=== PATIENT | male | born 1960 | race African-American/Black ===

== ENCOUNTER 2018-04-27 08:18 | Emergency (ER) | payer OTHER, SELFPAY ==
[2018-04-27 08:22] VITALS: BP 135/83; PULSE 74; RESP 18; TEMP 36.4; BMI 27.4
[2018-04-27] MEDS: SODIUM CHLORIDE 0.9% 1,000 ML 1000 ML IV (08:30)
--- NOTE | 2018-04-27 08:39 | DI.CT.S_ITS ---
PROCEDURE: CT HEAD/BRAIN WO CON INDICATIONS: Persistent dizziness. TECHNIQUE: Noncontrast 4.5 mm thick angled axial sections acquired from the foramen magnum to the vertex, with coronal and sagittal reformats. For radiation dose reduction, the following was used: automated exposure control, adjustment of mA and/or kV according to patient size. COMPARISON: None. FINDINGS: Image quality: Excellent. CSF spaces: Basal cisterns are patent. No extra-axial fluid collections. Ventricles are normal in size and shape. Brain: No intracranial hemorrhage, mass, or mass effect. Gonzalez-white matter interface is preserved. Skull and face: Calvarium and visualized facial bones are intact, without suspicious lesions. Sinuses: Visualized sinuses and mastoids are clear. IMPRESSION: 1. No acute intracranial abnormality. Dictated by: Alireza Cheatham M.D. on 04/27/2018 at 9:12 Approved by: Alireza Cheatham M.D. on 04/27/2018 at 9:13
[2018-04-27] MEDS: MECLIZINE HCL 12.5 MG TABLET 25 MG PO (09:19)
[2018-04-27] MEDS: ONDANSETRON 4 MG/2 ML INJ IV (09:19)
[2018-04-27] MEDS: SODIUM CHLORIDE 0.9% 1,000 ML 150 ML IV (09:19)
--- NOTE | 2018-04-27 09:23 | ED.DIZZY ---
HPI - Dizziness General Chief Complaint: Nausea/Vomiting/Diarrhea Stated Complaint: Nausea, weak, dizzy Time Seen by Provider: 04/27/18 08:23 Source: patient, EMS and RN notes reviewed Mode of arrival: EMS Limitations: no limitations History of Present Illness HPI Narrative: patient is a 57-year-old male who presents with high dizziness. He said he woke up this morning and felt dizzy. It is much worse whenever he moves. He feels nauseated he vomited a few times. It was most noticeable on the toilet. He did have 1 episode of diarrhea. he denies any chest pain heart palpitations or shortness of breath. He has no weakness or speech difficulty. MD complaint: dizziness Description: room spinning and lightheadedness Related Data Home Medications Medication Instructions Recorded Confirmed aspirin 81 mg PO QDAY #0 10/22/16 04/27/18 Previous Rx's Medication Instructions Recorded atorvastatin 80 mg PO HS #90 tab 11/11/16 metformin 850 mg PO BIDCC #180 tab 01/13/17 metoprolol succinate [Toprol XL] 25 mg PO QDAY #90 tab 01/13/17 glipizide 10 mg PO Q DAY #90 tab 06/02/17 meclizine 25 mg PO TID PRN #20 tab 04/27/18 ondansetron [Zofran ODT] 4 mg PO Q6H PRN #10 tab 04/27/18 Allergies Allergy/AdvReac Type Severity Reaction Status Date / Time No Known Drug Allergies Allergy Verified 04/27/18 08:34 Review of Systems Review of Systems All systems reviewed & are unremarkable except as noted in HPI and below Constitutional Denies chills, Denies fever(s), Denies lethargy and Denies weakness Eyes Denies change in vision, Denies eye discharge, Denies irritation and Denies loss of vision ENT Ears, Nose, Mouth, and Throat: Reports vertigo and Reports dizziness Cardiovascular Denies chest pain, Denies syncope, Denies irregular heart rhythm, Denies lightheadedness, Denies palpitations, Denies dyspnea, Denies dyspnea on exertion and Denies orthopnea Respiratory Denies cough, Denies dyspnea, Denies dyspnea on exertion and Denies wheezing Gastrointestinal Gastrointestinal: Denies abdominal pain, Denies change in bowel habits, Denies diarrhea, Denies nausea and Denies vomiting Musculoskeletal Denies back pain, Denies muscle weakness, Denies numbness and Denies tingling Integumentary/Breasts Denies pruritus, Denies erythema, Denies rash and Denies wounds Neurologic Reports system reviewed and no additional complaints, except as docu, Reports vertigo, Reports dizziness, Denies syncope, Denies lack of coordination, Denies loss of vision, Denies numbness, Denies convulsions, Denies seizure-like activity, Denies tingling and Denies weakness Endocrine Denies palpitations Allergic/Immunologic Denies wheezing PFSH Medical History Coronary artery disease (Acute) Diabetes (Acute) Family History Mother Diabetes mellitus Social History Smoking Status: Never smoker Exam Initial Vital Signs Initial Vital Signs: Vital Signs Temperature 97.6 F 04/27/18 08:22 Pulse Rate 74 04/27/18 08:22 Respiratory Rate 18 04/27/18 08:22 Blood Pressure 135/83 H 04/27/18 08:22 Const General: cooperative and well developed Nutritional Appearance: well nourished Orientation: alert, awake, oriented x3 and not confused Eyes EOM: EOM intact bilaterally Other: nystagmus to the right. Resp Effort & Inspection: normal respiratory effort, able to speak in complete sentences, no respiratory distress and no use of accessory muscles Auscultation: clear to auscultation bilaterally, no rales, no rhonchi and no wheezes Cardio Rate: regular rate Rhythm: regular rhythm Heart Sounds: no click, no gallops, no murmurs and no rubs Pulses: normal peripheral pulses Skin General: no rashes or lesions noted, No jaundice and No petechiae Neuro General: alert, oriented x3, gait normal and no focal motor deficits Cranial Nerves: CN's II-XI intact bilaterally, PERRL, EOM intact bilaterally, facial strength normal, able to rotate head bilaterally and able to elevate shoulders bilaterally Speech: speech normal Motor: muscle tone normal throughout Sensory Exam: no sensory deficits noted Coordination: [id number] test normal and [id number]-[id number] test normal Extrem General: full ROM, no clubbing, cyanosis or edema, no pedal edema and no calf tenderness Course Orders Ordered: ED Orders 04/27/18 08:39 CT head/brain wo con Stat 04/27/18 09:32 Complete Blood Count AUTO DIFF Stat Comprehensive Metabolic Panel Stat Troponin I Stat Discontinued Medications Sodium Chloride (Normal Saline 0.9%) 1,000 mls @ 1,000 mls/hr IV BOLUS ONE Stop: 04/27/18 09:25 Last Infusion: 04/27/18 09:26 Dose: 0 mls/hr Admin: 04/27/18 08:30 Dose: 1,000 mls/hr Sodium Chloride (Normal Saline 0.9%) 1,000 mls @ 150 mls/hr IV CONT IVONNE Last Infusion: 04/27/18 11:24 Dose: 0 mls/hr Admin: 04/27/18 09:19 Dose: 150 mls/hr Meclizine HCl (Antivert) 25 mg PO NOW ONE Stop: 04/27/18 08:40 Last Admin: 04/27/18 09:19 Dose: 25 mg Ondansetron HCl (Zofran) 4 mg IV NOW ONE Stop: 04/27/18 08:40 Last Admin: 04/27/18 09:19 Dose: 4 mg Vital Signs - 8 hr 04/27/18 08:22 04/27/18 11:00 Temperature 97.6 F Pulse Rate 74 81 Respiratory Rate 18 15 Blood Pressure 135/83 H Blood Pressure [Left Arm] 133/78 H Pulse Oximetry 99 MDM - Dizziness Lab Data Attestation: I reviewed the patient's lab results. Result diagrams: 04/27/18 09:32 04/27/18 09:32 Lab Results 04/27/18 04/27/18 Range/Units 09:32 09:32 WBC 7.6 (4.5-11.0) X10^3/uL RBC 4.53 (4.5-5.9) X10^6/uL Hgb 13.7 (13.5-17.5) g/dL Hct 40.6 L (41-53) % MCV 89.7 (80-100) fL MCH 30.1 (26-34) PG MCHC 33.6 (30-36) % RDW 13.1 (11.6-14.8) % Plt Count 155 (150-400) X10^3/uL Neut % (Auto) 66.9 (50-75) % Lymph % (Auto) 25.0 (25-40) % [place] % (Auto) 7.2 (3-14) % Eos % (Auto) 0.5 L (2-4) % Baso % (Auto) 0.4 (0-2) % Neut # (Auto) 5100 (8640-6492) /uL Sodium 143 (137-145) mmol/L Potassium 3.9 (3.4-5.1) mmol/L Chloride 103.0 (98-107) mmol/L Carbon Dioxide 26.0 (22-32) mmol/L BUN 15.0 (9-20) mg/dL Creatinine 0.70 (0.66-1.25) mg/dL Estimated GFR > 60.0 (>60) mL/min BUN/Creatinine Ratio 21.4 (6-22) Glucose 191 H (70-100) mg/dL Calcium 8.7 (8.4-10.2) mg/dL Total Bilirubin 0.5 (0.2-1.3) mg/dL AST 23 (17-59) IU/L ALT 27 (21-72) IU/L Alkaline Phosphatase 84 (38-126) U/L Troponin I 0.019 (0.01-0.034) ng/mL Total Protein 7.1 (6.3-8.2) g/dL Albumin 3.9 (3.5-5.0) g/dL Globulin 3.2 (1.7-4.1) g/dL Albumin/Globulin Ratio 1.2 (1.0-2.8) Imaging Data CT scan - head: Radiologist's impression: PROCEDURE: CT HEAD/BRAIN WO CON INDICATIONS: Persistent dizziness. TECHNIQUE: Noncontrast 4.5 mm thick angled axial sections acquired from the foramen magnum to the vertex, with coronal and sagittal reformats. For radiation dose reduction, the following was used: automated exposure control, adjustment of mA and/or kV according to patient size. COMPARISON: None. FINDINGS: Image quality: Excellent. CSF spaces: Basal cisterns are patent. No extra-axial fluid collections. Ventricles are normal in size and shape. Brain: No intracranial hemorrhage, mass, or mass effect. Gonzalez-white matter interface is preserved. Skull and face: Calvarium and visualized facial bones are intact, without suspicious lesions. Sinuses: Visualized sinuses and mastoids are clear. IMPRESSION: 1. No acute intracranial abnormality. Dictated by: Alireza Cheatham M.D. on 04/27/2018 at 9:12 ECG Data Attestation: I personally reviewed and interpreted this ECG as follows: Prior ECG tracings: available for review Interpretation: normal sinus rhythm rate [address] changes normal interval similar to previous in 2012 MDM Narrative Medical decision making narrative: The patient is feeling much better after Zofran and meclizine. He is able to sit up. this is likely of benign paroxysmal positional vertigo. I do not suspect stroke. Discharge Plan Departure Patient Disposition: Home, Self-Care Clinical Impression: Benign paroxysmal positional vertigo Discharge Date/Time: 04/27/18 11:26 Interventions: ED Discharge Assessment Last Done: 04/27/18 11:26 Instructions: Benign Paroxysmal Positional Vertigo Activity Restrictions/Additional Instructions: *You have been diagnosed with benign paroxysmal positional vertigo *What to do: Patient start to get better symptom control only at this time *Take medications as directed -Zofran every 4-6 hours needed for nausea or vomiting -meclizine as directed if needed for dizziness *Follow up with your primary care provider in 2-3 days *Return to ER if you should have persistent ongoing dizziness worsening dizziness, weakness difficulty speaking visual difficulty or any new, worsening or concerning symptoms Prescriptions: New ondansetron [Zofran ODT] 4 mg tablet,disintegrating 4 mg PO Q6H PRN (Reason: nausea and vomiting) Qty: 10 RF: 0 meclizine 25 mg tablet,chewable 25 mg PO TID PRN (Reason: dizziness) Qty: 20 RF: 0 No Action aspirin 81 MG tablet,delayed release (DR/EC) 81 mg PO QDAY Qty: 0 RF: 0 atorvastatin 80 MG tablet 80 mg PO HS Qty: 90 RF: 3 metformin 850 MG tablet 850 mg PO BIDCC Qty: 180 RF: 2 metoprolol succinate [Toprol XL] 25 MG tablet extended release 24 hr 25 mg PO QDAY Qty: 90 RF: 3 glipizide 10 MG tablet extended release 24hr 10 mg PO Q DAY Qty: 90 RF: 1
[2018-04-27 09:42] LABS: Add Manual Diff / Slide Review NO; Basophils Percent Auto 0.4 % (0-2); Eosinophils Percent Auto 0.5 % (2-4); Hematocrit 40.6 % (41-53); Hemoglobin 13.7 g/dL (13.5-17.5); Mean Corpuscular HGB Conc 33.6 % (30-36); Mean Corpuscular Hemoglobin 30.1 PG (26-34); Mean Corpuscular Volume 89.7 fL (80-100); Monocytes Percent Auto 7.2 % (3-14); Neutrophils Absolute Auto 5100 /uL (3000-5900); Neutrophils Percent Auto 66.9 % (50-75); Platelet Count 155 X10^3/uL (150-400); Red Blood Cell Count 4.53 X10^6/uL (4.5-5.9); Red Cell Distribution Width 13.1 % (11.6-14.8); White Blood Cell Count 7.6 X10^3/uL (4.5-11.0)
[2018-04-27 09:57] LABS: Alanine Aminotransferase 27 IU/L (21-72); Albumin 3.9 g/dL (3.5-5.0); Albumin Globulin Ratio 1.2 (1.0-2.8); Alkaline Phosphatase 84 U/L (38-126); Aspartate Aminotransferase 23 IU/L (17-59); BUN Creatinine Ratio 21.4 (6-22); Bilirubin Total 0.5 mg/dL (0.2-1.3); Calcium 8.7 mg/dL (8.4-10.2); Estimated Glomerular Filt Rate > 60.0 mL/min (>60); Globulin 3.2 g/dL (1.7-4.1); Glucose 191 mg/dL (70-100); HEMOLYSIS < 15 (0-50); Potassium 3.9 mmol/L (3.4-5.1); Sodium 143 mmol/L (137-145); Total Protein 7.1 g/dL (6.3-8.2)
[2018-04-27 10:09] LABS: Troponin I 0.019 ng/mL (0.01-0.034)
[2018-04-27 11:00] VITALS: BP 133/78; PULSE 81; RESP 15; O2SAT 99
== END 2018-04-27 11:26 | disposition home or self-care (01) ==
LOC: ED 10:25
PROVIDERS: Emergency Provider Emergency Medicine; Family Provider Family Medicine; PCP Family Medicine
DX: H81.10 Benign paroxysmal vertigo, unspecified ear (principal)
CPT/HCPCS: 70450; 80053; 82962; 84484; 85025; 93005; 96361; 96374; 99283; 99285; J2405

== ENCOUNTER 2018-04-28 02:40 | Observation (INO) | payer OTHER, SELFPAY ==
[2018-04-28] VITALS (8 sets, daily range): BP systolic 122–175; BP diastolic 70–96; PULSE 76–103; RESP 16–20; TEMP 36.4–36.9; O2SAT 95–99; BMI 28.3
--- NOTE | 2018-04-28 02:54 | ED.DIZZY ---
HPI - Dizziness General Chief Complaint: Dizziness Stated Complaint: HAS JAM, DIZZINESS Time Seen by Provider: 04/28/18 02:45 Source: patient and family Mode of arrival: ambulatory Limitations: no limitations History of Present Illness HPI Narrative: Patient returns to the ED forevaluation and treatment of dizziness. His symptoms started 2-3 days ago. He states his dizziness is more significant when standing up or moving his head. It improves when he is still and closes his eyes. He denies associated symptoms such as slurred speech, blurred vision or facial weakness. He denies any numbness, weakness or tingling his extremities. He denies recent illness such as runny nose, sore throat or cough. He was seen and evaluated in the emergency department earlier and had negative head CT and was discharged after symptoms improved from a dose meclizine. He went home and was unable to get his prescription filled had symptoms starting in at 1:00 a.m. complaint: dizziness Onset (ago): day(s) Timing: unsure Description: room spinning History of similar episodes: No History of trauma: No Severity: moderate Relieving factors: remaining still Exacerbating factors: movement Associated symptoms: ataxia Related Data Home Medications Medication Instructions Recorded Confirmed aspirin 81 mg PO QDAY #0 10/22/16 04/28/18 Multiple Vitamin-Minerals 1 tab PO DAILY 04/28/18 04/28/18 Previous Rx's Medication Instructions Recorded atorvastatin 80 mg PO HS #90 tab 11/11/16 metformin 850 mg PO BIDCC #180 tab 01/13/17 metoprolol succinate [Toprol XL] 25 mg PO QDAY #90 tab 01/13/17 glipizide 10 mg PO Q DAY #90 tab 06/02/17 meclizine 25 mg PO TID PRN #20 tab 04/27/18 ondansetron [Zofran ODT] 4 mg PO Q6H PRN #10 tab 04/27/18 Allergies Allergy/AdvReac Type Severity Reaction Status Date / Time No Known Drug Allergies Allergy Verified 04/27/18 08:34 Review of Systems Review of Systems All systems reviewed & are unremarkable except as noted in HPI and below Constitutional Denies chills, Denies fever(s), Denies lethargy and Denies weakness Eyes Denies change in vision, Denies eye discharge, Denies irritation and Denies loss of vision ENT Ears, Nose, Mouth, and Throat: Denies change in voice, Reports vertigo, Reports dizziness, Denies neck pain and Denies sore throat Cardiovascular Denies chest pain, Denies irregular heart rhythm, Denies lightheadedness, Denies palpitations, Denies dyspnea, Denies dyspnea on exertion and Denies orthopnea Respiratory Denies cough, Denies dyspnea, Denies dyspnea on exertion and Denies wheezing Gastrointestinal Gastrointestinal: Reports nausea Genitourinary Denies hematuria, Denies flank pain, Denies urinary incontinence and Denies urinary urgency Musculoskeletal Denies neck pain Integumentary/Breasts Denies pruritus, Denies erythema, Denies rash and Denies wounds Neurologic Reports vertigo, Reports dizziness, Denies loss of vision and Denies weakness Psychiatric Reports system reviewed and no additional complaints, except as docu Endocrine Denies palpitations Allergic/Immunologic Denies wheezing [facility] Medical History Coronary artery disease (Acute) Diabetes (Acute) Family History: Reviewed 04/28/18 by Roro Peñaloza DO Social History household members: spouse and family Smoking Status: Never smoker alcohol intake: former Exam Narrative Exam Narrative: On arrival patient is pleasant 57M obviously dizzy and stuggling to walk a straight line. Initial Vital Signs Initial Vital Signs: Vital Signs Temperature 97.8 F 04/28/18 02:55 Pulse Rate 76 04/28/18 02:55 Respiratory Rate 18 04/28/18 02:55 Blood Pressure 142/78 H 04/28/18 02:55 Pulse Oximetry 98 04/28/18 02:55 Const General: cooperative and well developed Nutritional Appearance: well nourished Orientation: alert, awake, oriented x3 and not confused [facility] Head: normocephalic and atraumatic Ears: external ears normal and TM's normal bilaterally Nose: external nose normal and No nasal discharge Face and sinus: sinuses nontender, face symmetric, no sinus tenderness and No dry mucous membranes Mouth: oral mucosae normal and moist mucous membranes Teeth and gingiva: dentition normal Throat: tonsils normal and uvula midline Eyes General: appearance normal, both eyes and all related structures Eyelids: eyelids normal Conjunctivae: conjunctivae normal Sclera: sclerae normal Pupils: PERRL EOM: EOM intact bilaterally Neck Neck: normal visual inspection, trachea midline, No lymphadenopathy, No midline deformity and No JVD Lymphatic: No lymphedema Resp Effort & Inspection: normal respiratory effort, able to speak in complete sentences, no respiratory distress and no use of accessory muscles Auscultation: clear to auscultation bilaterally, no rales, no rhonchi and no wheezes Cardio Rate: regular rate Rhythm: regular rhythm Heart Sounds: no click, no gallops, no murmurs and no rubs Pulses: normal peripheral pulses GI Inspection: non-distended Palpation: soft, no hepatosplenomegaly, No guarding, No pulsatile mass and No tender Auscultation: normal bowel sounds Back/Spine/Pelvis Back: No CVA tenderness Cervical Spine: cervical ROM normal and No pain with cervical ROM Thoracic/Lumbar Spine: thoracic and lumbar spine normal to inspection Neuro General: alert, oriented x3, gait normal, no focal motor deficits and CN's II-XI intact bilaterally Speech: speech normal Gait: ataxic Motor: muscle tone normal throughout Sensory Exam: no sensory deficits noted Other: NIH Stroke Scale 1a. LOC: Patient is alert and keenly responsive (0) 1b. LOC Questions: Patient answers both LOC questions accurately (0) 1c. LOC Commands: Patient performs both tasks correctly (0) 2. Best Gaze: Normal (0) 3. Visual: No visual loss (0) 4. Facial palsy: Normal symmetrical movements (0) 5. Motor arm: No drift (0) 6. Motor leg: No drift (0) 7. Limb ataxia: Absent (0) 8. Sensory: Normal (0) 9. Best language: No aphasia; normal (0) 10. Dysarthria: Normal (0) 11. Extinction and inattention: No abnormality (0) NIHSS: 0 HINTS Exam: 1. Head Impulse: smooth eye movements, no saccade 2. Nystagmus: Mild R nystagmus, unilateral 3. Test of Skew: No motion of eyes Extrem General: full ROM, no clubbing, cyanosis or edema, no pedal edema and no calf tenderness Course Orders Ordered: Acetaminophen (Tylenol) 650 mg PO Q6HR PRN PRN Reason: As Needed for Fever/Mild Pain Aspirin (Aspirin Ec) 81 mg PO DAILY IVONNE Atorvastatin Calcium (Lipitor) 80 mg PO QHS [facility] Last Admin: 04/28/18 21:12 Dose: 80 mg Meclizine HCl (Antivert) 25 mg PO TID PRN PRN Reason: dizziness Metformin HCl (Glucophage) 850 mg PO BIDWM IVONNE Last Admin: 04/28/18 17:03 Dose: 850 mg Admin: 04/28/18 09:48 Dose: 850 mg Ondansetron HCl (Zofran Odt) 4 mg PO Q6H PRN PRN Reason: nausea and vomiting Discontinued Medications Aspirin (Aspirin Chew) 324 mg PO NOW ONE Stop: 04/28/18 06:04 Last Admin: 04/28/18 06:05 Dose: 324 mg Meclizine HCl (Antivert) 50 mg PO NOW ONE Stop: 04/28/18 03:05 Last Admin: 04/28/18 03:13 Dose: 50 mg Reevaluation(s) Reevaluation #1: patient has resolution of symptoms after meclizine Consultations Consultation #1: upon receipt of CTA I placed a call to [facility] Stroke. Case discussed with Dr. Crawford and he states the vertebral artery stenosis is unlikely to be the cause of today's symptoms but given patient risk factors, lack of available followup, CT findings that we should admit and complete a stroke work up with MR/MRA Time: 06:09 Consultation #2: Dr. Peñaloza contacted regarding patient, she is happy to accept patient on her service and will evalutate in the ED Time: 06:10 Vital Signs - 8 hr 04/29/18 05:17 Temperature 97.9 F Pulse Rate 86 Respiratory Rate 20 Blood Pressure 141/84 H MDM - Dizziness Differential Diagnosis Likely benign paroxysmal positional vertigo, orthostatic hypotension, vertebral basilar insufficiency, cerebrovascular accident, acute vestibular neuronitis and transient cerebral ischemia Medical Records Attestation: I reviewed the patient's medical records. Lab Data Attestation: I reviewed the patient's lab results. reviewed earlier labs Lab Results 04/28/18 04/28/18 Range/Units Unknown Unknown Hemoglobin A1c 12.1 H (4.0-6.0) % Triglycerides 77 (35-150) mg/dL Cholesterol 203 H (140-199) mg/dL LDL Cholesterol, Calc 131 H (<100) mg/dL HDL Cholesterol 57 (40-60) mg/dL Imaging Data CTA Head/Neck: Radiologist's impression: CTA Neck: No occlusion, dissection. 40-50% focal stenosis of L vertebral artery. CTA Head: No occlusion or critical stenosis of intracranial vessels. Calcifications of vertebral arterios CT Head: No acute findings. Discharge Plan Departure Patient Disposition: Admitted as Observation Clinical Impression: Vertigo, Stenosis of left vertebral artery Discharge Date/Time: 04/28/18 08:08 Interventions: ED Discharge Assessment Last Done: 04/28/18 08:07 Admit Date/Time: 04/28/18 06:23 Admit Provider: Roro Peñaloza
[2018-04-28] MEDS: MECLIZINE HCL 12.5 MG TABLET 50 MG PO (03:13)
--- NOTE | 2018-04-28 04:00 | DI.CT.S_ITS ---
PROCEDURE: CT ANGIO HEAD AND NECK INDICATIONS: ongoing dizziness TECHNIQUE: Pre-contrast 4.5 mm thick sections acquired from the foramen magnum to the vertex. After the administration of intravenous contrast, 1 mm thick sections acquired from the aortic arch through the [place]. Post-contrast 4.5 mm thick sections then re-acquired from the foramen magnum to the vertex. 3-dimensional aswopxm-kpmjtjjtz-gttkyrafeo (MIP) and/or volume rendering reformats were acquired of the central intracranial vasculature and neck separately. COMPARISON: [facility], CT, CT HEAD/BRAIN WO CON, 04/27/2018, 8:41. FINDINGS: Image quality: Excellent. BRAIN: CSF spaces: Ventricles are normal in size and shape. Basal cisterns are patent. No extra-axial fluid collections. Brain: No midline shift. No intracranial bleeds or masses. Gonzalez-white matter interface appears intact. Skull and face: Calvarium and facial bones appear intact, without suspicious lesions. Orbits appear normal. Sinuses: Sinuses and mastoids are clear. HEAD CT ANGIOGRAPHY: Anterior circulation: Intracranial internal carotid arteries are normal in size and flow. The flow within the paired anterior cerebral arteries is normal and symmetric. The flow within the middle cerebral arteries is normal and symmetric. The anterior communicating artery is seen. No aneurysms are seen. Posterior circulation: Visualized portions of the vertebral arteries demonstrate normal caliber, and join to form a normal appearing basilar artery. Flow within the posterior cerebral arteries is normal and symmetric. No aneurysms are seen. NECK CT ANGIOGRAPHY: Carotid system: The great vessels demonstrate a conventional anatomy as they arise from the aortic arch. The origins of the common carotid arteries appear patent. The common carotid arteries demonstrate normal caliber and courses. The bifurcation regions are both widely patent. The internal carotid arteries demonstrate normal calibers and courses. Posterior circulation: The origins of the vertebral arteries both appear widely patent. There bilateral vertebral artery atherosclerotic calcifications, with 40-50% focal stenosis involving the left vertebral artery at the proximal V4 segment. Normal appearing basilar artery. Soft tissues: Visualized neck soft tissues demonstrate no suspicious abnormalities. Bones: No suspicious bony lesions. Mild discogenic changes are seen in the cervical spine Visualized cervical spine appears normally aligned. IMPRESSION: Mild carotid atherosclerosis. No focal ICA stenosis or occlusion. Scattered vertebral artery calcifications bilaterally with focal 40-50% left vertebral artery stenosis as above. Any quantitative measurements of stenosis were performed using NASCET criteria. Dictated by: Tripp Lema M.D. on 04/28/2018 at 7:34 Approved by: Tripp Lema M.D. on 04/28/2018 at 7:54
--- NOTE | 2018-04-28 06:03 | PC.NURSE ---
pt reports ambulated to bathroom in stead gait and back to bed with improved dizziness.
[2018-04-28] MEDS: ASPIRIN 81 MG TAB 324 MG PO (06:05)
--- NOTE | 2018-04-28 08:24 | DI.ECHO.S_ITS ---
[facility] +---------+ : : [address] : [address] : : : : [id number] : : : : Phone: [phone]+ Echocardiogram Report + + :Name: HEAVEN CESPEDES V Study Date: 04/28/2018 Height: 67 in : :[facility] Weight: 175 lb : : Gender: Male BSA: 1.9 m2 : :: 1960 Age: 57 yrs BP: 175/96 mmHg: :Reason For Study: CAD : : Performed By: Sendy Young : :Referring: EARL ORDONEZ : + + Interpretation Summary The left ventricle is normal in size. The ejection fraction is estimated to be 55-60%. The right ventricle is grossly normal size. The right ventricular systolic function is normal. No significant valvular pathology seen. Procedure: A two-dimensional transthoracic echocardiogram with color flow and Doppler was performed. The study quality was technically adequate. There is no prior echocardiogram noted for this patient. The patient was in normal sinus rhythm during the exam. Left Ventricle: The left ventricle is normal in size. There is normal left ventricular wall thickness. There is no thrombus. The ejection fraction is estimated to be 55-60%. There are no focal wall motion abnormalities. Assessment of diastolic parameters indicates a relaxation abnormality of the left ventricle, consistent with normal filling pressures. Right Ventricle: The right ventricle is grossly normal size. The right ventricular systolic function is normal. Atria: The left atrial size is normal. Right atrial size is normal. The interatrial septum is intact with no evidence for an atrial septal defect. Mitral Valve: The mitral valve leaflets appear borderline thickened, but open well. There is mild mitral annular calcification. There is trace mitral regurgitation. Aortic Valve: The aortic valve is trileaflet. The aortic valve opens well. No aortic regurgitation is present. Tricuspid Valve: The tricuspid valve is normal in structure and function. There is trace tricuspid regurgitation. The right ventricular systolic pressure is estimated at 18.3 mmHg assuming a right atrial pressure of 3 mm Hg. Pulmonic Valve: The pulmonic valve is not well seen, but is grossly normal. There is no pulmonic valvular regurgitation. Great Vessels: The aortic root is normal size. The dimensions of the ascending aorta are normal. The IVC is of normal diameter and collapses greater than 50% with a sniff. This suggests a low right atrial pressure of 3 mm Hg. Pericardium/ Pleura There is no pericardial effusion. There is no pleural effusion. MMode/2D Measurements & Calculations LVIDd: 5.3 cm Ao root diam: 3.2 cm LVIDs: 3.9 cm Aortic Jxn: 2.7 cm FS: 26.1 % asc Aorta Diam: 3.3 cm EPSS: 0.92 cm Ao Arch Diam (Prox Trans): 2.9 cm IVSd: 1.0 cm LVPWd: 0.88 cm LV rincon. diameter/BSA (cm/m^2): 2.8 LV sys. diameter/BSA (cm/m^2): 2.1 LA dimension: 3.6 cm RA long axis: 4.5 cm LA A2 area: 15.0 cm2 RA area: 14.2 cm2 LA A4 area: 15.5 cm2 RA vol: 37.8 ml LA length (vol): 4.7 cm RA : 19.8 ml/m2 LA vol: 41.8 ml IVC diam: 0.74 cm LA vol index: 21.9 ml/m2 RVDd major: 5.9 cm RVD1 (basal): 3.0 cm RVD2 (mid): 2.4 cm Doppler Measurements & Calculations Ao V2 max: 144.4 cm/sec MV E max roman: 71.3 cm/sec Ao V2 mean: 98.1 cm/sec MV A max roman: 75.5 cm/sec Ao max P.3 mmHg MV E/A: 0.94 Ao mean P.4 mmHg Med Peak E' Roman: 7.7 cm/sec Ao V2 VTI: 28.8 cm E/E' med: 9.2 Lat Peak E' Roman: 10.5 cm/sec E/E' lat: 6.8 E/e' average: 8.0 MV dec time: 0.19 sec MV P1/2t: 58.4 msec PA V2 max: 89.8 cm/sec MV P1/2t max roman: 72.2 cm/sec PA V2 mean: 62.8 cm/sec MVA(P1/2t): 3.8 cm2 PA mean P.8 mmHg PA Accel Time: 0.14 sec Reading Physician:PM
--- NOTE | 2018-04-28 08:28 | PM.HP.1 ---
History of Present Illness Chief complaint: Vertigo/ Stenosis of the left Vetebral Artery Narrative: Tanner Ordonez is a 57 year old male with history of coronary artery disease with stent placement in 2001, hypertension, diabetes, hyperlipidemia who presented twice to the emergency department in the last 24 hr for dizziness. During his 1st visit he was diagnosed with BPPV which responded miraculously to meclizine. His 2nd episode of dizziness started at 1:00 a.m. while he was lying in bed. He became nauseous and diaphoretic. When he sat up he became dizzy. He was not able to walk unaided at this time. He does report an episode of vomiting as well. A CT angio of his head showed a 50% left vertebral artery blockage. He tells me he has not been taking his aspirin, atorvastatin, metoprolol, or diabetic medications. He tells me that things were under control and he and Dr. Morillo were reducing these medications. Patient History Medical History Coronary artery disease (Acute) Diabetes (Acute) Family & Social History Family History: Reviewed 04/28/18 by Roro Peñaloza DO Tobacco & Substance use: Smoking Status Never smoker alcohol intake frequency 0-2 drinks per day Substance Use Type does not use Meds Home Medications Medication Instructions Recorded Confirmed Type aspirin 81 mg PO QDAY #0 10/22/16 04/28/18 History atorvastatin 80 mg PO HS #90 tab 11/11/16 04/28/18 Rx metformin 850 mg PO BIDCC #180 tab 01/13/17 04/28/18 Rx metoprolol succinate [Toprol XL] 25 mg PO QDAY #90 tab 01/13/17 04/28/18 Rx glipizide 10 mg PO Q DAY #90 tab 06/02/17 04/28/18 Rx meclizine 25 mg PO TID PRN #20 tab 04/27/18 04/28/18 Rx ondansetron [Zofran ODT] 4 mg PO Q6H PRN #10 tab 04/27/18 04/28/18 Rx Multiple Vitamin-Minerals 1 tab PO DAILY 04/28/18 04/28/18 History Allergies Allergy/AdvReac Type Severity Reaction Status Date / Time No Known Drug Allergies Allergy Verified 04/27/18 08:34 Review of Systems Review of Systems All systems reviewed & are unremarkable except as noted in HPI and below Exam Vital Signs (past 8 hours): Vital Signs - 8 hr 04/28/18 02:55 04/28/18 06:01 Temperature 97.8 F Pulse Rate 76 87 Respiratory Rate 18 16 Blood Pressure 142/78 H Blood Pressure [Left Arm] 143/86 H Pulse Oximetry 98 98 Pulse Oximetry 98 Oxygen Delivery Method Room Air Narrative Exam Narrative: GENERAL: Well-appearing, well-nourished and in no acute distress. HEENT: Head normocephalic, atraumatic. Eyes pupils equal round and reactive to light, extraocular movements intact, sclera anicteric, conjunctivae normal. Tympanic membranes normal. Nares patent. Mucous membranes moist. NECK: Supple, full range of motion CHEST: Breath sounds equal bilaterally, no wheezes rales or rhonchi. CARDIAC: Regular rate and rhythm without murmurs, rubs or gallops. ABDOMEN: Soft, nontender. Normoactive bowel sounds all 4 quadrants. No guarding or rebound. EXTREMITIES: Normal range of motion, no clubbing or edema. NEUROLOGICAL: Cranial nerves II through XII grossly intact. Normal speech. SKIN: Warm, dry, no petechiae, no rashes or lesions. Objective Labs Labs: Labs are from his 1st emergency department visit 04/27/2018 at 9:32 a.m. He had a fairly unremarkable CBC, normal comprehensive metabolic panel with the exception of glucose at 191, troponin of 0.019 Hemoglobin A1c of 6.9 in October of 2017 Triglycerides were 55, total cholesterol 214, LDL 146, and HDL 57 Assessment & Plan (1) Stenosis of left vertebral artery: Current visit: Yes Status: Acute Continue on aspirin 81 mg at this time since patient has not been taking this medication. Will review MRI results to further understand if this is the cause of his vertigo. He also will need good disease management for his underlying atherosclerosis to prevent further worsening. See below. (2) Vertigo: Current visit: Yes Status: Acute Continue with meclizine as needed. MRI of the brain to determine if there are any lesions causing the vertigo. (3) Coronary artery disease involving [place] coronary artery of [place] heart without angina pectoris: Current visit: Yes Status: Chronic Will monitor for signs of arrhythmia. Will continue 81 mg of aspirin. Will continue his atorvastatin. (4) Hypertension: Qualifiers: Hypertension type: secondary to endocrine disorders Qualified Code(s): I15.2 - Hypertension secondary to endocrine disorders Current visit: Yes Status: Chronic Blood pressures have been in the mild hypertensive range with systolics in the 140s. He will likely need to have his losartan restarted once this acute phase has subsided. Would not want to lower his blood pressures further at this time. (5) Hyperlipidemia: Current visit: Yes Status: Chronic Restart atorvastatin at 80 mg given his risk factors. (6) Type 2 diabetes mellitus without complication: Current visit: Yes Status: Chronic Will check a hemoglobin A1c to see what kind of control he has had over the past 3 months. At his visit in October he had a hemoglobin A1c of 6.9 and was diet controlled per patient. (7) Non compliance w medication regimen: Current visit: Yes Status: Acute Will work with patient to identify the source of his noncompliance. He will require close follow-up. Time Spent With Patient Time with patient: Greater than 35 minutes
[2018-04-28 09:44] LABS: Cholesterol 203 mg/dL (140-199); HDL Cholesterol 57 mg/dL (40-60); LDL Cholesterol Calculated 131 mg/dL (<100); Triglycerides 77 mg/dL (35-150)
[2018-04-28] MEDS: METFORMIN 850 MG TABLET PO ×2 (09:48→17:03)
[2018-04-28 09:52] LABS: Hemoglobin A1C% w Est Avg Glu 12.1 % (4.0-6.0)
--- NOTE | 2018-04-28 11:09 | ST.IPIE ---
Current Diagnoses Type 2 diabetes mellitus without complications (04/28/18) Hyperlipidemia, unspecified (04/28/18) Hypertension secondary to endocrine disorders (04/28/18) Atherosclerotic heart disease of [place] coronary artery without angina pectoris (04/28/18) Occlusion and stenosis of left vertebral artery (04/28/18) Dizziness and giddiness (04/28/18) Patient's other noncompliance with medication regimen (04/28/18) Past Medical History (Last Reviewed 04/28/18 @ 09:12 by Radhika Monsivais, PT) Stenosis of left vertebral artery (Acute Medical) Vertigo (Acute Medical) Coronary artery disease involving [place] coronary artery of [place] heart without angina pectoris (Chronic Medical 11/11/16) Hypertension (Chronic Medical) Hyperlipidemia (Chronic Medical 11/11/16) Type 2 diabetes mellitus without complication (Chronic Medical 11/11/16) Coronary artery disease (Acute Medical) Diabetes (Acute Medical) ST IP Initial Evaulation Report SCHOOL PS[employer]CHOLOGY SPECIALIST Clinical Swallow Evaluation Start: 04/28/18 10:50 Freq: Status: Active Protocol: Document 04/28/18 10:54 [facility] (Rec: 04/28/18 11:09 [facility] [id number]) Clinical Swallow Evaluation Session Time Visit Start Time 10:30 Visit Stop Time 10:45 Total Visit Minutes [address] Peñaloza Reason for Referral Protocol Setting Assessment Location Acute Care Visit Type Note Type Initial Evaluation Next Note Type Next Note Type Discharge Summary Patient Information Identification Type Name Date of ID Card History Patient is a 57-year-old male who came to [facility] twice with complaints of dizziness and nausea. He has be inconsistent in taking medication recently. He has a medical history of CAD with stent placement in 2001, HTN, diabetes and hyperlipidemia. A CT of the head showed 50% left vertebral artery blockage . Per Dr Peñaloza's note, an MRI may be warranted as well. No previous history of dysphagia or aphasia, per patient. Subjective Observations Patient awake and alert, resting in bed with no family present. No complaints of pain pre/post evaluation. Denied any change in voice/speech/ swallowing ability. Thinking clearly. Independently trialed all items in swallow evaluation. Stated he was unsure if it was safe for him to drive with his condition and is eager to resolve his dizziness issue. SCHOOL PSYCHOLOGY SPECIALIST mentioned outpatient PT for vestibular emphasis and the patient was very interested in this. Yes, I need to do that. SCHOOL PSYCHOLOGY SPECIALIST will follow up with PT about this. Evaluation Liquids Trialed Thin Solids Trialed Dysphagia Advanced Regular Administration Type Controlled Cup Sip Cup Consecutive Sips Staw Self-Feeding Oral Impairment WNL Oral Strategies Upright at 90 degrees Oral Phase Comments No oral impairment Pharyngeal Impairment WNL Pharyngeal Phase Comments No pharyngeal impairment Findings Dysphagia Type No dysphagia Impressions Patient presents with no oropharyngeal difficulty or impairment. He was able to independently tolerate soft fruit, a regular jason cracker and multiple cup/straw sips of water and coffee without any difficulty. No overt s/s of aspiration. No oropharyngeal change or decline in function. Cough/ throat clear strong and productive. Patient observed to be and reported to be at baseline. No reported difficulty with taking medication. Recommend regular textures with thin liquids, per baseline. SCHOOL PSYCHOLOGY SPECIALIST spoke with patient to educate him on how speech therapy can be of assistance if he ever experiences any changes in speech, swallowing, voice, or cognition. The patient verbalized understanding. No further speech therapy services warranted at this time. Plan to D/C the patient. Please reconsult if needed, Diet Recommendations Liquids Order Thin Diet Order Regular Medication Recommendations As Tolerated Aspiration Precautions Recommended Precautions Upright at 90 Degrees Treatment Plan Placement Recommendations after Outpatient Therapy Discharge Appropriate for Therapy No Therapy Recommendations No speech therapy services warranted at this time. Please reconsult if needed. Referrals/Other Recommended Referrals Physical Therapy
--- NOTE | 2018-04-28 12:32 | OT.IP.EVAL ---
Current Diagnoses Type 2 diabetes mellitus without complications (04/28/18) Hyperlipidemia, unspecified (04/28/18) Hypertension secondary to endocrine disorders (04/28/18) Atherosclerotic heart disease of [place] coronary artery without angina pectoris (04/28/18) Occlusion and stenosis of left vertebral artery (04/28/18) Dizziness and giddiness (04/28/18) Patient's other noncompliance with medication regimen (04/28/18) Past Medical History (Last Reviewed 04/28/18 @ 09:12 by Radhika Monsivais, PT) Stenosis of left vertebral artery (Acute) Vertigo (Acute) Coronary artery disease involving [place] coronary artery of [place] heart without angina pectoris (Chronic 11/11/16) Hypertension (Chronic) Hyperlipidemia (Chronic 11/11/16) Type 2 diabetes mellitus without complication (Chronic 11/11/16) Coronary artery disease (Acute) Diabetes (Acute) Occupational Therapy Inpatient Evaluation/Re-Eval M1 PT/OT-IP Prior Functional Status Start: 04/28/18 12:09 Freq: NEEDED Status: Active Protocol: Document 04/28/18 12:09 [facility] (Rec: 04/28/18 12:31 [facility] [id number]) Medical Review Prior Functional Status Medical History Reviewed Yes Diet/Fluid Consistency Regular Thin Liquids Mobility and Gait CPmpletely independent with no devices. Activities of Daily Living and IADL's Independent. Social History Household Members spouse family Living Arrangements House Number of Floors (Floors) Two Floors Number of Stairs To Enter/Railing? 1 step to get into the house and one flight to get to upstairs to bathroom and bedroom. 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 M2 OT-IP Current Condition Start: 04/28/18 12:09 Freq: Status: Active Protocol: Document 04/28/18 12:09 [facility] (Rec: 04/28/18 12:31 [facility] [id number]) Occupational Therapy Current Condition Current Condition Evaluation Date 04/28/18 Treatment Diagnosis Dizziness, stenosis of left vetebral artery M3 OT- IP Subjective and Pain Start: 04/28/18 12:09 Freq: Status: Active Protocol: Document 04/28/18 12:09 [facility] (Rec: 04/28/18 12:31 [facility] [email or web address]) OT- Subjective Occupational Therapy Visit Type Type Initial Evaluation Visit Start Time 08:45 Visit Stop Time 10:15 Total Visit Minutes 90 Occupational Therapy Visit Comments Patient/Caregiver Goals Pt wanting to go home and states to get back to his diet and taking his medications right. OT Pain Assessment Pain When Pain Assessed At Rest Pain Present Pain Present Denied Pain M4 OT- IP ADL's Start: 04/28/18 12:09 Freq: Status: Active Protocol: Document 04/28/18 12:09 [facility] (Rec: 04/28/18 12:31 [facility] [email or web address]) OT [id number] General Evaluation Self-Feeding Ability Independent OT ADL-Grooming General Evaluation Grooming Ability Independent Areas Needing Assistance Retrieving/Set-up of Grooming Items OT ADL-Oral Care General Eval Oral Care Ability Independent Areas of Assistance Retrieving/Set-Up of Items OT ADL-Dressing General Eval Upper Body Dressing Ability Independent Lower Body Dressing Ability Standby Assistance Areas Needing Assistance Retrieving/Set-up of Clothing Comments OT Dressing Comments SBA for LB dressing due to occasionally unsteady due to dizziness on his feet , especailly if standing up fast . OT ADL-Toileting General Evaluation Toileting Ability Independent M6 OT- IP Functional Cognition Start: 04/28/18 12:09 Freq: Status: Active Protocol: Document 04/28/18 12:09 [facility] (Rec: 04/28/18 12:31 [facility] [email or web address]) Cognitive Factors Limiting Selfcare Function Cognitive Ability Level of Alertness Alert Patient Orientation Name Age Birthday Month Date Year Day of Week Place Situation Attention Span Ability Capable of Focused Attention Capable of Sustained Attention Ability to Follow Commands Able to Follow One Step Commands Able to Follow Multi-Step Commands Memory Description Immediate Intact Short Term Impaired Safety Awareness Underestimates Need for Assistance Problem Solving Ability Needs Assist to Identify Solutions Executive Function Ability Unable to Switch Focus Unable to Remember Details Cognitive Tests SLUMS Pt scored 22/30 which implies cognitive deficits. ACL Pt scored 4.4 which implies live with someone who does a daily check on the environment and removes any safety hazzards and solves any new problems. OT- Vision and Hearing OT- Hearing Assessment OT- Hearing Assessment WFL OT- Vision Assessment Visual Acuity WFL M7 OT- IP Mobility and Balance Start: 04/28/18 12:09 Freq: Status: Active Protocol: Document 04/28/18 12:09 [facility] (Rec: 04/28/18 12:31 [facility] [email or web address]) OT- Bed Mobility Assessment Rolling Level of Assistance Independent Supine to Sit Supine to Sit Assist Independent Sit to Supine Sit to Supine Assist Independent Scooting Scooting to Edge of Bed Independent OT-Transfer Assessment Sit to and From Stand Sit to and from Stand Standby Assistance Transfers Transfer Ability Independent Standby Assistance Technique Transfer Destination Bed Toilet Devices Transfer Assistive Devices None Comments Mobility Comments SBA while picking things up from the floor and 360 degrees . OT- Balance Assessment Sitting Balance and Reactions Static Sitting Balance Ability Normal Dynamic Sitting Balance Ability Normal Standing Balance and Reactions Static Standing Balance Ability Normal Dynamic Standing Balance Ability Good M8 OT- IP Objective Assessments Start: 04/28/18 12:09 Freq: Status: Active Protocol: Document 04/28/18 12:09 [facility] (Rec: 04/28/18 12:31 [facility] [email or web address]) OT Gross Range of Motion Upper Extremity Range of Motion Assessment Within Functional Limits OT Strength Upper Extremity Strength Assessment Within Functional Limits M9 OT- IP Assessment and Plan Start: 04/28/18 12:09 Freq: Status: Active Protocol: Document 04/28/18 12:09 [facility] (Rec: 04/28/18 12:31 [facility] [email or web address]) OT Summary Assessment and Plan Potential Rehabilitation Potential Excellent Analytic Complexity at Evaluation Low Summary OT Impairments Balance Functional Cognition Progress Towards Goals Progressing Toward Goals Assessment Summary Pt main deficit decreased STM, and continues to have mild dizziness. Goals Dressing Goal Independent Bathing Goal Independent Shower Transfer Goal Independent Patient/Caregiver Education Goal Demonstrate Energy Conservation and Pacing Caregiver Independent Assisting Patient OT-Other Goals Pt to have good understanding for memory needs, and to have good understanding to assist pt for all needs. Frequency of Treatment Frequency Of Treatment Once a Day Treatment Plan OT Treatment Plan ADL Training Functional Cognition Training Functional Mobility IADL Training Patient/Family Education Discharge Planning Discharge Recommendations OT Discharge Recommendations Home with Assistance
--- NOTE | 2018-04-28 13:33 | PC.NURSE ---
Pt has had a OT eval and echo. OT reports Pt had some short term memory issues and cognitive deficit. Called [facility] to report to Dr. Peñaloza and [place]. stated she was not in but provided cell phone to contact her with. Called Dr. Peñaloza's cell and am awaiting a call back.
--- NOTE | 2018-04-28 15:51 | PT.IIE ---
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 PT-IP Current Condition Start: 04/28/18 15:29 Freq: NEEDED Status: Active Protocol: Document 04/28/18 15:30 [facility] (Rec: 04/28/18 15:50 [facility] [id number]) Physical Therapy Current Condition Current Condition Evaluation Date 04/28/18 Treatment Diagnosis vertigo, dizziness M3 PT-IP Subjective Start: 04/28/18 15:29 Freq: NEEDED Status: Active Protocol: Document 04/28/18 15:30 [facility] (Rec: 04/28/18 15:50 [facility] [id number]) Subjective Physical Therapy Visit Type Type Initial Evaluation Visit Start Time 09:15 Visit Stop Time 09:40 Total Visit Minutes 25 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 He went to ER within last 24 hours d/ t dizziness and was given meclizine, which helped the dizziness resolve. Pt went home and was unable to fill the prescription and woke up to use restroom in the middle of the night and had spinning dizziness when going to the bathroom & called 911. Pt reports spinning subsided and turned to a cloudy & woozy feeling with nausea. Reports after meclizine this AM, he is doing better, reports dizziness when sitting up 1/10 and a little more once standing and walking he feels off. Therapy Pain Assessment Pain Present Pain Present Denied Pain M4 PT-IP Mobility and Gait Start: 04/28/18 15:29 Freq: NEEDED Status: Active Protocol: Document 04/28/18 15:30 [facility] (Rec: 04/28/18 15:50 [facility] [id number]) PT-Bed Mobility Assessment Rolling Type of Rolling Log Rolling Level of Assist Independent Supine to Sit Supine to Sit Independent Sit to Supine Sit to Supine Independent Scooting Scooting to Edge of Bed Independent PT-Transfer Assessment Sit to and From Stand Sit to and from Stand Independent Equipment Transfer Assistive Device None Orthotic/Prosthetic Devices or Brace: No Transfer Ability Level of Assist Independent Gait Assessment Gait Gait Assistance Required: Standby Assistance Distance (Feet) (feet) 60 Assistive Devices Assistive Device None Orthotic/Prosthetic Devices or Brace: No Comments Gait Comments Minor lateral shifting and deviations with gait. Inc dizziness minorly with gait. Turning to R and L inc dizziness but no nystagmus Stair Climbing Assessment Evaluation Level of Assist On Stairs Standby Assistance Devices Stair Climbing Assistive Devices Right Railing Technique/Endurance Stair Climbing Direction Ascend and Descend Number of Steps Climbed 10 Query Text: Comments Stair Climbing Comments portable stair used-pt reports feeling less dizzy after going up/down stair. PT-Balance Assessment Sitting Balance and Reactions Static Sitting Balance Ability Normal Dynamic Sitting Balance Ability Normal Standing Balance and Reactions Static Standing Balance Ability Good Dynamic Standing Balance Ability Fair Functional Assessments Other Functional Tests Performed Angelito Hallpike & log roll test negative; SeatedBP 146/96; standing 166/75; no nystagmus present during activity; able to bend over to don socks without dizziness M5 PT-IP Objective Assessments Start: 04/28/18 15:29 Freq: NEEDED Status: Active Protocol: Document 04/28/18 15:30 [facility] (Rec: 04/28/18 15:50 [facility] [id number]) Orientation Orientation/Cognition Level of Alertness Alert Strength Lower Extremity Strength Assessment Within Functional Limits Comments Strength Comments no difference between sides Muscle Tone Muscle Tone WNL No M7 PT-IP Assessment and Plan Start: 04/28/18 15:29 Freq: NEEDED Status: Active Protocol: Document 04/28/18 15:30 [facility] (Rec: 04/28/18 15:50 [facility] [id number]) PT Summary Assessment and Plan Potential Rehabilitation Potential Good Status of Condition at Evaluation Unstable Summary Impairments Balance Gait Activity Tolerance Goals Bed Mobility Goal Independent Transfer Goal Independent Gait Goal Independent Gait Distance 200ft w/o any signs of dizziness/LOB Days to Meet Goals 3 Frequency of Treatment Frequency Of Treatment Once a Day Treatment Plan Physical Therapy Treatment Plan Gait Training Therapeutic Exercise Balance Retraining Neuromuscular Re-ed Other Recommendations and Next Treatment Further vestibular assessment Focus Recommendations To Nursing Amount of Assist Needed Standby Assistance Discharge Recommendations PT Discharge Recommendations Home Visit Care Team Role Provider Type Jose A Morillo MD Family Provider Physician Primary Care Provider Eros Santos DO Emergency Provider Physician Roro Peñaloza DO Admit Provider Physician Attending Provider Current Diagnoses Type 2 diabetes mellitus without complications (04/28/18) Hyperlipidemia, unspecified (04/28/18) 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
[2018-04-28] MEDS: ATORVASTATIN 20 MG TABLET 80 MG PO (21:12)
--- NOTE | 2018-04-29 | DI.MRI.S_ITS ---
PROCEDURE: MR STROKE Pre- and post-contrast brain MRI, non-contrast brain MR angiogram, pre- and postcontrast neck MR angiogram INDICATIONS: dizziness, stroke TECHNIQUE: Brain: Noncontrast axial T1 spin echo, axial T2 fast spin echo, sagittal and axial FLAIR, coronal T2 fast spin echo, axial gradient echo, axial diffusion and ADC through the brain. After the administration of contrast, axial 3D VIBE of the cranial vasculature and brain. Brain MRA: Non-contrast 3-D time of flight MR angiogram, with multiple jwfjjiw-cihnvkqoo-zlntunqtto (MIP) reformats performed. Neck MRA: Axial and sagittal TruFISP through the neck. Coronal dynamic MR angiogram during administration of contrast in the arterial and venous phases, with 3-dimenstional utcrqns-wtqdgzvmi-jortgsjnyh (MIP) reformats constructed from subtraction images. COMPARISON: [facility], CT, CT ANGIO HEAD AND NECK, 04/28/2018, 4:02. [facility], CT, CT HEAD/BRAIN WO CON, 04/27/2018, 8:41. FINDINGS: Image quality: Excellent. BRAIN: The ventricular system and cortical sulci demonstrate atrophy, consistent for the patient's stated age. There are areas of increased T2/FLAIR signal intensity within the periventricular and subcortical white matter. There is no acute intra-or extra axial fluid collection. No acute hemorrhage, mass lesion or midline shift. Brainstem is unremarkable. There are no areas of restricted diffusion. Globes are symmetrical. Sinuses demonstrate small mucous retention cyst versus polyps in the maxillary sinuses bilaterally. Trace fluid is present within the left mastoid air cells. Osseous structures are intact. BRAIN MR ANGIOGRAM: The anterior circulation, including the anterior and middle cerebral arteries, as well as internal carotid arteries demonstrates no areas of hemodynamically significant stenosis, vascular occlusion or aneurysmal dilation. The posterior circulation demonstrates a left vertebral artery dominance. Basilar artery and posterior cerebral arteries demonstrate no areas of hemodynamically significant stenosis, vascular occlusion or aneurysmal dilation. Posterior communicating arteries are within normal limits. NECK MR ANGIOGRAM: The origins of the left and right common, internal and external carotid arteries demonstrate no areas of hemodynamically significant stenosis, vascular occlusion or aneurysmal dilation. The origin of the right vertebral artery is obscured secondary to motion. The left vertebral artery demonstrates approximate 40-50% stenosis, as noted on CTA of 04/28/18. Aortic arch demonstrates conventional anatomy. Limited, visualized portions subclavian vasculature are unremarkable. IMPRESSION: 1. 1. No acute intracranial process. 2. Mild to moderate atrophy and chronic microvascular ischemic changes. 3. No areas of hemodynamically significant stenosis, vascular occlusion or aneurysmal dilation within the anterior circulation. No change compared to CTA head and neck of 04/28/18. 4. No areas of hemodynamically significant stenosis, vascular occlusion or aneurysmal dilation within the posterior circulation. No change compared to CTA head and neck of 04/28/18. 5. No areas of hemodynamically significant stenosis, vascular occlusion or aneurysmal dilation within the neck vasculature. No change compared to CTA head and neck of 04/28/18. Dictated by: Marcy Stuart M.D. on 04/29/2018 at 11:48 Approved by: Marcy Stuart M.D. on 04/29/2018 at 12:03
[2018-04-29 05:17] VITALS: BP 141/84; PULSE 86; RESP 20; TEMP 36.6
[2018-04-29 08:00] VITALS: BP 157/96; PULSE 85; RESP 18; TEMP 36.3; O2SAT 99
[2018-04-29] MEDS: MULTIVIT,CALC,MINS/IRON/FOLIC 1 TABLET 1 TAB PO (08:48)
[2018-04-29] MEDS: glipiZIDE XL 5 MG TAB 10 MG PO (08:48)
[2018-04-29] MEDS: METFORMIN 850 MG TABLET PO (08:48)
[2018-04-29] MEDS: METOPROLOL ER 25 MG TABLET PO (08:48)
[2018-04-29] MEDS: ASPIRIN EC 81 MG TABLET PO (08:49)
--- NOTE | 2018-04-29 08:53 | PM.PN.1 ---
Subjective Date Patient Seen: 04/29/18 Time Patient Seen: 08:56 Interval history: The patient skelton slept well overnight and has had no further episodes of dizziness. Is aware of his elevated hemoglobin A1c. We discuss the type of diet that he used to keep his blood sugars under control last fall. This was a modified ketogenic diet. He has worked with Aleida montes nurse coordinator and has found that beneficial. He mentions that he did have some blurred vision as a side effect of 1 of his prior medications. He is unclear whether it was the losartan or 1 of the others. Exam Vital Signs (past 8 hours): Vital Signs - 8 hr 04/29/18 05:17 04/29/18 08:00 Temperature 97.9 F 97.4 F L Pulse Rate 86 85 Respiratory Rate 20 18 Blood Pressure 141/84 H 157/96 H Pulse Oximetry 99 Pulse Oximetry 99 Oxygen Delivery Method Room Air Narrative Exam Narrative: Objective: General: Well-developed, well-nourished, male, no acute distress. Heart: Regular rate and rhythm, no murmurs appreciated Lungs: Clear to auscultation bilaterally, no wheezes, rales or rhonchi Extremities: Warm and well perfused, no edema Objective Labs Labs: Laboratory Results - last 24 hr 04/28/18 04/28/18 Unknown Unknown Hemoglobin A1c 12.1 H Triglycerides 77 Cholesterol 203 H LDL Cholesterol, Calc 131 H HDL Cholesterol 57 Assessment & Plan (1) Stenosis of left vertebral artery: Current visit: Yes Status: Acute (2) Vertigo: Current visit: Yes Status: Acute (3) Coronary artery disease involving [place] coronary artery of [place] heart without angina pectoris: Current visit: Yes Status: Chronic (4) Hypertension: Qualifiers: Hypertension type: secondary to endocrine disorders Qualified Code(s): I15.2 - Hypertension secondary to endocrine disorders Current visit: Yes Status: Chronic (5) Hyperlipidemia: Current visit: Yes Status: Chronic (6) Type 2 diabetes mellitus without complication: Current visit: Yes Status: Chronic (7) Non compliance w medication regimen: Current visit: Yes Status: Acute Plan: Plan: 1. Unclear to me why MRI was not completed yesterday. Will order that for 1st thing this morning. 2. Uncontrolled diabetes. Will restart both of his medications metformin as well as glipizide. The glipizide had been stopped when he was well controlled last fall. 3. We will restart his metoprolol at 25 mg this morning. 4. Will arrange for him to work with nurse coordinator here going forward. 5. Will decrease his atorvastatin dose to 40 mg at bedtime given his lipid panel and possible medication side effects. Discussed with patient the importance of continuing on a statin. Will were carefully with him to adjust medications as well as dosage to maintain compliance. 6. He may continue the meclizine as needed. Quality Stroke Contraindication Not Initiating IV-Tpa: Not indicated VTE Deep Vein Thrombosis/Pulmonary Embolism Present on Admission: No
[2018-04-29 09:03] VITALS: PULSE 88
--- NOTE | 2018-04-29 09:03 | P.PN_ITS ---
Subjective Date Patient Seen: 04/29/18 Time Patient Seen: 08:56 Interval history: The patient skelton slept well overnight and has had no further episodes of dizziness. Is aware of his elevated hemoglobin A1c. We discuss the type of diet that he used to keep his blood sugars under control last fall. This was a modified ketogenic diet. He has worked with Aleida montes nurse coordinator and has found that beneficial. He mentions that he did have some blurred vision as a side effect of 1 of his prior medications. He is unclear whether it was the losartan or 1 of the others. Exam Vital Signs (past 8 hours): Vital Signs - 8 hr 3 04/29/18 05:17 04/29/18 08:00 Temperature 97.9 F 97.4 F L Pulse Rate 86 85 Respiratory Rate 20 18 Blood Pressure 141/84 H 157/96 H Pulse Oximetry 99 Pulse Oximetry 99 Oxygen Delivery Method Room Air Narrative Exam Narrative: Objective: General: Well-developed, well-nourished, male, no acute distress. Heart: Regular rate and rhythm, no murmurs appreciated Lungs: Clear to auscultation bilaterally, no wheezes, rales or rhonchi Extremities: Warm and well perfused, no edema Objective Labs Labs: Laboratory Results - last 24 hr 04/28/18 04/28/18 Unknown Unknown Hemoglobin A1c 12.1 H Triglycerides 77 Cholesterol 203 H LDL Cholesterol, Calc 131 H HDL Cholesterol 57 Assessment & Plan (1) Stenosis of left vertebral artery: Current visit: Yes Status: Acute (2) Vertigo: Current visit: Yes Status: Acute (3) Coronary artery disease involving [place] coronary artery of [place] heart without angina pectoris: Current visit: Yes Status: Chronic (4) Hypertension: Qualifiers: Hypertension type: secondary to endocrine disorders Qualified Code(s): I15.2 - Hypertension secondary to endocrine disorders Current visit: Yes Status: Chronic (5) Hyperlipidemia: Current visit: Yes Status: Chronic (6) Type 2 diabetes mellitus without complication: Current visit: Yes Status: Chronic (7) Non compliance w medication regimen: Current visit: Yes Status: Acute Plan: Plan: 1. Unclear to me why MRI was not completed yesterday. Will order that for 1st thing this morning. 2. Uncontrolled diabetes. Will restart both of his medications metformin as well as glipizide. The glipizide had been stopped when he was well controlled last fall. 3. We will restart his metoprolol at 25 mg this morning. 4. Will arrange for him to work with nurse coordinator here going forward. 5. Will decrease his atorvastatin dose to 40 mg at bedtime given his lipid panel and possible medication side effects. Discussed with patient the importance of continuing on a statin. Will were carefully with him to adjust medications as well as dosage to maintain compliance. 6. He may continue the meclizine as needed. Quality Stroke Contraindication Not Initiating IV-Tpa: Not indicated VTE Deep Vein Thrombosis/Pulmonary Embolism Present on Admission: No
--- NOTE | 2018-04-29 10:09 | OT.IP.TRT ---
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 (04/28/18) Occlusion and stenosis of left vertebral artery (04/28/18) Dizziness and giddiness (04/28/18) Patient's other noncompliance with medication regimen (04/28/18) Occupational Therapy Treatment Note M2 OT-IP Current Condition Start: 04/28/18 12:09 Freq: Status: Active Protocol: Document 04/28/18 12:09 [facility] (Rec: 04/28/18 12:31 [facility] [id number]) Occupational Therapy Current Condition Current Condition Evaluation Date 04/28/18 Treatment Diagnosis Dizziness, stenosis of left vetebral artery M3 OT- IP Subjective and Pain Start: 04/28/18 12:09 Freq: Status: Active Protocol: Document 04/29/18 09:52 [facility] (Rec: 04/29/18 10:08 [facility] [id number]) OT- Subjective Occupational Therapy Visit Type Type Treatment Note Visit Start Time 08:20 Visit Stop Time 09:05 Total Visit Minutes 45 OT Pain Assessment Pain When Pain Assessed At Rest Pain Present Pain Present Denied Pain M4 OT- IP ADL's Start: 04/28/18 12:09 Freq: Status: Active Protocol: Document 04/28/18 12:09 [facility] (Rec: 04/28/18 12:31 [facility] [id number]) OT ZOM-Lgyt-Rvumuse General Evaluation Self-Feeding Ability Independent OT ADL-Grooming General Evaluation Grooming Ability Independent Areas Needing Assistance Retrieving/Set-up of Grooming Items OT ADL-Oral Care General Eval Oral Care Ability Independent Areas of Assistance Retrieving/Set-Up of Items OT ADL-Dressing General Eval Upper Body Dressing Ability Independent Lower Body Dressing Ability Standby Assistance Areas Needing Assistance Retrieving/Set-up of Clothing Comments OT Dressing Comments SBA for LB dressing due to occasionally unsteady due to dizziness on his feet , especailly if standing up fast . OT ADL-Toileting General Evaluation Toileting Ability Independent M6 OT- IP Functional Cognition Start: 04/28/18 12:09 Freq: Status: Active Protocol: Document 04/29/18 09:52 [facility] (Rec: 04/29/18 10:08 [facility] [id number]) Cognitive Factors Limiting Selfcare Function Cognitive Ability Level of Alertness Alert Patient Orientation Name Age Birthday Month Date Year Day of Week Place Situation Attention Span Ability Capable of Focused Attention Capable of Sustained Attention Ability to Follow Commands Able to Follow One Step Commands Able to Follow Multi-Step Commands Memory Description Immediate Intact Short Term Impaired Safety Awareness Underestimates Need for Assistance Problem Solving Ability Needs Assist to Identify Solutions Executive Function Ability Unable to Remember Details Cognitive Tests MOCA Pt scored 25/30 and still having issues with short term memory issues and trouble ACL Pt continues to have a score of 4.4, not changed from yesterday. Main issues still short term memory and visuall spacial difficulties. Cognitive Comments Cognitive Assessment Comments educated on pt's pt's cognitive deficits at this time. M7 OT- IP Mobility and Balance Start: 04/28/18 12:09 Freq: Status: Active Protocol: Document 04/28/18 12:09 [facility] (Rec: 04/28/18 12:31 [facility] [id number]) OT- Bed Mobility Assessment Rolling Level of Assistance Independent Supine to Sit Supine to Sit Assist Independent Sit to Supine Sit to Supine Assist Independent Scooting Scooting to Edge of Bed Independent OT-Transfer Assessment Sit to and From Stand Sit to and from Stand Standby Assistance Transfers Transfer Ability Independent Standby Assistance Technique Transfer Destination Bed Toilet Devices Transfer Assistive Devices None Comments Mobility Comments SBA while picking things up from the floor and 360 degrees . OT- Balance Assessment Sitting Balance and Reactions Static Sitting Balance Ability Normal Dynamic Sitting Balance Ability Normal Standing Balance and Reactions Static Standing Balance Ability Normal Dynamic Standing Balance Ability Good M8 OT- IP Objective Assessments Start: 04/28/18 12:09 Freq: Status: Active Protocol: Document 04/28/18 12:09 [facility] (Rec: 04/28/18 12:31 [facility] [id number]) OT Gross Range of Motion Upper Extremity Range of Motion Assessment Within Functional Limits OT Strength Upper Extremity Strength Assessment Within Functional Limits M9 OT- IP Assessment and Plan Start: 04/28/18 12:09 Freq: Status: Active Protocol: Document 04/29/18 09:52 [facility] (Rec: 04/29/18 10:08 [facility] [id number]) OT Summary Assessment and Plan Potential Rehabilitation Potential Excellent Summary OT Impairments Balance Functional Cognition Progress Towards Goals Progressing Toward Goals Assessment Summary Continues to have short term memory issues and states dizziness better today. Goals Dressing Goal Independent Bathing Goal Independent Shower Transfer Goal Independent Patient/Caregiver Education Goal Demonstrate Energy Conservation and Pacing Caregiver Independent Assisting Patient OT-Other Goals Pt to have good understanding for memory needs, and to have good understanding to assist pt for all needs. Frequency of Treatment Frequency Of Treatment Once a Day Treatment Plan OT Treatment Plan Functional Cognition Training IADL Training Patient/Family Education Discharge Planning Discharge Recommendations OT Discharge Recommendations Home with Assistance
--- NOTE | 2018-04-29 10:32 | PT.IPTN ---
Current Diagnoses Type 2 diabetes mellitus without complications (04/28/18) Hyperlipidemia, unspecified (04/28/18) Hypertension secondary to endocrine disorders (04/28/18) Atherosclerotic heart disease of [place] coronary artery without angina pectoris (04/28/18) Occlusion and stenosis of left vertebral artery (04/28/18) Dizziness and giddiness (04/28/18) Patient's other noncompliance with medication regimen (04/28/18) Physical Therapy Treatment Note M2 PT-IP Current Condition Start: 04/28/18 15:29 Freq: NEEDED Status: Active Protocol: Document 04/29/18 10:26 [facility] (Rec: 04/29/18 10:31 [facility] [id number]) Physical Therapy Current Condition Current Condition Evaluation Date 04/28/18 Treatment Diagnosis vertigo, dizziness M3 PT-IP Subjective Start: 04/28/18 15:29 Freq: NEEDED Status: Active Protocol: Document 04/29/18 10:26 [facility] (Rec: 04/29/18 10:31 [facility] [email or web address]) Subjective Physical Therapy Visit Type Type Treatment Note Visit Start Time 10:07 Visit Stop Time 10:20 Total Visit Minutes 13 Notes pt in BR on arrival, in room. Number of HADOOP ADMINISTRATOR Visits 0 Physical Therapy Visit Comments Patient Comments Pt reports dizziness is better today. He does admit to 2/10 dizziness with walking with lateral/horizontal head turns. M4 PT-IP Mobility and Gait Start: 04/28/18 15:29 Freq: NEEDED Status: Active Protocol: Document 04/29/18 10:26 [facility] (Rec: 04/29/18 10:31 [facility] [email or web address]) PT-Bed Mobility Assessment Sit to Supine Sit to Supine Independent Scooting Scooting to Edge of Bed Independent PT-Transfer Assessment Sit to and From Stand Sit to and from Stand Independent Equipment Transfer Assistive Device Gait Belt Transfers Transfer Destination Bed Transfer Technique Stand Step Pivot Transfer Ability Level of Assist Independent Gait Assessment Gait Gait Assistance Required: Standby Assistance Distance (Feet) (feet) 300 Assistive Devices Assistive Device Gait Belt Comments Gait Comments Mild increase in lateral sway with gait during horizontal head turns, no loss of balance of UE assistance required. Pt rated dizziness 2/10 with horizontal head turns, 0/10 vertical head turns. PT-Balance Assessment Sitting Balance and Reactions Static Sitting Balance Ability Normal Dynamic Sitting Balance Ability Normal Standing Balance and Reactions Static Standing Balance Ability Good Dynamic Standing Balance Ability Fair Comments Other Balance Tests/Deviations/Treatment SL balance 4 sec each LE : Tandem standing- L posterior 15 sec, R posterior 7 sec. M6 PT-IP Treatment Start: 04/28/18 15:29 Freq: NEEDED Status: Active Protocol: Document 04/29/18 10:26 [facility] (Rec: 04/29/18 10:31 [facility] [email or web address]) Physical Therapy Treatment Education Education Provided Safety M7 PT-IP Assessment and Plan Start: 04/28/18 15:29 Freq: NEEDED Status: Active Protocol: Document 04/29/18 10:26 [facility] (Rec: 04/29/18 10:31 [facility] [id number]) PT Summary Assessment and Plan Summary Impairments Balance Progress Towards Goals Progressing Toward Goals Assessment Summary Pt with c/o 2/10 dizziness with horizontal head turns while ambulating, and mild increased lateral sway but no loss of balance. Pt did not use an assistive device during gait, and balance subsided after ambulation with normal head/eye positioning. Pt's static balance also impaired for his age, and may not yet be back to his prior level. MRI to be performed this a.m. Goals Bed Mobility Goal Independent Transfer Goal Independent Gait Goal Independent Gait Distance 200ft w/o any signs of dizziness/LOB Days to Meet Goals 3 Frequency of Treatment Frequency Of Treatment Once a Day Treatment Plan Physical Therapy Treatment Plan Gait Training Therapeutic Exercise Balance Retraining Neuromuscular Re-ed Other Recommendations and Next Treatment Further vestibular assessment Focus Recommendations To Nursing Amount of Assist Needed Standby Assistance Discharge Recommendations PT Discharge Recommendations Home Outpatient PT
[2018-04-29 15:23] VITALS: BP 148/75; PULSE 92; RESP 18; TEMP 35.9; O2SAT 98
--- NOTE | 2018-04-29 16:03 | P.DS_ITS ---
History of Present Illness Chief complaint: Vertigo/ Stenosis of the left Vetebral Artery Narrative: Chief complaint: Vertigo/ Stenosis of the left Vetebral Artery Narrative: Tanner Ordonez is a 57 year old male with history of coronary artery disease with stent placement in 2001, hypertension, diabetes, hyperlipidemia who presented twice to the emergency department in the last 24 hr for dizziness. During his 1st visit he was diagnosed with BPPV which responded miraculously to meclizine. His 2nd episode of dizziness started at 1: 00 a.m. while he was lying in bed. He became nauseous and diaphoretic. When he sat up he became dizzy. He was not able to walk unaided at this time. He does report an episode of vomiting as well. A CT angio of his head showed a 50 % left vertebral artery blockage. He tells me he has not been taking his aspirin, atorvastatin, metoprolol, or diabetic medications. He tells me that things were under control and he and Dr. Morillo were reducing these medications. Discharge Providers Date of admission: 04/28/18 06:23 Primary care physician: Was Jose A Morillo MD, now Roro Peñaloza DO Consults: 04/28/18 08:24 Consult to Dietitian, Adult Routine Comment: Reason For Exam: diabetes Consult to Discharge Planning Routine Comment: Consult to Occupational Therapy Evaluate & Treat Comment: Physician Instructions: Evaluate and treat Consult to Physical Therapy Evaluate & Treat Comment: Physician Instructions: Evaluate and Treat Consult to Speech Therapy Evaluate & Treat Comment: Physician Instructions: Evaluate and treat 04/29/18 14:42 Consult to Speech Therapy Evaluate & Treat Comment: cognitive eval Physician Instructions: Evaluate and treat Discharge provider: Roro Peñaloza DO Summary Discharge Diagnosis: 1. Transient ischemic attack 2. Stenosis of the left vertebral artery 3. Vertigo 4. Coronary artery disease with history of stent placement 5. Hypertension 6. Hyperlipidemia 7. Uncontrolled type 2 diabetes mellitus 8. Medication noncompliance 9. Mild cognitive impairment Hospital Course: 1. Transient ischemic attack. - no focal evidence ischemia on MRI just evidence of chronic microvascular disease - symptoms have improved - was not taking any antiplatelet agents on admission - restart 81 mg aspirin daily for further prophylaxis 2. Stenosis of the left vertebral artery - less than 40-50% - risk factor modification 3. Vertigo - resolved, no vestibular dysfunction per exam - outpatient physicial therapy to follow 4. Coronary artery disease with history of stent placement - Needs to revisit cardiology - risk factor modification with beta uche, aspirin, statin and blood glucose control 5. Hypertension - restart metoprolol and monitor going forward 6. Hyperlipidemia - restarted his atorvastatin at 40 mg nightly, given his reasonable lipid profile without statins 7. Uncontrolled type 2 diabetes mellitus - restart medications, understands appropriate diet and has been able to control his glucose before - restart working with nurse coordinator 8. Medication noncompliance - likely secondary to development of symptoms, stressed importance of discussing with provider to get optimum, tolerable regimen 9. Mild cognitive impairment - unclear baseline - continue with speech therapy as outpatient. Status at Discharge Cognitive/behavioral status at discharge: Mild cognitive impairment Functional status at discharge: independent ambulation Overall status at discharge: patient is progressing back to baseline Time Spent with Patient Greater than 30 minutes Exam Vital Signs (past 8 hours): Vital Signs - 8 hr 3 04/29/18 09:03 04/29/18 15:23 Temperature 96.7 F L Pulse Rate 88 92 H Respiratory Rate 18 Blood Pressure 148/75 H Pulse Oximetry 98 Pulse Oximetry 98 Oxygen Delivery Method Room Air Narrative Exam Narrative: Objective: General: Well-developed, well-nourished, male, no acute distress. Heart: Regular rate and rhythm, no murmurs appreciated Lungs: Clear to auscultation bilaterally, no wheezes, rales or rhonchi Extremities: Warm and well perfused, no edema Objective Imaging MRI - head: Radiologist's impression: IMPRESSION: 1. 1. No acute intracranial process. 2. Mild to moderate atrophy and chronic microvascular ischemic changes. 3. No areas of hemodynamically significant stenosis, vascular occlusion or aneurysmal dilation within the anterior circulation. No change compared to CTA head and neck of 04/28/18. 4. No areas of hemodynamically significant stenosis, vascular occlusion or aneurysmal dilation within the posterior circulation. No change compared to CTA head and neck of 04/28/18. 5. No areas of hemodynamically significant stenosis, vascular occlusion or aneurysmal dilation within the neck vasculature. No change compared to CTA head and neck of 04/28/18. CT scan - head: Radiologist's impression: IMPRESSION: Mild carotid atherosclerosis. No focal ICA stenosis or occlusion. Scattered vertebral artery calcifications bilaterally with focal 40-50% left vertebral artery stenosis as above. Discharge Plan Discharge Plan Patient Disposition: Home, Self-Care Discharge comment: Outpatient physical therapy, speech therapy. Follow up in clinic in two weeks. Continue to work with nurse coordinator. Provider Discharge Instructions Diet: Carb-consistent/Diabetic Discharge Data Primary Care Provider: Jose A Morillo Attending Provider: Roro Peñaloza Admit Date/Time: 04/28/18 06:23 Discharges patient from system. Discharge Date/Time: 04/29/18 16:32 Quality Stroke Contraindication Not Initiating IV-Tpa: Not indicated VTE Deep Vein Thrombosis/Pulmonary Embolism Present on Admission: No
--- NOTE | 2018-04-29 16:59 | PT.IPRE ---
Current Diagnoses Type 2 diabetes mellitus without complications (04/28/18) Hyperlipidemia, unspecified (04/28/18) Hypertension secondary to endocrine disorders (04/28/18) Atherosclerotic heart disease of [place] coronary artery without angina pectoris (04/28/18) Occlusion and stenosis of left vertebral artery (04/28/18) Dizziness and giddiness (04/28/18) Patient's other noncompliance with medication regimen (04/28/18) Medical History (Last Reviewed 04/28/18 @ 09:12 by Radhika Monsivais, PT) Stenosis of left vertebral artery (Acute) Vertigo (Acute) Coronary artery disease involving [place] coronary artery of [place] heart without angina pectoris (Chronic 11/11/16) Hypertension (Chronic) Hyperlipidemia (Chronic 11/11/16) Type 2 diabetes mellitus without complication (Chronic 11/11/16) Coronary artery disease (Acute) Diabetes (Acute) Physical Therapy Inpatient Evaluation/Re-Eval M1 PT/OT-IP Prior Functional Status Start: 04/28/18 12:09 Freq: NEEDED Status: Discharge Protocol: Document 04/28/18 15:30 [facility] (Rec: 04/28/18 15:50 [facility] [id number]) Medical Review Prior Functional Status Diet/Fluid Consistency Regular Mobility and Gait Amb without AD; 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 ; 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 Social History Household Members spouse family Living Arrangements House Number of Floors (Floors) Two Floors Employment Status Can Worker Employed M2 PT-IP Current Condition Start: 04/28/18 15:29 Freq: NEEDED Status: Discharge Protocol: Document 04/29/18 13:50 [facility] (Rec: 04/29/18 16:59 DC[facility] [id number]) Physical Therapy Current Condition Current Condition Evaluation Date 04/28/18 Treatment Diagnosis vertigo, dizziness M3 PT-IP Subjective Start: 04/28/18 15:29 Freq: NEEDED Status: Discharge Protocol: Document 04/29/18 13:50 [facility] (Rec: 04/29/18 16:59 [facility] [id number]) Subjective Physical Therapy Visit Type Type Re-Evaluation Visit Start Time 13:50 Visit Stop Time 15:00 Total Visit Minutes 25 Notes Performed requested Vestibular Assessment Number of CD REACTOR OPERATOR Visits 0 M4 PT-IP Mobility and Gait Start: 04/28/18 15:29 Freq: NEEDED Status: Discharge Protocol: Document 04/29/18 10:26 [facility] (Rec: 04/29/18 10:31 [facility] [email or web address]) PT-Bed Mobility Assessment Sit to Supine Sit to Supine Independent Scooting Scooting to Edge of Bed Independent PT-Transfer Assessment Sit to and From Stand Sit to and from Stand Independent Equipment Transfer Assistive Device Gait Belt Transfers Transfer Destination Bed Transfer Technique Stand Step Pivot Transfer Ability Level of Assist Independent Gait Assessment Gait Gait Assistance Required: Standby Assistance Distance (Feet) (feet) 300 Assistive Devices Assistive Device Gait Belt Comments Gait Comments Mild increase in lateral sway with gait during horizontal head turns, no loss of balance of UE assistance required. Pt rated dizziness 2/10 with horizontal head turns, 0/10 vertical head turns. PT-Balance Assessment Sitting Balance and Reactions Static Sitting Balance Ability Normal Dynamic Sitting Balance Ability Normal Standing Balance and Reactions Static Standing Balance Ability Good Dynamic Standing Balance Ability Fair Comments Other Balance Tests/Deviations/Treatment SL balance 4 sec each LE : Tandem standing- L posterior 15 sec, R posterior 7 sec. M5 PT-IP Objective Assessments Start: 04/28/18 15:29 Freq: NEEDED Status: Discharge Protocol: Document 04/29/18 13:50 [facility] (Rec: 04/29/18 16:59 DCW [id number]) Orientation Orientation/Cognition Level of Alertness Alert Orientation Name Date Place Situation M6 PT-IP Treatment Start: 04/28/18 15:29 Freq: NEEDED Status: Discharge Protocol: Document 04/29/18 13:50 [facility] (Rec: 04/29/18 16:59 DC[facility] [id number]) Physical Therapy Treatment Other Treatments Other Treatment Performed [place] Test:Negative. Rinne test:Air Conduction > Bone Conduction. [place] Air Conduction R=L Thrust Test: Negative. Heave Test:Negative. Gaze Nystagmus: Negative with and without fixation Smooth Pursuit: Mild horizontal Saccades Saccade Test: Negative [place]: Negative Biolaterally Roll Test: Negative Biolaterally M7 PT-IP Assessment and Plan Start: 04/28/18 15:29 Freq: NEEDED Status: Discharge Protocol: Document 04/29/18 13:50 [facility] (Rec: 04/29/18 16:59 DC[facility] [id number]) PT Summary Assessment and Plan Summary Assessment Summary Pt vestibular examination was largely negative, with no indications of peripheral or central cause for vertigo. Pt did have a single positive test, showing mild saccadic movements occasionally during smooth pursuit, however with no other positive tests, a history of left-sided cataract , and a recent clean MRI, this is unlikely related to any of his current complaints. Discharge Recommendations PT Discharge Recommendations Home Other Discharge Recommendations Pt likely to be discharged home this evening Provider Visit Care Team Role Provider Type Jose A Morillo MD Family Provider Physician Primary Care Provider Specialty: Family Practice Eros Santos DO Emergency Provider Physician Specialty: Emergency Medicine Roro Peñaloza DO Admit Provider Physician Attending Provider Specialty: Family Practice
== END 2018-04-29 16:32 | disposition home or self-care (01) ==
LOC: ED 06:09 → AC 06:25
PROVIDERS: Admitting Provider Family Medicine; Emergency Provider Emergency Medicine; Family Provider Family Medicine; PCP Family Medicine; Visit Provider Family Medicine
DX: I65.02 Occlusion and stenosis of left vertebral artery (principal); Z91.14 Patient's other noncompliance with medication regimen; I15.2 Hypertension secondary to endocrine disorders; I25.10 Atherosclerotic heart disease of native coronary artery without angina pectoris; E78.5 Hyperlipidemia, unspecified; E11.9 Type 2 diabetes mellitus without complications; R42 Dizziness and giddiness
CPT/HCPCS: 70496; 70498; 70553; 80061; 82962; 83036; 92610; 93306; 97116; 97127; 97163; 97164; 97165; 97530; 97535; 99217; 99220; 99283; 99284; G0378; Q9967

== ENCOUNTER 2018-07-21 12:07 | Emergency (ER) | payer OTHER, SELFPAY ==
[2018-04-28 08:25] VITALS: BMI 28.3
[2018-07-21 12:10] VITALS: BP 154/84; PULSE 78; RESP 19; TEMP 36.4; O2SAT 100; BMI 29.1
--- NOTE | 2018-07-21 13:03 | ED.DIZZY ---
HPI - Dizziness General Chief Complaint: Dizziness Stated Complaint: dizziness and vertigo Time Seen by Provider: 07/21/18 12:29 Source: patient Mode of arrival: ambulatory Limitations: no limitations History of Present Illness HPI Narrative: 57-year-old male with a history of vertigo been evaluated in this emergency department in the past for this. He states that during that evaluation he was admitted to the hospital and had CT scans and MRIs for evaluation. He states that they all came back ?negative ?he has seen his primary doctor. He has meclizine at home. States that over the past couple days he has had vertigo when he ever he tilts his head back it turns his head to the left. No fevers. When he is looking straight ahead his symptoms are not there. No ringing in his ears. No numbness or tingling in his arms and legs. Related Data Home Medications Medication Instructions Recorded Confirmed multivitamin with minerals 1 tab PO DAILY 04/28/18 07/21/18 apple cider vinegar 1 tab PO DIRECTED 05/21/18 07/21/18 turmeric root extract 1 dose PO DIRECTED 05/21/18 07/21/18 aspirin 1 tab PO DAILY 07/21/18 07/21/18 sildenafil (antihypertensive) 1 - 5 tab PO PRN PRN 07/21/18 07/21/18 Previous Rx's Medication Instructions Recorded atorvastatin 80 mg tablet 80 mg PO HS #90 tab 04/30/18 meclizine 25 mg chewable tablet 25 mg PO TID PRN #20 tab 04/30/18 blood sugar diagnostic strips #100 each 05/21/18 losartan 50 mg tablet 50 mg PO DAILY #90 tab 05/21/18 glipizide ER 10 mg tablet, 10 mg PO Q DAY #90 tab 06/04/18 extended release 24 hr metformin 850 mg tablet 850 mg PO BIDCC #180 tab 06/04/18 metoprolol succinate ER 25 mg 25 mg PO QDAY #90 tab 06/04/18 tablet,extended release 24 hr diazepam [Valium] 5 mg PO BID-TID PRN #7 tab 07/21/18 ondansetron [Zofran ODT] 4 mg PO BID-TID PRN #10 tab 07/21/18 Allergies Allergy/AdvReac Type Severity Reaction Status Date / Time No Known Drug Allergies Allergy Verified 07/21/18 12:10 Review of Systems Constitutional Denies chills, Denies fever(s) and Denies headache(s) ENT Ears, Nose, Mouth, and Throat: Reports vertigo, Reports dizziness, Denies headache(s), Denies hearing loss and Denies sore throat Cardiovascular Denies chest pain, Denies irregular heart rhythm, Denies palpitations and Denies dyspnea Respiratory Denies dyspnea Gastrointestinal Gastrointestinal: Denies abdominal pain, Denies constipation, Denies diarrhea, Reports nausea and Reports vomiting Genitourinary Denies dysuria Musculoskeletal Denies myalgias and Denies arthralgias Integumentary/Breasts Denies lesions and Denies rash Neurologic Reports vertigo, Reports dizziness and Denies headache(s) Endocrine Denies palpitations Hematologic/Lymphatic Denies easy bleeding and Denies easy bruising REPLACED BY [facility] Medical History Stenosis of left vertebral artery (Chronic) Vertigo (Chronic) Coronary artery disease involving [place] coronary artery of [place] heart without angina pectoris (Chronic 11/11/16) Hypertension (Chronic) Hyperlipidemia (Chronic 11/11/16) Type 2 diabetes mellitus without complication (Chronic 11/11/16) Asbestosis (Chronic) Cataract (Chronic ~2009) Chronic back pain (Chronic ~2000) Coronary artery disease (Chronic) Diabetes (Chronic) Hearing loss (Chronic ~1999) Heart attack (Resolved ~2001) Surgical History History of cataract surgery (Resolved) Surgical procedure planned (Resolved ~2001) Anesthesia (Inactive) Family History Mother Diabetes mellitus Father No problems noted. Social History household members: spouse and family Smoking Status: Never smoker alcohol intake: former Exam Initial Vital Signs Initial Vital Signs: Vital Signs Temperature 97.6 F 07/21/18 12:10 Pulse Rate 78 07/21/18 12:10 Respiratory Rate 19 07/21/18 12:10 Blood Pressure 154/84 H 07/21/18 12:10 Pulse Oximetry 100 07/21/18 12:10 Const General: cooperative, healthy appearing, comfortable, well developed, well groomed and No acute distress Orientation: alert, awake and oriented x3 HENMT Head: normal to inspection and normocephalic Nose: external nose normal Face and sinus: normal facial exam Mouth: oral mucosae normal Eyes Pupils: PERRL EOM: EOM intact bilaterally Resp Effort & Inspection: normal respiratory effort Auscultation: clear to auscultation bilaterally Cardio Rate: regular rate Rhythm: regular rhythm Skin Lesions: no lesions Rashes: no rashes Neuro General: alert, awake and oriented x3 Cranial Nerves: CN's II-XI intact bilaterally Cognition: normal cognition Speech: speech normal Gait: normal gait Motor: muscle tone normal throughout Sensory Exam: no sensory deficits noted Extrem General: normal to inspection and capillary refill normal Psych Appearance: grossly normal and well kempt Course Orders Ordered: Discontinued Medications Ondansetron HCl (Zofran Odt) 4 mg PO NOW ONE Stop: 07/21/18 13:34 Last Admin: 07/21/18 13:52 Dose: 4 mg Vital Signs - 8 hr 07/21/18 12:10 07/21/18 13:32 Temperature 97.6 F Pulse Rate 78 79 Respiratory Rate 19 18 Blood Pressure 154/84 H Blood Pressure [Left Arm] 151/79 H Pulse Oximetry 100 98 MDM - Dizziness MDM Narrative Medical decision making narrative: Patient with known peripheral vertigo. Has meclizine at home which she states is only minimally helping his symptoms. Has a normal neurologic exam. His vertigo is positional in can be reproduced with turning his head to the left. Discussed this with the patient. Will hold on further workup for now. Will send home with a prescription for Valium that he can take in the evening. Informed him that this medicine will make him drowsy. Also gave him a prescription for Valium. Informed him that he should talk with his primary doctor regarding the indications for referral to see ear nose and throat. Patient was given return precautions. He expressed understanding and agreement with plan. Discharge Plan Departure Patient Disposition: Home Clinical Impression: Vertigo Discharge Date/Time: 07/21/18 14:14 Interventions: ED Discharge Assessment Last Done: 07/21/18 14:13 Instructions: Vertigo (Alternative Therapy), DI for Vertigo Activity Restrictions/Additional Instructions: Call your primary care doctor for a follow-up and to discuss the indications to see nuclear plant technical advisor. Continue your medication like we discussed. Return to the emergency department for any new or worsening symptoms Prescriptions: New ondansetron [Zofran ODT] 4 mg tablet,disintegrating 4 mg PO BID-TID PRN (Reason: nausea and vomiting) Qty: 10 RF: 0 diazepam [Valium] 5 mg tablet 5 mg PO BID-TID PRN (Reason: vertigo) Qty: 7 RF: 0 No Action atorvastatin 80 mg tablet 80 mg PO HS Qty: 90 RF: 0 meclizine 25 mg tablet,chewable 25 mg PO TID PRN (Reason: dizziness) Qty: 20 RF: 0 metoprolol succinate [Toprol XL] 25 mg tablet extended release 24 hr 25 mg PO QDAY Qty: 90 RF: 0 glipizide 10 mg tablet extended release 24hr 10 mg PO Q DAY Qty: 90 RF: 0 metformin 850 mg tablet 850 mg PO BIDCC Qty: 180 RF: 0 apple cider vinegar 1 tab PO DIRECTED RF: 0 turmeric root extract 1 dose PO DIRECTED RF: 0 losartan 50 mg tablet 50 mg PO DAILY Qty: 90 RF: 1 blood sugar diagnostic [Blood Glucose Test] strip .ROUTE .MEDSUPPLY Qty: 100 RF: 8 multivitamin with minerals Tablet 1 tab PO DAILY RF: 0 aspirin 81 mg tablet,delayed release (DR/EC) 1 tab PO DAILY RF: 0 sildenafil (antihypertensive) 20 mg tablet 1 - 5 tab PO PRN PRN (Reason: Sexual Activity) RF: 0
[2018-07-21 13:32] VITALS: BP 151/79; PULSE 79; RESP 18; O2SAT 98
[2018-07-21] MEDS: ONDANSETRON 4 MG ODT PO (13:52)
== END 2018-07-21 14:14 | disposition home or self-care (01) ==
PROVIDERS: Emergency Provider Emergency Medicine; Family Provider Family Medicine; PCP Family Medicine
DX: R42 Dizziness and giddiness (principal)
CPT/HCPCS: 82962; 93005; 93010; 99282; 99284

== ENCOUNTER 2018-07-23 12:36 | Emergency (ER) | payer OTHER, SELFPAY ==
[2018-07-22 09:13] VITALS: BMI 28.3
[2018-07-23 12:39] VITALS: BP 169/86; PULSE 90; RESP 16; TEMP 36.4; O2SAT 100; BMI 28.9
--- NOTE | 2018-07-23 12:43 | ED.DIZZY ---
HPI - Dizziness General Chief Complaint: Dizziness Stated Complaint: DIZZY, NAUSEA Time Seen by Provider: 07/23/18 12:43 Source: patient Mode of arrival: ambulatory Limitations: no limitations History of Present Illness HPI Narrative: 57-year-old male who I evaluated here in the emergency department couple days ago for vertigo. I diagnosed him with positional vertigo. He was sent home with Zofran and Valium. He states that his symptoms were improving. He was at his primary doctor today for a follow-up when his provider did what sounds like a Angelito-Hallpike procedure which made the vertigo return. They sent him to the emergency department for treatment. Patient reports that today he is continuing to have the symptoms when he looks up. The symptoms that he was having when he looked to the left during his prior visit have improved. He has talked with his primary doctor about a consult to see physical therapy and also to ENT. He reports no other new symptoms. Related Data Home Medications Medication Instructions Recorded Confirmed multivitamin with minerals 1 tab PO DAILY 04/28/18 07/22/18 apple cider vinegar 1 tab PO DIRECTED 05/21/18 07/22/18 turmeric root extract 1 dose PO DIRECTED 05/21/18 07/22/18 aspirin 1 tab PO DAILY 07/21/18 07/22/18 sildenafil (antihypertensive) 1 - 5 tab PO PRN PRN 07/21/18 07/22/18 Previous Rx's Medication Instructions Recorded atorvastatin 80 mg tablet 80 mg PO HS #90 tab 04/30/18 meclizine 25 mg chewable tablet 25 mg PO TID PRN #20 tab 04/30/18 blood sugar diagnostic strips #100 each 05/21/18 losartan 50 mg tablet 50 mg PO DAILY #90 tab 05/21/18 glipizide ER 10 mg tablet, 10 mg PO Q DAY #90 tab 06/04/18 extended release 24 hr metformin 850 mg tablet 850 mg PO BIDCC #180 tab 06/04/18 metoprolol succinate ER 25 mg 25 mg PO QDAY #90 tab 06/04/18 tablet,extended release 24 hr diazepam [Valium] 5 mg PO BID-TID PRN #7 tab 07/21/18 ondansetron [Zofran ODT] 4 mg PO BID-TID PRN #10 tab 07/21/18 ondansetron [Zofran ODT] 4 mg PO BID-TID PRN #10 tab 07/23/18 Allergies Allergy/AdvReac Type Severity Reaction Status Date / Time No Known Drug Allergies Allergy Verified 07/23/18 12:39 Review of Systems Constitutional Denies frequent falls and Denies headache(s) Eyes Denies blurry vision and Denies diplopia ENT Ears, Nose, Mouth, and Throat: Reports vertigo, Reports dizziness and Denies headache(s) Cardiovascular Denies chest pain, Denies syncope and Denies dyspnea Respiratory Denies dyspnea Gastrointestinal Gastrointestinal: Denies abdominal pain, Denies change in stool character, Reports nausea and Reports vomiting Genitourinary Denies dysuria Musculoskeletal Denies myalgias and Denies arthralgias Integumentary/Breasts Denies lesions and Denies rash Neurologic Denies confusion, Reports vertigo, Reports dizziness, Denies syncope, Denies frequent falls, Denies headache(s) and Denies focal weakness Psychiatric Denies confusion Hematologic/Lymphatic Denies easy bleeding and Denies easy bruising [facility] Medical History Stenosis of left vertebral artery (Chronic) Vertigo (Chronic) Coronary artery disease involving ho-chunk coronary artery of ho-chunk heart without angina pectoris (Chronic 11/11/16) Hypertension (Chronic) Hyperlipidemia (Chronic 11/11/16) Type 2 diabetes mellitus without complication (Chronic 11/11/16) Asbestosis (Chronic) Cataract (Chronic ~2009) Chronic back pain (Chronic ~2000) Coronary artery disease (Chronic) Diabetes (Chronic) Hearing loss (Chronic ~1999) Heart attack (Resolved ~2001) Surgical History History of cataract surgery (Resolved) Surgical procedure planned (Resolved ~2001) Anesthesia (Inactive) Family History Mother Diabetes mellitus Father No problems noted. Social History household members: spouse and family Smoking Status: Never smoker alcohol intake: former Exam Initial Vital Signs Initial Vital Signs: Vital Signs Temperature 97.6 F 07/23/18 12:39 Pulse Rate 90 07/23/18 12:39 Respiratory Rate 16 07/23/18 12:39 Blood Pressure 169/86 H 07/23/18 12:39 Pulse Oximetry 100 07/23/18 12:39 Const General: cooperative, healthy appearing, comfortable, well developed, well groomed, acute distress and No in distress Orientation: alert, awake and oriented x3 HENMT Head: normal to inspection, normocephalic and atraumatic Resp Effort & Inspection: normal respiratory effort Skin Lesions: no lesions Rashes: no rashes Neuro General: alert, awake and oriented x3 Cognition: normal cognition Speech: speech normal Gait: normal gait Motor: muscle tone normal throughout Sensory Exam: no sensory deficits noted Extrem General: normal to inspection and capillary refill normal Psych Appearance: grossly normal and well kempt Course Orders Ordered: Discontinued Medications Diazepam (Valium) 5 mg PO NOW ONE Stop: 07/23/18 12:44 Last Admin: 07/23/18 13:01 Dose: 5 mg Ondansetron HCl (Zofran Odt) 4 mg PO NOW ONE Stop: 07/23/18 12:44 Last Admin: 07/23/18 13:01 Dose: 4 mg Vital Signs - 8 hr 07/23/18 12:39 07/23/18 13:44 07/23/18 14:29 Temperature 97.6 F Pulse Rate 90 82 88 Respiratory Rate 16 12 20 Blood Pressure 169/86 H Blood Pressure [Right Arm] 161/82 H 156/93 H Pulse Oximetry 100 98 100 [facility] - Dizziness Medical Records Attestation: I reviewed the patient's medical records. ECG Data Attestation: I personally reviewed and interpreted this ECG as follows: Prior ECG tracings: not available for review Interpretation: Sinus rhythm Ventricular rate in 90 Normal axis Normal QRS Normal QTC Nonspecific ST T wave changes [facility] Narrative Medical decision making narrative: Patient reported improvement after the Valium and Zofran here in the emergency department. He stated that he felt well enough to go home. He does have a prescription for the Valium at home. He states he does not think he has a prescription for Zofran. I will give him 1 today. He states that he has discussed with his primary doctor the consultation to see [facility] and also physical therapy. Will provide him with a work note stating that he cannot drive until his symptoms have resolved. He was given return precautions. He expressed understanding and agreement with plan. Discharge Plan Departure Patient Disposition: Home Clinical Impression: Vertigo Instructions: Vertigo (Alternative Therapy), DI for Vertigo Activity Restrictions/Additional Instructions: Call your primary care doctor to discuss the follow up with the [facility] Th[facility] doctors and also physical therapy. Take all of your medications as instructed. Return to the emergency department for any new or worsening symptoms. Prescriptions: New ondansetron [Zofran ODT] 4 mg tablet,disintegrating 4 mg PO BID-TID PRN (Reason: nausea and vomiting) Qty: 10 RF: 0 No Action atorvastatin 80 mg tablet 80 mg PO HS Qty: 90 RF: 0 meclizine 25 mg tablet,chewable 25 mg PO TID PRN (Reason: dizziness) Qty: 20 RF: 0 metoprolol succinate [Toprol XL] 25 mg tablet extended release 24 hr 25 mg PO QDAY Qty: 90 RF: 0 glipizide 10 mg tablet extended release 24hr 10 mg PO Q DAY Qty: 90 RF: 0 metformin 850 mg tablet 850 mg PO BIDCC Qty: 180 RF: 0 apple cider vinegar 1 tab PO DIRECTED RF: 0 turmeric root extract 1 dose PO DIRECTED RF: 0 losartan 50 mg tablet 50 mg PO DAILY Qty: 90 RF: 1 blood sugar diagnostic [Blood Glucose Test] strip .ROUTE .MEDSUPPLY Qty: 100 RF: 8 multivitamin with minerals Tablet 1 tab PO DAILY RF: 0 aspirin 81 mg tablet,delayed release (DR/EC) 1 tab PO DAILY RF: 0 sildenafil (antihypertensive) 20 mg tablet 1 - 5 tab PO PRN PRN (Reason: Sexual Activity) RF: 0 ondansetron [Zofran ODT] 4 mg tablet,disintegrating 4 mg PO BID-TID PRN (Reason: nausea and vomiting) Qty: 10 RF: 0 diazepam [Valium] 5 mg tablet 5 mg PO BID-TID PRN (Reason: vertigo) Qty: 7 RF: 0 Stand Alone Forms: Work/School Restrictions
[2018-07-23] MEDS: diazePAM 5 MG TABLET PO (13:01)
[2018-07-23] MEDS: ONDANSETRON 4 MG ODT PO (13:01)
[2018-07-23 13:44] VITALS: BP 161/82; PULSE 82; RESP 12; O2SAT 98
[2018-07-23 14:29] VITALS: BP 156/93; PULSE 88; RESP 20; O2SAT 100
== END 2018-07-23 19:03 | disposition home or self-care (01) ==
PROVIDERS: Emergency Provider Emergency Medicine; Family Provider Family Medicine; PCP Family Medicine
DX: R42 Dizziness and giddiness (principal)
CPT/HCPCS: 93005; 93010; 99283

== ENCOUNTER 2018-07-26 17:30 | Emergency (ER) | payer OTHER, SELFPAY ==
[2018-07-22 09:13] VITALS: BMI 28.3
[2018-07-26 17:38] VITALS: BP 151/80; PULSE 81; RESP 14; O2SAT 100
[2018-07-26 17:42] VITALS: TEMP 36.4
--- NOTE | 2018-07-26 17:55 | ED_ITS ---
HPI - Dizziness <Meme Pate PA-C - Last Filed: 07/26/18 21:37> General Chief Complaint: Dizziness Stated Complaint: VERTIGO, POSSIBLE MED REACTION Time Seen by Provider: 07/26/18 17:54 Source: patient Mode of arrival: ambulatory Limitations: no limitations History of Present Illness HPI Narrative: This 57-year-old gentleman returns to the ED due to nausea and ? warm sensation? in his stomach for the last 2 weeks. He states that he had several episodes of vomiting today and has not kept food down. He states that he has had intermittent nausea and vomiting since vertigo started several months ago, but more persistent in the last couple of days. His vertigo is not acutely changed today, still occurs when he has his head in certain positions. He states that he took his meclizine and Valium prior to coming here and these are helping somewhat (he did keep them down). He states that he does not have any abdominal pain, chest pain, or dyspnea. He does not have any new pain or swelling in his extremities. He states that he has not had any diarrhea. Last bowel movement about 2 days ago and normal, denies any blood in the stools or vomitus. He states that he has not had any weakness or pain in his extremities. He has been mentating normally per his . He did go to work yesterday but came home due to nausea. He felt like his symptoms might be related to starting glipizide and also increasing his metformin. PCP advised him to stop glipizide a few days ago, and he did not take metformin today due to the nausea and vomiting. He states his blood sugar was 120 today at home. He is not exactly sure about any of the dates of his medication changes or symptoms, but he states there are no other new medication changes. His only other + on systems review is postnasal drip and some intermittent cough with phlegm production for about a month. He has not had new fever her other new symptoms. Related Data Home Medications Medication Instructions Recorded Confirmed multivitamin with minerals 1 tab PO DAILY 04/28/18 07/22/18 apple cider vinegar 1 tab PO DIRECTED 05/21/18 07/22/18 turmeric root extract 1 dose PO DIRECTED 05/21/18 07/22/18 aspirin 1 tab PO DAILY 07/21/18 07/22/18 sildenafil (antihypertensive) 1 - 5 tab PO PRN PRN 07/21/18 07/22/18 Previous Rx's Medication Instructions Recorded atorvastatin 80 mg tablet 80 mg PO HS #90 tab 04/30/18 meclizine 25 mg chewable tablet 25 mg PO TID PRN #20 tab 04/30/18 blood sugar diagnostic strips #100 each 05/21/18 losartan 50 mg tablet 50 mg PO DAILY #90 tab 05/21/18 glipizide ER 10 mg tablet, 10 mg PO Q DAY #90 tab 06/04/18 extended release 24 hr metformin 850 mg tablet 850 mg PO BIDCC #180 tab 06/04/18 metoprolol succinate ER 25 mg 25 mg PO QDAY #90 tab 06/04/18 tablet,extended release 24 hr diazepam [Valium] 5 mg PO BID-TID PRN #7 tab 07/21/18 ondansetron [Zofran ODT] 4 mg PO BID-TID PRN #10 tab 07/21/18 ondansetron [Zofran ODT] 4 mg PO BID-TID PRN #10 tab 07/23/18 scopolamine base 1 patch TRANSDERMAL Q3D PRN #4 each 07/26/18 Allergies Allergy/AdvReac Type Severity Reaction Status Date / Time No Known Drug Allergies Allergy Verified 07/23/18 12:39 Review of Systems <Meme Pate PA-C - Last Filed: 07/26/18 21:37> Review of Systems All systems reviewed & are unremarkable except as noted in HPI and below Exam <Meme Pate PA-C - Last Filed: 07/26/18 21:37> Narrative Exam Narrative: GENERAL APPEARANCE: Patient sitting comfortably, in no distress. He is wearing a U shaped neck reversed to keep his neck still HEENT: PERRL, EOMI, normal TMs and oropharynx, no sinus TTP NECK: Supple, no masses LUNGS: Clear to auscultation bilaterally, no cough on exam. HEART: Rate and rhythm regular without murmur, normal S1 and S2, no S3 or S4. ABDOMEN: Soft, NT, ND, + BS x 4 quadrants NEUROLOGIC: Alert and oriented, normal speech,and coordination. EXTREMITIES: No cyanosis or edema, no calf TTP DERMATOLOGIC: No exanthem, no jaundice Initial Vital Signs Initial Vital Signs: Vital Signs Pulse Rate 81 07/26/18 17:38 Respiratory Rate 14 07/26/18 17:38 Blood Pressure 151/80 H 07/26/18 17:38 Pulse Oximetry 100 07/26/18 17:38 <Eros Santos DO - Last Filed: 07/27/18 00:05> Initial Vital Signs Initial Vital Signs: Vital Signs Pulse Rate 81 07/26/18 17:38 Respiratory Rate 14 07/26/18 17:38 Blood Pressure 151/80 H 07/26/18 17:38 Pulse Oximetry 100 07/26/18 17:38 Course <Meme Pate PA-C - Last Filed: 07/26/18 21:37> Additional Information: This patient has not had any acute changes in his vertigo. He has had thorough evaluation previously including CTA and MRI. He has not had any recurrent vomiting while in the department. He reported feeling significantly improved after IV fluids and Zofran, and was tolerating water and apple sauce prior to discharge. He agreed to return if any acutely worsening symptoms. We did decide to try scopolamine patch to see if this is more effective for him while he waits for ENT consultation. He is going to call tomorrow regarding appointment and also follow up with his PCP regarding his diabetes medications which he feels have contributed to GI sx. He agreed to return in the interim if any acutely worsening symptoms again Orders Ordered: ED Orders 07/26/18 18:06 EKG-12 Lead Stat 07/26/18 18:23 XR chest 1V Stat 07/26/18 18:59 Complete Blood Count AUTO DIFF Stat Comprehensive Metabolic Panel Stat Lipase Stat Discontinued Medications Sodium Chloride (Normal Saline 0.9%) 1,000 mls @ 1,000 mls/hr IV BOLUS ONE Stop: 07/26/18 19:21 Last Infusion: 07/26/18 20:03 Dose: 0 mls/hr Admin: 07/26/18 18:55 Dose: 1,000 mls/hr Ondansetron HCl (Zofran) 4 mg IV NOW ONE Stop: 07/26/18 18:23 Last Admin: 07/26/18 18:55 Dose: 4 mg Pantoprazole Sodium (Protonix) 40 mg IV NOW ONE Stop: 07/26/18 18:28 Last Admin: 07/26/18 18:55 Dose: 40 mg Scopolamine (Transderm-Scop) 1 patch TOP NOW ONE Stop: 07/26/18 19:38 Last Admin: 07/26/18 20:00 Dose: 1 patch Vital Signs - 8 hr 07/26/18 17:38 07/26/18 17:42 07/26/18 18:52 Temperature 97.5 F L 97.5 F L Pulse Rate 81 89 Respiratory Rate 14 18 Blood Pressure 151/80 H Blood Pressure [Left Arm] 164/94 H Pulse Oximetry 100 98 07/26/18 21:07 Temperature Pulse Rate 75 Respiratory Rate 16 Blood Pressure 158/91 H Blood Pressure [Left Arm] Pulse Oximetry 99 <Eros Santos, DO - Last Filed: 07/27/18 00:05> Orders Ordered: ED Orders 07/26/18 18:06 EKG-12 Lead Stat 07/26/18 18:23 XR chest 1V Stat 07/26/18 18:59 Complete Blood Count AUTO DIFF Stat Comprehensive Metabolic Panel Stat Lipase Stat Discontinued Medications Sodium Chloride (Normal Saline 0.9%) 1,000 mls @ 1,000 mls/hr IV BOLUS ONE Stop: 07/26/18 19:21 Last Infusion: 07/26/18 20:03 Dose: 0 mls/hr Admin: 07/26/18 18:55 Dose: 1,000 mls/hr Ondansetron HCl (Zofran) 4 mg IV NOW ONE Stop: 07/26/18 18:23 Last Admin: 07/26/18 18:55 Dose: 4 mg Pantoprazole Sodium (Protonix) 40 mg IV NOW ONE Stop: 07/26/18 18:28 Last Admin: 07/26/18 18:55 Dose: 40 mg Scopolamine (Transderm-Scop) 1 patch TOP NOW ONE Stop: 07/26/18 19:38 Last Admin: 07/26/18 20:00 Dose: 1 patch Vital Signs - 8 hr 07/26/18 17:38 07/26/18 17:42 07/26/18 18:52 Temperature 97.5 F L 97.5 F L Pulse Rate 81 89 Respiratory Rate 14 18 Blood Pressure 151/80 H Blood Pressure [Left Arm] 164/94 H Pulse Oximetry 100 98 07/26/18 21:07 Temperature Pulse Rate 75 Respiratory Rate 16 Blood Pressure 158/91 H Blood Pressure [Left Arm] Pulse Oximetry 99 MDM - Dizziness <Meme Pate PA-C - Last Filed: 07/26/18 21:37> Lab Data Result diagrams: 07/26/18 18:59 07/26/18 18:59 Lab Results 07/26/18 07/26/18 Range/Units 18:59 18:59 WBC 8.5 (4.5-11.0) X10^3/uL RBC 5.03 (4.5-5.9) X10^6/uL Hgb 15.4 (13.5-17.5) g/dL Hct 46.0 (41-53) % MCV 91.4 (80-100) fL MCH 30.6 (26-34) PG MCHC 33.5 (30-36) % RDW 14.1 (11.6-14.8) % Plt Count 188 (150-400) X10^3/uL Neut % (Auto) 54.5 (50-75) % Lymph % (Auto) 34.8 (25-40) % Howell % (Auto) 9.1 (3-14) % Eos % (Auto) 0.4 L (2-4) % Baso % (Auto) 1.2 (0-2) % Neut # (Auto) 4600 (8433-4471) /uL Sodium 145 (137-145) mmol/L Potassium 4.8 (3.4-5.1) mmol/L Chloride 98 (98-107) mmol/L Carbon Dioxide 36 H (22-32) mmol/L BUN 12 (9-20) mg/dL Creatinine 0.80 (0.66-1.25) mg/dL Estimated GFR > 60.0 (>60) mL/min BUN/Creatinine Ratio 15.0 (6-22) Glucose 167 H (70-100) mg/dL Calcium 10.1 (8.4-10.2) mg/dL Total Bilirubin 0.4 (0.2-1.3) mg/dL AST 22 (17-59) IU/L ALT 22 (21-72) IU/L Alkaline Phosphatase 63 (38-126) U/L Total Protein 8.4 H (6.3-8.2) g/dL Albumin 4.9 (3.5-5.0) g/dL Globulin 3.5 (1.7-4.1) g/dL Albumin/Globulin Ratio 1.4 (1.0-2.8) Lipase 139 (23-300) U/L Imaging Data Chest x-ray: Radiologist's impression: View Report History [address] [address] XRay Report Signed Patient: Tanner Ordonez V MR#: [id number] : 1960 Acct:[id number] Age/Sex: 57 / M Date of Service: 07/26/18 Loc: ED Accession Number: [id number] Procedure: XR chest 1V Ordering Provider: Meme Pate P.A-C PROCEDURE: XR CHEST 1V INDICATIONS: cough TECHNIQUE: One view of the chest was acquired. COMPARISON: None. FINDINGS: Surgical changes and devices: None. Lungs and pleura: No pleural effusions or pneumothorax. Lungs are clear. Mediastinum: Mediastinal contours appear normal. Heart size is normal. Bones and chest wall: No suspicious bony lesions. Overlying soft tissues appear unremarkable. IMPRESSION: No acute cardiopulmonary pathology. Dictated by: Ron Landon M.D. on 07/26/2018 at 19:25 Approved by: Ron Landon M.D. on 07/26/2018 at 19:26 ECG Data Attestation: I personally reviewed and interpreted this ECG as follows: (Normal sinus rhythm, rate 82, no acute changes from previous) Prior ECG tracings: available for review <Eros Santos DO - Last Filed: 07/27/18 00:05> Lab Data Lab Results 07/26/18 07/26/18 Range/Units 18:59 18:59 WBC 8.5 (4.5-11.0) X10^3/uL RBC 5.03 (4.5-5.9) X10^6/uL Hgb 15.4 (13.5-17.5) g/dL Hct 46.0 (41-53) % MCV 91.4 (80-100) fL MCH 30.6 (26-34) PG MCHC 33.5 (30-36) % RDW 14.1 (11.6-14.8) % Plt Count 188 (150-400) X10^3/uL Neut % (Auto) 54.5 (50-75) % Lymph % (Auto) 34.8 (25-40) % Howell % (Auto) 9.1 (3-14) % Eos % (Auto) 0.4 L (2-4) % Baso % (Auto) 1.2 (0-2) % Neut # (Auto) 4600 (5582-4301) /uL Sodium 145 (137-145) mmol/L Potassium 4.8 (3.4-5.1) mmol/L Chloride 98 (98-107) mmol/L Carbon Dioxide 36 H (22-32) mmol/L BUN 12 (9-20) mg/dL Creatinine 0.80 (0.66-1.25) mg/dL Estimated GFR > 60.0 (>60) mL/min BUN/Creatinine Ratio 15.0 (6-22) Glucose 167 H (70-100) mg/dL Calcium 10.1 (8.4-10.2) mg/dL Total Bilirubin 0.4 (0.2-1.3) mg/dL AST 22 (17-59) IU/L ALT 22 (21-72) IU/L Alkaline Phosphatase 63 (38-126) U/L Total Protein 8.4 H (6.3-8.2) g/dL Albumin 4.9 (3.5-5.0) g/dL Globulin 3.5 (1.7-4.1) g/dL Albumin/Globulin Ratio 1.4 (1.0-2.8) Lipase 139 (23-300) U/L Discharge Plan Departure Patient Disposition: Home Clinical Impression: Increased nausea and vomiting, Chronic vertigo Discharge Date/Time: 07/26/18 21:07 Interventions: ED Discharge Assessment Last Done: 07/26/18 21:07 Instructions: DI for Vertigo, DI for Nausea -- Adult Activity Restrictions/Additional Instructions: Please return as we talked about if you have any acutely worsening symptoms. Otherwise, since you are feeling better now and able to drink fluids and eat a little bit, it is okay to monitor at home. Try remaining off of your diabetes medicines tonight to see if you feel better. Drink clear fluids and you can try bland foods such as the sugar free apple sauce you tried or broth and advance your diet slowly. We have put on a scopolamine patch for the vertigo tonight. This works for 72 hr. Please see whether this works better for you that the meclizine that you have been taking (discontinue that). I have sent a prescription for this to your pharmacy so that you can continue it if it works better for you. If you do not find it is helping more than the meclizine over the next couple of days, you can remove the patch and resume the meclizine. You can continue your Valium if needed, as well as your antinausea medicine Odansetron that you already have. You should not drive or do risk activity when you have vertigo as this could put you and others at risk. You should also not drive when taking Valium as it could make you sleepy. You do need to see the neurosurgery research director that you have been waiting for an appointment for. I recommend [facility] locally , and have given you the information for Dr. Monsivais here in [facility] [address]. Please call in the morning regarding an appointment. You should also call your PCP for follow-up to determine what to do with your diabetes medications. Remain off of them tonight. If you are feeling better tomorrow, you may want to talk to her about resuming the old dose of metformin that you were taking previously since you seemed to tolerate that without problems. Prescriptions: New scopolamine base 1 mg over 3 days patch 3 day 1 patch Transdermal Q3D PRN (Reason: vertigo) Qty: 4 RF: 0 No Action atorvastatin 80 mg tablet 80 mg PO HS Qty: 90 RF: 0 meclizine 25 mg tablet,chewable 25 mg PO TID PRN (Reason: dizziness) Qty: 20 RF: 0 metoprolol succinate [Toprol XL] 25 mg tablet extended release 24 hr 25 mg PO QDAY Qty: 90 RF: 0 glipizide 10 mg tablet extended release 24hr 10 mg PO Q DAY Qty: 90 RF: 0 metformin 850 mg tablet 850 mg PO BIDCC Qty: 180 RF: 0 apple cider vinegar 1 tab PO DIRECTED RF: 0 turmeric root extract 1 dose PO DIRECTED RF: 0 losartan 50 mg tablet 50 mg PO DAILY Qty: 90 RF: 1 blood sugar diagnostic [Blood Glucose Test] strip .ROUTE .MEDSUPPLY Qty: 100 RF: 8 ondansetron [Zofran ODT] 4 mg tablet,disintegrating 4 mg PO BID-TID PRN (Reason: nausea and vomiting) Qty: 10 RF: 0 multivitamin with minerals Tablet 1 tab PO DAILY RF: 0 aspirin 81 mg tablet,delayed release (DR/EC) 1 tab PO DAILY RF: 0 sildenafil (antihypertensive) 20 mg tablet 1 - 5 tab PO PRN PRN (Reason: Sexual Activity) RF: 0 ondansetron [Zofran ODT] 4 mg tablet,disintegrating 4 mg PO BID-TID PRN (Reason: nausea and vomiting) Qty: 10 RF: 0 diazepam [Valium] 5 mg tablet 5 mg PO BID-TID PRN (Reason: vertigo) Qty: 7 RF: 0 Referrals: Ha Monsivais MD [Physician] - Roro Peñaloza DO [Physician] - <Eros Santos DO - Last Filed: 07/27/18 00:05> Cosign ED Attending Jessica Attestation: I was immediately available in the department for consultation. Documentation has been reviewed. I agree with assessment and plan.
--- NOTE | 2018-07-26 18:23 | DI.RAD.S_ITS ---
PROCEDURE: XR CHEST 1V INDICATIONS: cough TECHNIQUE: One view of the chest was acquired. COMPARISON: None. FINDINGS: Surgical changes and devices: None. Lungs and pleura: No pleural effusions or pneumothorax. Lungs are clear. Mediastinum: Mediastinal contours appear normal. Heart size is normal. Bones and chest wall: No suspicious bony lesions. Overlying soft tissues appear unremarkable. IMPRESSION: No acute cardiopulmonary pathology. Dictated by: Ron Landon M.D. on 07/26/2018 at 19:25 Approved by: Ron Landon M.D. on 07/26/2018 at 19:26
[2018-07-26 18:52] VITALS: BP 164/94; PULSE 89; RESP 18; TEMP 36.4; O2SAT 98
[2018-07-26] MEDS: PANTOPRAZOLE 40 MG VIAL IV (18:55)
[2018-07-26] MEDS: SODIUM CHLORIDE 0.9% 1,000 ML 1000 ML IV (18:55)
[2018-07-26] MEDS: ONDANSETRON 4 MG/2 ML INJ IV (18:55)
[2018-07-26 19:08] LABS: Add Manual Diff / Slide Review NO; Basophils Percent Auto 1.2 % (0-2); Eosinophils Percent Auto 0.4 % (2-4); Hemoglobin 15.4 g/dL (13.5-17.5); Lymphocytes Percent Auto 34.8 % (25-40); Mean Corpuscular HGB Conc 33.5 % (30-36); Mean Corpuscular Hemoglobin 30.6 PG (26-34); Mean Corpuscular Volume 91.4 fL (80-100); Monocytes Percent Auto 9.1 % (3-14); Neutrophils Absolute Auto 4600 /uL (3000-5900); Neutrophils Percent Auto 54.5 % (50-75); Platelet Count 188 X10^3/uL (150-400); Red Blood Cell Count 5.03 X10^6/uL (4.5-5.9); Red Cell Distribution Width 14.1 % (11.6-14.8); White Blood Cell Count 8.5 X10^3/uL (4.5-11.0)
[2018-07-26 19:20] LABS: Alanine Aminotransferase 22 IU/L (21-72); Albumin 4.9 g/dL (3.5-5.0); Albumin Globulin Ratio 1.4 (1.0-2.8); Alkaline Phosphatase 63 U/L (38-126); Aspartate Aminotransferase 22 IU/L (17-59); Bilirubin Total 0.4 mg/dL (0.2-1.3); Blood Urea Nitrogen 12 mg/dL (9-20); Calcium 10.1 mg/dL (8.4-10.2); Carbon Dioxide 36 mmol/L (22-32); Chloride 98 mmol/L (98-107); Estimated Glomerular Filt Rate > 60.0 mL/min (>60); Globulin 3.5 g/dL (1.7-4.1); Glucose 167 mg/dL (70-100); HEMOLYSIS < 15 (0-50); Lipase 139 U/L (23-300); Potassium 4.8 mmol/L (3.4-5.1); Sodium 145 mmol/L (137-145); Total Protein 8.4 g/dL (6.3-8.2)
[2018-07-26] MEDS: SCOPOLAMINE 1 PATCH TOP (20:00)
[2018-07-26 21:07] VITALS: BP 158/91; PULSE 75; RESP 16; O2SAT 99
== END 2018-07-26 21:07 | disposition home or self-care (01) ==
PROVIDERS: Emergency Provider Internal Medicine; Family Provider Family Medicine; PCP Family Medicine
DX: R11.2 Nausea with vomiting, unspecified (principal)
CPT/HCPCS: 36591; 71045; 80053; 83690; 85025; 93005; 93010; 96361; 96374; 96375; 99283; 99285; C9113; J2405

== ENCOUNTER → 2018-08-17 10:49 | Outpatient (CLI) | payer OTHER, SELFPAY ==
[2018-07-22 09:13] VITALS: BMI 28.3
[2018-08-17 11:28] LABS: Hemoglobin A1C% w Est Avg Glu 7.9 % (4.0-6.0)
== END ==
PROVIDERS: Visit Provider Family Medicine
DX: E11.9 Type 2 diabetes mellitus without complications (principal)
CPT/HCPCS: 36415; 83036

== ENCOUNTER → 2018-10-19 13:18 | Outpatient (CLI) | payer OTHER, SELFPAY ==
[2018-07-22 09:13] VITALS: BMI 28.3
[2018-10-19 14:54] LABS: BUN Creatinine Ratio 14.3 (6-22); Blood Urea Nitrogen 10 mg/dL (9-20); Estimated Glomerular Filt Rate > 60.0 mL/min (>60)
== END ==
PROVIDERS: PCP Family Medicine; Visit Provider Family Medicine
DX: Z01.812 Encounter for preprocedural laboratory examination (principal)
CPT/HCPCS: 36415; 82565; 84520

== ENCOUNTER 2018-10-25 13:25 | Emergency (ER) | payer OTHER, SELFPAY ==
[2018-07-22 09:13] VITALS: BMI 28.3
--- NOTE | 2018-10-25 13:31 | ED.EXTPRO ---
HPI - Extremity Problem General Chief complaint: Extremity Problem,Nontraumatic Stated complaint: BOTH FEET SWOLLEN Time Seen by Provider: 10/25/18 13:31 Source: patient Mode of arrival: ambulatory Limitations: no limitations History of Present Illness HPI Narrative: Fifty 8-year-old male here for evaluation of bilateral ft swelling. Patient's states that she noticed yesterday. No trauma. Has not tried anything for prior to arrival. She states that they have improved somewhat since yesterday. No chest pain or shortness of breath. Never had anything like this before. States he did not Related Data Home Medications Medication Instructions Recorded Confirmed multivitamin with minerals 1 tab PO DAILY 04/28/18 10/08/18 apple cider vinegar 1 tab PO DIRECTED 05/21/18 10/08/18 turmeric root extract 1 dose PO DIRECTED 05/21/18 10/08/18 aspirin 1 tab PO DAILY 07/21/18 10/08/18 sildenafil (antihypertensive) 1 - 5 tab PO PRN PRN 07/21/18 10/08/18 Previous Rx's Medication Instructions Recorded atorvastatin 80 mg tablet 80 mg PO HS #90 tab 04/30/18 meclizine 25 mg chewable tablet 25 mg PO TID PRN #20 tab 04/30/18 blood sugar diagnostic strips #100 each 05/21/18 losartan 50 mg tablet 50 mg PO DAILY #90 tab 05/21/18 glipizide ER 10 mg tablet, 10 mg PO Q DAY #90 tab 06/04/18 extended release 24 hr metformin 850 mg tablet 850 mg PO BIDCC #180 tab 06/04/18 metoprolol succinate ER 25 mg 25 mg PO QDAY #90 tab 06/04/18 tablet,extended release 24 hr ondansetron 4 mg disintegrating 4 mg PO BID-TID PRN #20 tab 08/17/18 tablet diazepam 5 mg tablet 5 mg PO BID-TID PRN #14 tab 09/14/18 furosemide [Lasix] 20 mg PO DAILY #14 tab 10/25/18 Allergies Allergy/AdvReac Type Severity Reaction Status Date / Time No Known Drug Allergies Allergy Verified 10/08/18 13:20 Review of Systems Constitutional Denies fever(s) Cardiovascular Denies chest pain, Denies syncope, Reports pedal edema, Denies leg edema, Denies palpitations and Denies dyspnea Respiratory Denies cough and Denies dyspnea Gastrointestinal Gastrointestinal: Denies abdominal pain, Denies nausea and Denies vomiting Musculoskeletal Denies myalgias, Denies arthralgias and Denies joint swelling Integumentary/Breasts Denies lesions and Denies rash Neurologic Denies confusion and Denies syncope Psychiatric Denies confusion Endocrine Denies palpitations Hematologic/Lymphatic Denies easy bleeding and Denies easy bruising [facility] Social History household members: spouse and family Smoking Status: Never smoker alcohol intake: former Exam Initial Vital Signs Initial Vital Signs: Vital Signs Temperature 98.0 F 10/25/18 13:39 Pulse Rate 91 H 10/25/18 13:39 Respiratory Rate 18 10/25/18 13:39 Blood Pressure 177/92 H 10/25/18 13:39 Pulse Oximetry 98 10/25/18 13:39 Const General: cooperative, comfortable, well developed, well groomed and No acute distress Orientation: alert, awake and oriented x3 HENMT Head: normal to inspection and normocephalic Resp Effort & Inspection: normal respiratory effort Auscultation: clear to auscultation bilaterally Cardio Rate: regular rate Rhythm: regular rhythm Other: Capillary refill less than 2 sec bilateral lower extremities Skin Lesions: no lesions Rashes: no rashes Neuro Other: Patient with a history of vertigo and arrives today with a cervical pillow and placed in order to keep his head from turning. Extrem General: normal to inspection and capillary refill normal Psych Appearance: grossly normal and well kempt Course Orders Ordered: ED Orders 10/25/18 14:10 B Type Natriuretic Peptide Stat Complete Blood Count AUTO DIFF Stat Comprehensive Metabolic Panel Stat Lipase Stat Vital Signs - 8 hr 10/25/18 13:39 Temperature 98.0 F Pulse Rate 91 H Respiratory Rate 18 Blood Pressure 177/92 H Pulse Oximetry 98 MDM - Extremity (Nontraumatic) Lab Data Result diagrams: 10/25/18 14:10 10/25/18 14:10 Lab Results 10/25/18 10/25/18 Range/Units 14:10 14:10 WBC 6.8 (4.5-11.0) X10^3/uL RBC 4.68 (4.5-5.9) X10^6/uL Hgb 14.3 (13.5-17.5) g/dL Hct 42.8 (41-53) % MCV 91.5 (80-100) fL MCH 30.6 (26-34) PG MCHC 33.5 (30-36) % RDW 13.5 (11.6-14.8) % Plt Count 184 (150-400) X10^3/uL Neut % (Auto) 57.6 (50-75) % Lymph % (Auto) 33.4 (25-40) % [place] % (Auto) 6.5 (3-14) % Eos % (Auto) 1.1 L (2-4) % Baso % (Auto) 1.4 (0-2) % Neut # (Auto) 3900 (2321-2859) /uL Sodium 142 (137-145) mmol/L Potassium 4.6 (3.4-5.1) mmol/L Chloride 100 (98-107) mmol/L Carbon Dioxide 30 (22-32) mmol/L BUN 10 (9-20) mg/dL Creatinine 0.70 (0.66-1.25) mg/dL Estimated GFR > 60.0 (>60) mL/min BUN/Creatinine Ratio 14.3 (6-22) Glucose 158 H (70-100) mg/dL Calcium 9.7 (8.4-10.2) mg/dL Total Bilirubin 0.5 (0.2-1.3) mg/dL AST 23 (17-59) IU/L ALT 23 (21-72) IU/L Alkaline Phosphatase 59 (38-126) U/L B-Natriuretic Peptide < 30.0 (<100) Total Protein 7.9 (6.3-8.2) g/dL Albumin 4.6 (3.5-5.0) g/dL Globulin 3.3 (1.7-4.1) g/dL Albumin/Globulin Ratio 1.4 (1.0-2.8) Lipase 130 (23-300) U/L [facility] Narrative Medical decision making narrative: Patient with normal labs. Does not appear to be a renal issue. BNP is unremarkable. Patient is not in heart failure. Skin is unremarkable. No signs of cellulitis. His right lower extremity is somewhat larger than the left lower extremity however it does seem to be localized to the feet and ankles. No other pain in the upper extremity. Consider DVT however given his clinical presentation today I feel that DVT is less likely. We did discuss conservative measures to include keeping his feet elevated also compression stockings. Will give a prescription for Lasix to start taking if his symptoms do not improve with these conservative measures. We discussed return precautions. Both he and his was at bedside expressed understanding and agreement with this plan Discharge Plan Departure Patient Disposition: Home Clinical Impression: Pedal edema Instructions: Edema (Alternative Therapy), How to Use an Elastic Bandage -- Edema, DI for Peripheral Edema -- Bilateral Activity Restrictions/Additional Instructions: Recommend you do the conservative measures such as the compression stockings and keeping your feet elevated. If this does not work or if your symptoms worsened and start the medications your given a prescription for today. Contact your primary care doctor for a follow-up. Return to the emergency department for any new or worsening symptoms Prescriptions: New furosemide [Lasix] 20 mg tablet 20 mg PO DAILY Qty: 14 RF: 0 No Action atorvastatin 80 mg tablet 80 mg PO HS Qty: 90 RF: 0 meclizine 25 mg tablet,chewable 25 mg PO TID PRN (Reason: dizziness) Qty: 20 RF: 0 metoprolol succinate [Toprol XL] 25 mg tablet extended release 24 hr 25 mg PO QDAY Qty: 90 RF: 0 glipizide 10 mg tablet extended release 24hr 10 mg PO Q DAY Qty: 90 RF: 0 metformin 850 mg tablet 850 mg PO BIDCC Qty: 180 RF: 0 diazepam 5 mg tablet 5 mg PO BID-TID PRN (Reason: anxiety) Qty: 14 RF: 0 apple cider vinegar 1 tab PO DIRECTED RF: 0 turmeric root extract 1 dose PO DIRECTED RF: 0 losartan 50 mg tablet 50 mg PO DAILY Qty: 90 RF: 1 blood sugar diagnostic [Blood Glucose Test] strip .ROUTE .MEDSUPPLY Qty: 100 RF: 8 ondansetron [Zofran ODT] 4 mg tablet,disintegrating 4 mg PO BID-TID PRN (Reason: nausea and vomiting) Qty: 20 RF: 0 multivitamin with minerals Tablet 1 tab PO DAILY RF: 0 aspirin 81 mg tablet,delayed release (DR/EC) 1 tab PO DAILY RF: 0 sildenafil (antihypertensive) 20 mg tablet 1 - 5 tab PO PRN PRN (Reason: Sexual Activity) RF: 0
[2018-10-25 13:39] VITALS: BP 177/92; PULSE 91; RESP 18; TEMP 36.7; O2SAT 98; BMI 26.4
[2018-10-25 14:25] LABS: Add Manual Diff / Slide Review NO; Basophils Percent Auto 1.4 % (0-2); Eosinophils Percent Auto 1.1 % (2-4); Hematocrit 42.8 % (41-53); Hemoglobin 14.3 g/dL (13.5-17.5); Lymphocytes Percent Auto 33.4 % (25-40); Mean Corpuscular HGB Conc 33.5 % (30-36); Mean Corpuscular Hemoglobin 30.6 PG (26-34); Mean Corpuscular Volume 91.5 fL (80-100); Monocytes Percent Auto 6.5 % (3-14); Neutrophils Absolute Auto 3900 /uL (3000-5900); Neutrophils Percent Auto 57.6 % (50-75); Platelet Count 184 X10^3/uL (150-400); Red Blood Cell Count 4.68 X10^6/uL (4.5-5.9); Red Cell Distribution Width 13.5 % (11.6-14.8); White Blood Cell Count 6.8 X10^3/uL (4.5-11.0)
[2018-10-25 14:36] LABS: Alanine Aminotransferase 23 IU/L (21-72); Albumin 4.6 g/dL (3.5-5.0); Albumin Globulin Ratio 1.4 (1.0-2.8); Alkaline Phosphatase 59 U/L (38-126); Aspartate Aminotransferase 23 IU/L (17-59); BUN Creatinine Ratio 14.3 (6-22); Bilirubin Total 0.5 mg/dL (0.2-1.3); Blood Urea Nitrogen 10 mg/dL (9-20); Calcium 9.7 mg/dL (8.4-10.2); Carbon Dioxide 30 mmol/L (22-32); Chloride 100 mmol/L (98-107); Estimated Glomerular Filt Rate > 60.0 mL/min (>60); Globulin 3.3 g/dL (1.7-4.1); Glucose 158 mg/dL (70-100); HEMOLYSIS < 15 (0-50); Lipase 130 U/L (23-300); Potassium 4.6 mmol/L (3.4-5.1); Sodium 142 mmol/L (137-145); Total Protein 7.9 g/dL (6.3-8.2)
[2018-10-25 14:48] LABS: B Type Natriuretic Peptide < 30.0 (<100)
[2018-10-25 15:14] VITALS: BP 171/88; PULSE 87; RESP 17; O2SAT 99
== END 2018-10-25 15:15 | disposition home or self-care (01) ==
PROVIDERS: Emergency Provider Emergency Medicine; PCP Family Medicine
DX: R60.0 Localized edema (principal)
CPT/HCPCS: 36415; 80053; 83690; 83880; 85025; 93041; 99283; 99284

== ENCOUNTER → 2018-12-24 15:30 | Outpatient (CLI) | payer OTHER, SELFPAY ==
[2018-10-26 08:39] VITALS: BMI 28.3
--- NOTE | 2018-12-24 15:34 | DI.RAD.S_ITS ---
PROCEDURE: XR CERVICAL SPINE 2V OR 3V INDICATIONS: pressure sensation TECHNIQUE: 3 view(s) of the cervical spine were acquired. COMPARISON: None. FINDINGS: Bones: No fractures or dislocations to the T1 level. The lateral masses of C1 appear intact on the odontoid view. No suspicious bony lesions. Soft tissues: No prevertebral soft tissue swelling. IMPRESSION: Mild degenerative disc disease is seen along the cervical spine without source of pressure symptom identified. Dictated by: Anatoly Rosen M.D. on 12/24/2018 at 16:00 Approved by: Anatoly Rosen M.D. on 12/24/2018 at 16:01
--- NOTE | 2018-12-24 15:34 | DI.RAD.S_ITS ---
PROCEDURE: XR THORACIC SPINE 3V INDICATIONS: spinous process tenderness, prior injury TECHNIQUE: Pre-views of the thoracic spine were acquired. COMPARISON: None. FINDINGS: Bones: No fractures or dislocations. No suspicious bony lesions. 12 pairs of ribs are noted, and appear intact where visualized. Soft tissues: No paravertebral stripe thickening. IMPRESSION: There is [id number] degenerative disc disease along the thoracic spine, without evidence of compression fracture or subluxation. No spinal or foraminal stenosis is found. Dictated by: Anatoly Rosen M.D. on 12/24/2018 at 16:01 Approved by: Anatoly Rosen M.D. on 12/24/2018 at 16:01
== END ==
PROVIDERS: PCP Family Medicine; Visit Provider Family Medicine
DX: M54.9 Dorsalgia, unspecified (principal); M50.30 Other cervical disc degeneration, unspecified cervical region; M51.34 Other intervertebral disc degeneration, thoracic region
CPT/HCPCS: 72040; 72072; 87070; 87075; 87205

== ENCOUNTER → 2018-12-24 17:05 | Outpatient (CLI) | payer OTHER, SELFPAY ==
[2018-10-26 08:39] VITALS: BMI 28.3
== END ==
PROVIDERS: PCP Family Medicine; Visit Provider Family Medicine
DX: M71.329 Other bursal cyst, unspecified elbow (principal); M71.9 Bursopathy, unspecified
CPT/HCPCS: 87070; 87075; 87205

== ENCOUNTER 2019-01-15 18:47 | Emergency (ER) | payer OTHER, SELFPAY ==
[2018-10-26 08:39] VITALS: BMI 28.3
[2019-01-15 18:55] VITALS: BP 173/98; PULSE 117; RESP 18; TEMP 36.7; O2SAT 99; BMI 26.1
--- NOTE | 2019-01-15 19:19 | PC.NURSE ---
Pt has long standing vertigo w/ CT, MRI and multiple MD visits. Has appointment @ [facility] for further evaluation. Pt and state his gait is at baseline. Usually treated w/ meclizine.
--- NOTE | 2019-01-15 19:46 | ED.DIZZY ---
HPI - Dizziness <Meme Pate PA-C - Last Filed: 01/15/19 22:08> General Chief Complaint: Dizziness Stated Complaint: fall down stairs, hit head Time Seen by Provider: 01/15/19 19:46 Source: patient and family Mode of arrival: ambulatory Limitations: no limitations History of Present Illness HPI Narrative: This 58-year-old gentleman comes to ED after slipping on the 3rd to last step at home and falling. He was wearing his socks and states that he simply slipped, and his confirms that this is a slippery area. He states that has not had any vertigo today and this was not the reason for his fall. He states he fell and hit his right side and back on the wall on the way down, then after coming down hit and scraped the back of his head. He denies any LOC and states he knew exactly what had happened. He was able to get up. He states that he has ongoing vision issues associated with his vertigo, but no acute changes. He has not had any nausea or vomiting. He states that he has chronic mid and low back pain which has been problematic for months, gradually worse. He has stiffness in his back. He states that maybe he is a little bit more stiff but does not think he has more pain in his spine. He states his neck tends to be stiff as well but denies new pain there. He does not have any new pain in his extremities nor weakness or paresthesia. He denies any other injuries. He has missed at least 1 dose of metoprolol due today, maybe yesterday as well. Of note he has severe chronic vertigo as well as a movement disorder and is awaiting further workup at [facility]. Related Data Home Medications Medication Instructions Recorded Confirmed multivitamin with minerals 1 tab PO DAILY 04/28/18 12/24/18 apple cider vinegar 1 tab PO DIRECTED 05/21/18 10/28/18 turmeric root extract 1 dose PO DIRECTED 05/21/18 10/28/18 aspirin 1 tab PO DAILY 07/21/18 12/24/18 sildenafil (antihypertensive) 1 - 5 tab PO PRN PRN 07/21/18 10/28/18 Previous Rx's Medication Instructions Recorded atorvastatin 80 mg tablet 80 mg PO HS #90 tab 04/30/18 blood sugar diagnostic strips #100 each 05/21/18 losartan 50 mg tablet 50 mg PO DAILY #90 tab 05/21/18 glipizide ER 10 mg tablet, 10 mg PO Q DAY #90 tab 06/04/18 extended release 24 hr metformin 850 mg tablet 850 mg PO BIDCC #180 tab 06/04/18 diazepam 5 mg tablet 5 mg PO BID-TID PRN #14 tab 12/02/18 meclizine 25 mg chewable tablet 25 mg PO TID PRN #20 tab 12/29/18 ondansetron 4 mg disintegrating 4 mg PO BID-TID PRN #20 tab 12/29/18 tablet metoprolol succinate ER 25 mg 25 mg PO QDAY #90 tab 01/11/19 tablet,extended release 24 hr Allergies Allergy/AdvReac Type Severity Reaction Status Date / Time No Known Drug Allergies Allergy Verified 01/15/19 18:55 Review of Systems <Meme Pate PA-C - Last Filed: 01/15/19 22:08> Review of Systems ROS Unobtainable: All systems reviewed & are unremarkable except as noted in HPI and below PFSH <Meme Pate PA-C - Last Filed: 01/15/19 22:08> Medical History Stenosis of left vertebral artery (Chronic) Vertigo (Chronic) Coronary artery disease involving eastern [place]one coronary artery of eastern [place]one heart without angina pectoris (Chronic 11/11/16) Hypertension (Chronic) Hyperlipidemia (Chronic 11/11/16) Type 2 diabetes mellitus without complication (Chronic 11/11/16) Asbestosis (Chronic) Cataract (Chronic ~2009) Chronic back pain (Chronic ~2000) Coronary artery disease (Chronic) Diabetes (Chronic) Hearing loss (Chronic ~1999) Heart attack (Resolved ~2001) Surgical History History of cataract surgery (Resolved) Surgical procedure planned (Resolved ~2001) Anesthesia (Inactive) Family History Mother Diabetes mellitus Father No problems noted. Social History household members: spouse and family Smoking Status: Never smoker alcohol intake: former Social History household members: spouse and family Smoking Status: Never smoker alcohol intake: former Exam <Meme Pate PA-C - Last Filed: 01/15/19 22:08> Narrative Exam Narrative: GENERAL APPEARANCE: Patient sitting comfortably, in no distress. HEENT: PERRL, EOMI, normal ear canals, nasal and oral mucosa. He has a few beats of rotary nystagmus with left or right gaze which are subtle LUNGS: Clear to auscultation bilaterally. HEART: Rate and rhythm regular without murmur, normal S1 and S2, no S3 or S4. NEUROLOGIC: Alert, normal speech MUSCULOSKELETAL: No reproducible cervical spine tenderness. He does have some mild generalized muscular tenderness throughout the cervical, thoracic and lumbar musculature. He is mildly tender over the midthoracic spine through lumbar spine. He is hesitant with neck range of motion secondary to vertigo but does not have any tenderness. Strength is intact 5/5 throughout upper and lower extremities without tenderness, negative modified straight leg raise Initial Vital Signs Initial Vital Signs: Vital Signs Temperature 98.1 F 01/15/19 18:55 Pulse Rate 117 H 01/15/19 18:55 Respiratory Rate 18 01/15/19 18:55 Blood Pressure 173/98 H 01/15/19 18:55 Pulse Oximetry 99 01/15/19 18:55 <Compa Wilkes MD - Last Filed: 01/16/19 02:32> Initial Vital Signs Initial Vital Signs: Vital Signs Temperature 98.1 F 01/15/19 18:55 Pulse Rate 117 H 01/15/19 18:55 Respiratory Rate 18 01/15/19 18:55 Blood Pressure 173/98 H 01/15/19 18:55 Pulse Oximetry 99 01/15/19 18:55 Course <Meme Pate PA-C - Last Filed: 01/15/19 22:08> Additional Information: Patient was able to ambulate to the restroom without difficulty prior to discharge, not having any acute increase in pain or other new symptoms. Did advise follow-up with his PCP next week for recheck and return if any acutely worsening symptoms over the weekend or new changes as noted in d/c instructions. He and his are agreeable Orders Ordered: ED Orders 01/15/19 19:45 CT head/brain wo con Stat 01/15/19 19:48 EKG-12 Lead Stat 01/15/19 20:02 Complete Blood Count AUTO DIFF Stat Comprehensive Metabolic Panel Stat Magnesium Stat Partial Thromboplastin Time Stat Prothrombin Time INR Stat 01/15/19 20:07 XR lumbar spine 2-3V Stat XR thoracic spine 3V Stat Discontinued Medications Acetaminophen (Tylenol) 650 mg PO NOW ONE Stop: 01/15/19 20:08 Last Admin: 01/15/19 20:21 Dose: 650 mg Meclizine HCl (Antivert) 25 mg PO NOW ONE Stop: 01/15/19 19:46 Last Admin: 01/15/19 19:53 Dose: 25 mg Metoprolol Succinate (Toprol Xl) 25 mg PO NOW ONE Stop: 01/15/19 19:46 Last Admin: 01/15/19 20:55 Dose: 25 mg Vital Signs - 8 hr 01/15/19 18:55 01/15/19 20:03 01/15/19 20:55 Temperature 98.1 F Pulse Rate 117 H 120 H 105 H Respiratory Rate 18 18 Blood Pressure 173/98 H 175/101 H Blood Pressure [Left Arm] 189/98 H Pulse Oximetry 99 98 01/15/19 20:59 01/15/19 21:25 Temperature Pulse Rate 105 H 98 H Respiratory Rate 14 14 Blood Pressure Blood Pressure [Left Arm] 175/101 H 164/89 H Pulse Oximetry 98 98 <Compa Wilkes MD - Last Filed: 01/16/19 02:32> Orders Ordered: ED Orders 01/15/19 19:45 CT head/brain wo con Stat 01/15/19 19:48 EKG-12 Lead Stat 01/15/19 20:02 Complete Blood Count AUTO DIFF Stat Comprehensive Metabolic Panel Stat Magnesium Stat Partial Thromboplastin Time Stat Prothrombin Time INR Stat 01/15/19 20:07 XR lumbar spine 2-3V Stat XR thoracic spine 3V Stat Discontinued Medications Acetaminophen (Tylenol) 650 mg PO NOW ONE Stop: 01/15/19 20:08 Last Admin: 01/15/19 20:21 Dose: 650 mg Meclizine HCl (Antivert) 25 mg PO NOW ONE Stop: 01/15/19 19:46 Last Admin: 01/15/19 19:53 Dose: 25 mg Metoprolol Succinate (Toprol Xl) 25 mg PO NOW ONE Stop: 01/15/19 19:46 Last Admin: 01/15/19 20:55 Dose: 25 mg Vital Signs - 8 hr 01/15/19 18:55 01/15/19 20:03 01/15/19 20:55 Temperature 98.1 F Pulse Rate 117 H 120 H 105 H Respiratory Rate 18 18 Blood Pressure 173/98 H 175/101 H Blood Pressure [Left Arm] 189/98 H Pulse Oximetry 99 98 01/15/19 20:59 01/15/19 21:25 Temperature Pulse Rate 105 H 98 H Respiratory Rate 14 14 Blood Pressure Blood Pressure [Left Arm] 175/101 H 164/89 H Pulse Oximetry 98 98 MDM - Dizziness <Meme Pate PA-C - Last Filed: 01/15/19 22:08> Lab Data Attestation: I reviewed the patient's lab results. Result diagrams: 01/15/19 20:02 01/15/19 20:02 Lab Results 01/15/19 01/15/19 01/15/19 Range/Units 20:02 20:02 20:02 WBC 6.6 (4.5-11.0) X10^3/uL RBC 4.54 (4.5-5.9) X10^6/uL Hgb 13.9 (13.5-17.5) g/dL Hct 41.8 (41-53) % MCV 92.0 (80-100) fL MCH 30.6 (26-34) PG MCHC 33.2 (30-36) % RDW 13.5 (11.6-14.8) % Plt Count 175 (150-400) X10^3/uL Neut % (Auto) 53.1 (50-75) % Lymph % (Auto) 36.1 (25-40) % Mercer % (Auto) 9.1 (3-14) % Eos % (Auto) 1.1 L (2-4) % Baso % (Auto) 0.6 (0-2) % Neut # (Auto) 3500 (5274-5908) /uL Lymph # (Auto) 2400 (3659-4161) /uL Mercer # (Auto) 600 (0-900) /uL Eos # (Auto) 100 (0-450) /uL Baso # (Auto) 0 (0-100) /uL PT 11.5 (10.1-12.7) SECONDS INR 1.0 (0.9-1.3) APTT 34 (26.4-36.2) SECONDS Sodium 140 (137-145) mmol/L Potassium 4.3 (3.4-5.1) mmol/L Chloride 99 (98-107) mmol/L Carbon Dioxide 32 (22-32) mmol/L BUN 15 (9-20) mg/dL Creatinine 0.80 (0.66-1.25) mg/dL Estimated GFR > 60.0 (>60) mL/min BUN/Creatinine Ratio 18.8 (6-22) Glucose 168 H (70-100) mg/dL Calcium 9.7 (8.4-10.2) mg/dL Magnesium 2.1 (1.6-2.3) mg/dL Total Bilirubin 0.3 (0.2-1.3) mg/dL AST 22 (17-59) IU/L ALT 23 (21-72) IU/L Alkaline Phosphatase 54 (38-126) U/L Total Protein 8.1 (6.3-8.2) g/dL Albumin 4.6 (3.5-5.0) g/dL Globulin 3.5 (1.7-4.1) g/dL Albumin/Globulin Ratio 1.3 (1.0-2.8) Point of Care Testing Glucose POC [address] scan - head: Radiologist's impression: Chart Viewer Diagnostics DATE TYPE STATUS AUTHOR Jose 01/15/19 20:07 CheathamAlireza newberry 01/15/19 20:07 Alireza Cheatham 01/15/19 19:45 Alireza Cheatham 12/24/18 15:34 Anatoly Rosen 12/24/18 15:34 Anatoly Rosen 11/02/18 11:00 MRI Brain 10/25/18 13:25 07/26/18 18:23 Ron Landon 04/29/18 00:00 Marcy Stuart 04/28/18 08:24 Nicola Sapp 04/28/18 06:23 04/28/18 04:00 Tripp Lema 04/27/18 08:39 Alireza Cheatham Wayne V 58, M1 REG ER, ED - Main ED: R07 167.64cm 73.482kg BMI: 26.1kg/m? Dizziness Search Chart ONSET 11/11/16 11/11/16 11/11/16 Today 20:59 Tanner Ordonez V 58 M 1960 [place] [address] CT Scan Report Signed Patient: Tanner Ordonez VMR#: [id number] : 1960Acct:[id number] Age/Sex: 58 / MDate of Service: 01/15/19 Loc: ED Accession Number: [id number] Procedure: CT head/brain wo con Ordering Provider: Compa Wilkes M.D. PROCEDURE: CT HEAD/BRAIN WO CON INDICATIONS: dizzy, fell, hit top of his head, no LOC. on ASA TECHNIQUE: Noncontrast 4.5 mm thick angled axial sections acquired from the foramen magnum to the vertex, with coronal and sagittal reformats. For radiation dose reduction, the following was used: automated exposure control, adjustment of mA and/or kV according to patient size. COMPARISON: [facility], CT, CT HEAD/BRAIN WO CON, 04/27/2018, 8:41. FINDINGS: Image quality: Excellent. CSF spaces: Basal cisterns are patent. No extra-axial fluid collections. Ventricles are normal in size and shape. Brain: No intracranial hemorrhage, mass, or mass effect. Gonzalez-white matter interface is preserved. Skull and face: Calvarium and visualized facial bones are intact, without suspicious lesions. Sinuses: Visualized sinuses and mastoids are clear. IMPRESSION: 1. No acute intracranial abnormality. Dictated by: Alireza Cheatham M.D. on 01/15/2019 at 20:58 Approved by: Alireza Cheatham M.D. on 01/15/2019 at 20:59 thoracic/lumbar spine: Radiologist's impression: Chart Viewer Diagnostics DATE TYPE STATUS AUTHOR Jose 01/15/19 20:07 Alireza Cheatham 01/15/19 20:07 Alireza Cheatham 01/15/19 19:45 Alireza Cheatham 12/24/18 15:34 Anatoly Rosen 12/24/18 15:34 Anatoly Rosen 11/02/18 11:00 MRI Brain 11/25/18 13:25 07/26/18 18:23 Ron Landon 04/29/18 00:00 Stuart,Marcy 04/28/18 08:24 Nicola Sapp 04/28/18 06:23 04/28/18 04:00 Tripp Lema 04/27/18 08:39 CheathamAlireza newberry Wayne V 58, M1 REG ER, ED - Main ED: R07 167.64cm 73.482kg BMI: 26.1kg/m? Dizziness Search Chart ONSET 11/11/16 11/11/16 11/11/16 Today 20:59 Tanenr Ordonez V 58 M [address] [address] XRay Report Signed Patient: Tanner Ordonez VMR#: [id number] : 1960Acct:[id number] Age/Sex: 58 / MDate of Service: 01/15/19 Loc: ED Accession Number: [id number] Procedure: XR thoracic spine 3V Ordering Provider: Meme Pate P.A-C PROCEDURE: XR THORACIC SPINE 3V INDICATIONS: pain (chronic, worse after fall) TECHNIQUE: 3 views of the thoracic spine were acquired. COMPARISON: [facility], , XR THORACIC SPINE 3V, 12/24/2018, 15:41. FINDINGS: Bones: No fractures or dislocations. There is mild multilevel disc space narrowing. Confluent anterior osteophytes are also noted in the thoracic spine suggestive of DISH. No suspicious bony lesions. 12 pairs of ribs are noted, and appear intact where visualized. Soft tissues: No paravertebral stripe thickening. IMPRESSION: 1. No fracture or subluxation. Dictated by: Alireza Cheatham M.D. on 01/15/2019 at 21:13 Approved by: Alireza Cheatham M.D. on 01/15/2019 at 21:13 Chart Viewer Diagnostics DATE TYPE STATUS AUTHOR Jose 01/15/19 20:07 Alireza Cheatham 01/15/19 20:07 Alireza Cheatham 01/15/19 19:45 Alireza Cheatham 12/24/18 15:34 Anatoly Rosen 12/24/18 15:34 Anatoly Rosen 11/02/18 11:00 MRI Brain 10/25/18 13:25 07/26/18 18:23 Denae Landonng 04/29/18 00:00 StuartMarcy booth 04/28/18 08:24 Nicola Sapp 04/28/18 06:23 04/28/18 04:00 Tripp Lema 04/27/18 08:39 Bishnu CheathamTanner Corbett V 58, M1 REG ER, ED - Main ED: R07 167.64cm 73.482kg BMI: 26.1kg/m? Dizziness Search Chart ONSET 11/11/16 11/11/16 11/11/16 Today 20:59 Tanner Ordonez V 58 M [address] [address] XRay Report Signed Patient: Tanner Ordonez VMR#: [id number] : 1960Acct:[id number] Age/Sex: 58 / MDate of Service: 01/15/19 Loc: ED Accession Number: [id number] Procedure: XR lumbar spine 2-3V Ordering Provider: Meme Pate P.A-C PROCEDURE: XR LUMBAR SPINE 2-3V INDICATIONS: pain TECHNIQUE: 3 views of the lumbar spine were acquired. COMPARISON: None. FINDINGS: Bones: 5 [id number] vertebrae are present. There is minimal retrolisthesis at T12-L1, L1-L2, L2-L3, and L5-S1. There is mild disc space facet arthropathy in the lower lumbar spine. No vertebral body compression fractures or other definite acute displaced fracture. No suspicious bony lesions. Soft tissues: Overlying bowel gas pattern is normal. No suspicious soft tissue calcifications. IMPRESSION: 1. No acute displaced fractures identified. 2. Mild facet arthropathy in the lower lumbar spine. Dictated by: Alireza Cheatahm M.D. on 01/15/2019 at 21:11 Approved by: Alireza Cheatham M.D. on 01/15/2019 at 21:13 ECG Data Attestation: I personally reviewed and interpreted this ECG as follows: (Sinus tachycardia with rate 110, normal axis) <Compa Wilkes MD - Last Filed: 01/16/19 02:32> Lab Data Lab Results 01/15/19 01/15/19 01/15/19 Range/Units 20:02 20:02 20:02 WBC 6.6 (4.5-11.0) X10^3/uL RBC 4.54 (4.5-5.9) X10^6/uL Hgb 13.9 (13.5-17.5) g/dL Hct 41.8 (41-53) % MCV 92.0 (80-100) fL MCH 30.6 (26-34) PG MCHC 33.2 (30-36) % RDW 13.5 (11.6-14.8) % Plt Count 175 (150-400) X10^3/uL Neut % (Auto) 53.1 (50-75) % Lymph % (Auto) 36.1 (25-40) % Mercer % (Auto) 9.1 (3-14) % Eos % (Auto) 1.1 L (2-4) % Baso % (Auto) 0.6 (0-2) % Neut # (Auto) 3500 (4974-3383) /uL Lymph # (Auto) 2400 (4647-2726) /uL Mercer # (Auto) 600 (0-900) /uL Eos # (Auto) 100 (0-450) /uL Baso # (Auto) 0 (0-100) /uL PT 11.5 (10.1-12.7) SECONDS INR 1.0 (0.9-1.3) APTT 34 (26.4-36.2) SECONDS Sodium 140 (137-145) mmol/L Potassium 4.3 (3.4-5.1) mmol/L Chloride 99 (98-107) mmol/L Carbon Dioxide 32 (22-32) mmol/L BUN 15 (9-20) mg/dL Creatinine 0.80 (0.66-1.25) mg/dL Estimated GFR > 60.0 (>60) mL/min BUN/Creatinine Ratio 18.8 (6-22) Glucose 168 H (70-100) mg/dL Calcium 9.7 (8.4-10.2) mg/dL Magnesium 2.1 (1.6-2.3) mg/dL Total Bilirubin 0.3 (0.2-1.3) mg/dL AST 22 (17-59) IU/L ALT 23 (21-72) IU/L Alkaline Phosphatase 54 (38-126) U/L Total Protein 8.1 (6.3-8.2) g/dL Albumin 4.6 (3.5-5.0) g/dL Globulin 3.5 (1.7-4.1) g/dL Albumin/Globulin Ratio 1.3 (1.0-2.8) Point of Care Testing Glucose POC 170 Discharge Plan Departure Patient Disposition: Home Clinical Impression: Fall (on) (from) other stairs and steps, initial encounter Contusion of scalp Qualifiers: Encounter type: initial encounter Qualified Code(s): S00.03XA - Contusion of scalp, initial encounter Discharge Date/Time: 01/15/19 21:50 Interventions: ED Discharge Assessment Last Done: 01/15/19 21:49 Instructions: How to Prevent Falls Activity Restrictions/Additional Instructions: We did not find any acute problems on your radiology studies tonight. As we talked about, you should return if any acutely worsening symptoms over the weekend, or new symptoms such as severe headache, vision change, vomiting, new weakness or numbness in your extremities or inability to urinate. Please take Tylenol as needed for pain. Please call your PCP 1st thing on Friday and let them know you were seen in the emergency room and we would like you to follow up for recheck next week. Prescriptions: No Action atorvastatin 80 mg tablet 80 mg PO HS Qty: 90 RF: 0 glipizide 10 mg tablet extended release 24hr 10 mg PO Q DAY Qty: 90 RF: 0 metformin 850 mg tablet 850 mg PO BIDCC Qty: 180 RF: 0 diazepam 5 mg tablet 5 mg PO BID-TID PRN (Reason: anxiety) Qty: 14 RF: 0 ondansetron [Zofran ODT] 4 mg tablet,disintegrating 4 mg PO BID-TID PRN (Reason: nausea and vomiting) Qty: 20 RF: 1 meclizine 25 mg tablet,chewable 25 mg PO TID PRN (Reason: dizziness) Qty: 20 RF: 0 metoprolol succinate [Toprol XL] 25 mg tablet extended release 24 hr 25 mg PO QDAY Qty: 90 RF: 0 apple cider vinegar 1 tab PO DIRECTED RF: 0 turmeric root extract 1 dose PO DIRECTED RF: 0 losartan 50 mg tablet 50 mg PO DAILY Qty: 90 RF: 1 blood sugar diagnostic [Blood Glucose Test] strip .ROUTE .MEDSUPPLY Qty: 100 RF: 8 multivitamin with minerals Tablet 1 tab PO DAILY RF: 0 aspirin 81 mg tablet,delayed release (DR/EC) 1 tab PO DAILY RF: 0 sildenafil (antihypertensive) 20 mg tablet 1 - 5 tab PO PRN PRN (Reason: Sexual Activity) RF: 0 Referrals: Roro Peñaloza DO [Primary Care Provider] - <Compa Wilkes MD - Last Filed: 01/16/19 02:32> Cosign ED Attending Cossangature Attestation: I was in the ER at the time this patient's care. I was available for consultation or to see the patient directly if needed. I agree with the assessment and treatment plan.
[2019-01-15] MEDS: MECLIZINE HCL 12.5 MG TABLET 25 MG PO (19:53)
[2019-01-15 20:03] VITALS: BP 189/98; PULSE 120; RESP 18; O2SAT 98
--- NOTE | 2019-01-15 20:07 | DI.RAD.S_ITS ---
PROCEDURE: XR THORACIC SPINE 3V INDICATIONS: pain (chronic, worse after fall) TECHNIQUE: 3 views of the thoracic spine were acquired. COMPARISON: [facility], CR, XR THORACIC SPINE 3V, 12/24/2018, 15:41. FINDINGS: Bones: No fractures or dislocations. There is mild multilevel disc space narrowing. Confluent anterior osteophytes are also noted in the thoracic spine suggestive of DISH. No suspicious bony lesions. 12 pairs of ribs are noted, and appear intact where visualized. Soft tissues: No paravertebral stripe thickening. IMPRESSION: 1. No fracture or subluxation. Dictated by: Alireza Cheatham M.D. on 01/15/2019 at 21:13 Approved by: Alireza Cheatham M.D. on 01/15/2019 at 21:13
--- NOTE | 2019-01-15 20:07 | DI.RAD.S_ITS ---
PROCEDURE: XR LUMBAR SPINE 2-3V INDICATIONS: pain TECHNIQUE: 3 views of the lumbar spine were acquired. COMPARISON: None. FINDINGS: Bones: 5 [id number] vertebrae are present. There is minimal retrolisthesis at T12-L1, L1-L2, L2-L3, and L5-S1. There is mild disc space facet arthropathy in the lower lumbar spine. No vertebral body compression fractures or other definite acute displaced fracture. No suspicious bony lesions. Soft tissues: Overlying bowel gas pattern is normal. No suspicious soft tissue calcifications. IMPRESSION: 1. No acute displaced fractures identified. 2. Mild facet arthropathy in the lower lumbar spine. Dictated by: Alireza Cheatham M.D. on 01/15/2019 at 21:11 Approved by: Alireza Cheatham M.D. on 01/15/2019 at 21:13
[2019-01-15 20:08] LABS: Add Manual Diff / Slide Review NO; Basophils Absolute Auto 0 /uL (0-100); Basophils Percent Auto 0.6 % (0-2); Eosinophils Absolute Auto 100 /uL (0-450); Eosinophils Percent Auto 1.1 % (2-4); Hematocrit 41.8 % (41-53); Hemoglobin 13.9 g/dL (13.5-17.5); Lymphocytes Absolute Auto 2400 /uL (1100-4500); Lymphocytes Percent Auto 36.1 % (25-40); Mean Corpuscular HGB Conc 33.2 % (30-36); Mean Corpuscular Hemoglobin 30.6 PG (26-34); Monocytes Absolute Auto 600 /uL (0-900); Monocytes Percent Auto 9.1 % (3-14); Neutrophils Absolute Auto 3500 /uL (1500-7000); Neutrophils Percent Auto 53.1 % (50-75); Platelet Count 175 X10^3/uL (150-400); Red Blood Cell Count 4.54 X10^6/uL (4.5-5.9); Red Cell Distribution Width 13.5 % (11.6-14.8); White Blood Cell Count 6.6 X10^3/uL (4.5-11.0)
[2019-01-15 20:19] LABS: Prothrombin Time 11.5 SECONDS (10.1-12.7)
[2019-01-15] MEDS: ACETAMINOPHEN 325 MG TABLET 650 MG PO (20:21)
[2019-01-15 20:22] LABS: PTT Partial Thromboplastin Tim 34 SECONDS (26.4-36.2)
[2019-01-15 20:25] LABS: Alanine Aminotransferase 23 IU/L (21-72); Albumin 4.6 g/dL (3.5-5.0); Albumin Globulin Ratio 1.3 (1.0-2.8); Alkaline Phosphatase 54 U/L (38-126); Aspartate Aminotransferase 22 IU/L (17-59); BUN Creatinine Ratio 18.8 (6-22); Bilirubin Total 0.3 mg/dL (0.2-1.3); Blood Urea Nitrogen 15 mg/dL (9-20); Calcium 9.7 mg/dL (8.4-10.2); Carbon Dioxide 32 mmol/L (22-32); Chloride 99 mmol/L (98-107); Estimated Glomerular Filt Rate > 60.0 mL/min (>60); Globulin 3.5 g/dL (1.7-4.1); Glucose 168 mg/dL (70-100); HEMOLYSIS < 15 (0-50); Magnesium 2.1 mg/dL (1.6-2.3); Potassium 4.3 mmol/L (3.4-5.1); Sodium 140 mmol/L (137-145); Total Protein 8.1 g/dL (6.3-8.2)
[2019-01-15 20:55] VITALS: BP 175/101; PULSE 105
[2019-01-15] MEDS: METOPROLOL ER 25 MG TABLET PO (20:55)
[2019-01-15 20:59] VITALS: BP 175/101; PULSE 105; RESP 14; O2SAT 98
[2019-01-15 21:25] VITALS: BP 164/89; PULSE 98; RESP 14; O2SAT 98
== END 2019-01-15 21:50 | disposition home or self-care (01) ==
PROVIDERS: Emergency Medicine; Emergency Provider Internal Medicine; PCP Family Medicine
DX: S00.03XA Contusion of scalp, initial encounter (principal); W10.8XXA Fall (on) (from) other stairs and steps, initial encounter
CPT/HCPCS: 36415; 70450; 72072; 72100; 80053; 82962; 83735; 85025; 85610; 85730; 93005; 99283; 99285

== ENCOUNTER → 2019-03-30 13:04 | Outpatient (CLI) | payer OTHER, SELFPAY ==
[2018-10-26 08:39] VITALS: BMI 28.3
--- NOTE | 2019-03-30 13:08 | DI.CT.S_ITS ---
PROCEDURE: CT CHEST ABD PEL WO CON INDICATIONS: Cerebellar Ataxia TECHNIQUE: After the administration of oral contrast, 5 mm thick sections acquired from the lung apices to the symphysis pubis. 5 mm thick coronal and sagittal reformats acquired, with additional 7 mm coronal MIP reformats through the lungs. For radiation dose reduction, the following was used: automated exposure control, adjustment of mA and/or kV according to patient size. COMPARISON: [facility], MR, MR STROKE, 04/29/2018, 11:52. [facility], CT, CT HEAD/BRAIN WO CON, 01/15/2019, 20:30. FINDINGS: Image quality: Excellent. CHEST: Lungs and pleura: There is a 7 mm calcified nodule in the right middle lobe, consistent with an old granulomatous No acute pulmonary opacities. No pleural effusions or pneumothorax. Central and peripheral airways are patent are normal in caliber. Mediastinum: Heart size is normal. No pericardial effusion. Moderate to severe coronary artery calcification is present. There are calcified lymph nodes in the right hilum and medicine.. Thoracic aorta and central pulmonary arteries are normal in size. Esophagus is normal in caliber. No hiatal hernia. Chest wall: No axillary or supraclavicular adenopathy by size criteria. Thyroid gland is normal. ABDOMEN: Solid organs: There is a calcified granuloma in the liver. Liver is normal in size. A 6 mm low density nodule in the right hepatic lobe is most likely a cyst. Gallbladder is normal. Pancreas is normal in contours. Spleen is normal in size. No adrenal nodules. Both kidneys are normal in size, without hydronephrosis or nephrolithiasis. Peritoneum and bowel: Small and large bowel loops are normal in caliber and wall thickness. No free fluid or air. Nodes and vessels: No retroperitoneal or mesenteric adenopathy by size criteria. Aorta and inferior vena cava are normal in size. Miscellaneous: No ventral hernias. PELVIS: Genitourinary: Bladder wall thickness is normal. Prostate is enlarged. Miscellaneous: No inguinal hernias or adenopathy. Bones: No suspicious bony lesions. No vertebral body compression fractures. IMPRESSION: 1. Remote granulomatous disease involving the right middle lobe, right hilum, mediastinum and liver. 2. Moderate to severe coronary artery calcification consistent with other sclerosis 3. A 6 mm low density nodule in liver is most likely a cyst. 4. Enlarged prostate. Dictated by: Janneth Short M.D. on 03/30/2019 at 14:06 Approved by: Janneth Short M.D. on 03/30/2019 at 17:33
== END ==
PROVIDERS: PCP Family Medicine; Visit Provider Family Medicine
DX: G11.9 Hereditary ataxia, unspecified (principal); I25.10 Atherosclerotic heart disease of native coronary artery without angina pectoris; K76.9 Liver disease, unspecified; N40.0 Benign prostatic hyperplasia without lower urinary tract symptoms
CPT/HCPCS: 71250; 74176

== ENCOUNTER → 2019-04-23 16:07 | Outpatient (CLI) | payer OTHER, SELFPAY ==
[2018-10-26 08:39] VITALS: BMI 28.3
[2019-04-23 17:32] LABS: Alanine Aminotransferase 20 IU/L (21-72); Albumin 4.8 g/dL (3.5-5.0); Albumin Globulin Ratio 1.4 (1.0-2.8); Alkaline Phosphatase 58 U/L (38-126); Aspartate Aminotransferase 26 IU/L (17-59); BUN Creatinine Ratio 16.3 (6-22); Bilirubin Total 0.5 mg/dL (0.2-1.3); Blood Urea Nitrogen 13 mg/dL (9-20); Calcium 10.3 mg/dL (8.4-10.2); Carbon Dioxide 31 mmol/L (22-32); Chloride 99 mmol/L (98-107); Cholesterol 276 mg/dL (140-199); Estimated Glomerular Filt Rate > 60.0 mL/min (>60); Globulin 3.4 g/dL (1.7-4.1); Glucose 137 mg/dL (70-100); HDL Cholesterol 79 mg/dL (40-60); HEMOLYSIS 30 (0-50); LDL Cholesterol Calculated 172 mg/dL (<100); Potassium 4.6 mmol/L (3.4-5.1); Sodium 141 mmol/L (137-145); Total Protein 8.2 g/dL (6.3-8.2); Triglycerides 123 mg/dL (35-150)
[2019-04-23 17:33] LABS: Hemoglobin A1C% w Est Avg Glu 7.1 % (4.0-6.0)
== END ==
PROVIDERS: PCP Family Medicine; Visit Provider Family Medicine
DX: E11.9 Type 2 diabetes mellitus without complications (principal); E78.5 Hyperlipidemia, unspecified
CPT/HCPCS: 36415; 80053; 80061; 83036

== ENCOUNTER → 2019-06-14 14:00 | Outpatient (CLI) | payer OTHER, SELFPAY ==
[2019-06-10 10:21] VITALS: BMI 28.3
[2019-06-16 14:31] LABS: Immunoglobulin G, Quantitative 1333 mg/dL (600-1640)
[2019-06-19 18:04] LABS: Vitamin B1 146 nmol/L (78-185)
== END ==
PROVIDERS: PCP Family Medicine; Visit Provider Family Medicine
DX: G11.9 Hereditary ataxia, unspecified (principal)
CPT/HCPCS: 36415; 82784; 84425

== ENCOUNTER → 2019-06-23 14:32 | Outpatient (CLI) | payer OTHER, SELFPAY ==
[2019-06-10 10:21] VITALS: BMI 28.3
[2019-06-23 15:51] LABS: Hemoglobin A1C% w Est Avg Glu 8.1 % (4.0-6.0)
[2019-06-23 16:34] LABS: Blood Urea Nitrogen 16 mg/dL (9-20); Calcium 10.3 mg/dL (8.4-10.2); Carbon Dioxide 33 mmol/L (22-32); Chloride 97 mmol/L (98-107); Estimated Glomerular Filt Rate > 60.0 mL/min (>60); Glucose 178 mg/dL (70-100); HEMOLYSIS < 15 (0-50); Potassium 4.8 mmol/L (3.4-5.1); Sodium 140 mmol/L (137-145)
== END ==
PROVIDERS: PCP Family Medicine; Visit Provider Family Medicine
DX: E11.9 Type 2 diabetes mellitus without complications (principal); I10 Essential (primary) hypertension; I25.10 Atherosclerotic heart disease of native coronary artery without angina pectoris
CPT/HCPCS: 36415; 80048; 83036

== ENCOUNTER 2019-06-24 09:04 | Day surgery (SDC) | payer OTHER, SELFPAY ==
[2019-06-10 10:21] VITALS: BMI 28.3
[2019-06-24] VITALS (8 sets, daily range): BP systolic 114–184; BP diastolic 75–105; PULSE 71–105; RESP 15–18; TEMP 36.7; O2SAT 97–99; BMI 27.1
[2019-06-24 09:49] LABS: Hematocrit 42.2 % (41-53); Platelet Count 178 X10^3/uL (150-400)
[2019-06-24 09:54] LABS: PTT Partial Thromboplastin Tim 34 SECONDS (26.4-36.2)
--- NOTE | 2019-06-24 10:59 | SUR.PREOP ---
pt left to DI at this time in stable condition via stretcher.
--- NOTE | 2019-06-24 11:28 | PC.NURSE ---
PT CO NAUSEA AND DIAPHORETIC, DR VILLARREAL ORDERED ZOFRAN 4MG IVP. MED GIVEN
--- NOTE | 2019-06-24 11:44 | PC.NURSE ---
PT STATES NAUSEA IS GONE AFTER MED.
[2019-06-24] MEDS: ONDANSETRON 4 MG/2 ML INJ IV (11:50)
--- NOTE | 2019-06-24 12:24 | SUR.PHASEII ---
PT RETURNED FROM RADIOLOGY, PER TECH PROCEDURE WAS NOT ABLE TO BE DONE, 2 RADIOLOGISTS ATTEMPTED PROCEDURE AND WERE UNSUCCESSFUL. WILL D/C PTS IV AND DISCHARGE HOME WITH FRIEND.
== END 2019-06-24 12:29 | disposition home or self-care (01) ==
LOC: OR 09:05
PROVIDERS: PCP Family Medicine; Visit Provider Family Medicine
PROC: 009U3ZZ Drainage of Spinal Canal, Percutaneous Approach (ICD-10-PCS; principal; 2019-06-24 12:00)
DX: G11.9 Hereditary ataxia, unspecified (principal); R42 Dizziness and giddiness; G25.9 Extrapyramidal and movement disorder, unspecified; R11.0 Nausea
CPT/HCPCS: 36415; 62270; 76000; 85014; 85049; 85610; 85730; J2405

== ENCOUNTER → 2019-06-24 10:19 | Outpatient (CLI) | payer OTHER, SELFPAY ==
[2019-06-10 10:21] VITALS: BMI 28.3
--- NOTE | 2019-06-24 | DI.RAD.S_ITS ---
PROCEDURE: FL GUIDED LUMBAR PUNCTURE LP INDICATIONS: Vertigo. Hereditary ataxia. TECHNIQUE: The indications, alternatives, benefits, risks, and complications were explained to the patient. Written informed consent was obtained and placed in the chart. The patient was placed in a prone position on the fluoroscopy table, and a level was chosen for percutaneous access under fluoroscopic guidance. The site was prepped and draped in a sterile fashion. After local anaesthetic, a spinal needle was then advanced towards the intrathecal space at L4-L5. No CSF fluid was obtained. A second puncture was performed at L3-L4. No CSF was obtained. A second radiologist Dr. Short then attempted a third puncture at the left L4-L5 level. No CSF was obtained. The patient experienced nausea at the beginning of the procedure and IV Zofran was administered which provided resolution of nausea. A bandage applied to the puncture site. FINDINGS: Puncture level: L4-L5 and L3-L4 Needle: Spinal needle. Opening pressure: Could not be obtained and not requested. CSF volume and description: Could not be obtained Medications: 1% lidocaine for anaesthesia. Complications: None Laboratories: CSF could not be obtained IMPRESSION: Unsuccessful fluoroscopically guided lumbar puncture despite attempts at three different sites and attempt by separate radiologist. Exam was discussed with Dr. Crystal Peñaloza, ordering provider. Dictated by: Scott Ibarra M.D. on 06/24/2019 at 12:42 Approved by: Scott Ibarra M.D. on 06/24/2019 at 12:55
== END ==
PROVIDERS: PCP Family Medicine; Visit Provider Family Medicine
DX: G11.9 Hereditary ataxia, unspecified (principal); G25.9 Extrapyramidal and movement disorder, unspecified
CPT/HCPCS: 62270; 76000

== ENCOUNTER 2019-07-23 08:55 | Day surgery (SDC) | payer OTHER, SELFPAY ==
[2019-06-10 10:21] VITALS: BMI 28.3
[2019-07-23] VITALS (12 sets, daily range): BP systolic 130–182; BP diastolic 77–105; PULSE 80–104; RESP 15–18; TEMP 36.3–36.9; O2SAT 95–104; BMI 26.6
--- NOTE | 2019-07-23 09:44 | DI.RAD.S_ITS ---
PROCEDURE: FL GUIDED LUMBAR PUNCTURE LP INDICATIONS: hereditary ataxia TECHNIQUE: The indications, alternatives, benefits, risks, and complications were explained to the patient. Written informed consent was obtained and placed in the chart. The patient was placed in a prone position on the fluoroscopy table, and a level was chosen for percutaneous access under fluoroscopic guidance. The site was prepped and draped in a sterile fashion. After local anaesthetic, a spinal needle was then used to enter the intrathecal space, with return of cerebrospinal fluid. After obtaining sufficient fluid, the needle was then withdrawn, and a bandage applied to the puncture site. FINDINGS: Puncture level: L4-L5 Needle: Spinal needle. Opening pressure: Not requested. CSF volume and description: Traumatic tap noted. There is initial clear CSF return, approximately 2-3 cc however then there was return of mixed CSF and heme. This appeared to clear towards the end of the procedure. The patient reported no pain during the study. Medications: 1% lidocaine for anaesthesia. Complications: No immediate complication Laboratories: As ordered by referring clinician. IMPRESSION: Successful fluoroscopically guided lumbar puncture. Dictated by: Tripp Lema M.D. on 07/23/2019 at 17:03 Approved by: Tripp Lema M.D. on 07/23/2019 at 17:06
[2019-07-23 10:04] LABS: Platelet Count 162 X10^3/uL (150-400)
[2019-07-23 10:18] LABS: Prothrombin Time 11.5 SECONDS (10.1-12.7)
--- NOTE | 2019-07-23 10:39 | SUR.PREOP ---
Pt left to DI at this time in stable condition via stretcher.
[2019-07-23 11:40] LABS: Appearance CSF Turbid (Clear); CSF Tube Number 3; CSF Tube Volume 1.0 mL; Color CSF Red (Colorless)
[2019-07-23 12:03] LABS: Glucose CSF 136 mg/dL (40-70)
[2019-07-23] MEDS: fentaNYL 100 MCG/2 ML INJ 50 MCG IV (13:19)
[2019-07-23] MEDS: MIDAZOLAM 2 MG/2 ML VIAL 1 MG IV (13:21)
[2019-08-03 13:34] LABS: Immunoglobulin G, Quantitative 1388
[2019-08-03 13:35] LABS: Vitamin B1 123
== END 2019-07-23 14:28 | disposition home or self-care (01) ==
PROVIDERS: PCP Family Medicine; Visit Provider Family Medicine
PROC: 009U3ZZ Drainage of Spinal Canal, Percutaneous Approach (ICD-10-PCS; principal; 2019-07-23 10:30)
DX: G11.9 Hereditary ataxia, unspecified (principal); G25.9 Extrapyramidal and movement disorder, unspecified
CPT/HCPCS: 36415; 62270; 76000; 82040; 82042; 82784; 82945; 83873; 83916; 84157; 84425; 85049; 85610; 86255; 86341; 86592; 89051; J2250; J3010

== ENCOUNTER → 2019-09-06 17:28 | Outpatient (CLI) | payer OTHER, SELFPAY ==
[2019-06-10 10:21] VITALS: BMI 28.3
[2019-09-09 14:06] LABS: Mitogen-NIL > 10.00 IU/mL; NIL 0.01 IU/mL; QuantiFERON TB NEGATIVE (Negative); TB1-NIL 0.01 IU/mL; TB2-NIL 0.01 IU/mL
[2019-09-09 16:11] LABS: Hepatitis A Antibody IgM NONREACTIVE; Hepatitis Acute Panel Interp 0.01; Hepatitis B Core Antibody IgM NONREACTIVE; Hepatitis B Surface Antigen NONREACTIVE; Hepatitis C Antibody NONREACTIVE
[2019-09-10 19:45] LABS: IgG Subclass 1 589 mg/dL (382-929); IgG Subclass 2 527 mg/dL (241-700); IgG Subclass 3 46 mg/dL (22-178); IgG Subclass 4 12.3 mg/dL (4.0-86.0); IgG Total 1063 mg/dL (600-1640)
== END ==
PROVIDERS: PCP Family Medicine; Visit Provider Family Medicine
DX: D89.9 Disorder involving the immune mechanism, unspecified (principal); R76.8 Other specified abnormal immunological findings in serum
CPT/HCPCS: 36415; 80074; 82784; 82787; 86480

== ENCOUNTER → 2019-10-26 10:00 | Oncology outpatient (ONC) | payer OTHER, SELFPAY ==
[2019-06-10 10:21] VITALS: BMI 28.3
[2019-08-10] MEDS: methylPREDNISolone 1,000 MG in SODIUM CHLORIDE 0.9% 250 ML 258 ML IV (14:35)
[2019-08-10 14:40] VITALS: BP 152/92; PULSE 102; TEMP 36.7; O2SAT 16
--- NOTE | 2019-08-10 16:01 | PC.NURSE ---
pt requested PIV to be left in. saline locked and left hand/wrist placed on arm board.
[2019-08-11 13:55] VITALS: BP 153/90; PULSE 100; RESP 16; TEMP 36.7; O2SAT 99
[2019-08-11] MEDS: methylPREDNISolone 1,000 MG in SODIUM CHLORIDE 0.9% 250 ML 258 ML IV (14:09)
[2019-08-12] MEDS: methylPREDNISolone 1,000 MG in SODIUM CHLORIDE 0.9% 250 ML 258 ML IV (14:28)
[2019-08-12 16:06] VITALS: BP 134/80; PULSE 85; RESP 20; TEMP 36.9; O2SAT 98
[2019-08-13 13:58] VITALS: BP 154/91; PULSE 90; RESP 17; TEMP 36.8; O2SAT 98
[2019-08-13] MEDS: methylPREDNISolone 1,000 MG in SODIUM CHLORIDE 0.9% 250 ML 258 ML IV (14:32)
--- NOTE | 2019-08-13 14:37 | PC.NURSE ---
PATIENT ARRIVED WITHOUT IV ACCESS. DIFFICULT IV START. JESSE HAD 2 ATTEMPTS, THIS PATIENT ACCESS, 1 ATTEMPT (SUCCESSFUL). WILL LEAVE IV IN WHEN PATIENT LEAVES, FOR INFUSION TOMORROW. PATIENT HAS HIS DTR W/ HIM TODAY. ENCOURAGED PO FLUID INTAKE, PATIENT ADMITS TO FEELING SOMEWHAT DEHYDRATED.
--- NOTE | 2019-08-13 16:13 | PC.NURSE ---
Infusion complete. Pt requested IV line to be kept in, as there were multiple attempts to start new IV today. IV wrapped and pt off AC unit via wheelchair to private vehicle driven by daughter.
[2019-08-14 13:56] LABS: Immunoglobulin A 171 mg/dL (47-310)
[2019-08-14 14:01] VITALS: BP 140/88; PULSE 92; RESP 16; O2SAT 98
[2019-08-14] MEDS: methylPREDNISolone 1,000 MG in SODIUM CHLORIDE 0.9% 250 ML IV (14:10)
--- NOTE | 2019-08-14 15:20 | PC.NURSE ---
infusion complete. IV DC'd with tip in tact
[2019-09-20 10:11] LABS: Add Manual Diff / Slide Review NO; Basophils Absolute Auto 0 /uL (0-100); Basophils Percent Auto 0.7 % (0-2); Eosinophils Absolute Auto 100 /uL (0-450); Eosinophils Percent Auto 1.1 % (2-4); Hematocrit 44.5 % (41-53); Hemoglobin 14.8 g/dL (13.5-17.5); Lymphocytes Absolute Auto 3000 /uL (1100-4500); Lymphocytes Percent Auto 43.7 % (25-40); Mean Corpuscular HGB Conc 33.4 % (30-36); Mean Corpuscular Hemoglobin 30.2 PG (26-34); Mean Corpuscular Volume 90.4 fL (80-100); Monocytes Absolute Auto 700 /uL (0-900); Monocytes Percent Auto 10.5 % (3-14); Neutrophils Absolute Auto 3000 /uL (1500-7000); Platelet Count 192 X10^3/uL (150-400); Red Blood Cell Count 4.92 X10^6/uL (4.5-5.9); Red Cell Distribution Width 13.9 % (11.6-14.8); White Blood Cell Count 6.9 X10^3/uL (4.5-11.0)
[2019-09-20 10:18] VITALS: BP 147/88; PULSE 94; RESP 16; TEMP 36.7; O2SAT 100
[2019-09-20 10:21] LABS: Blood Urea Nitrogen 14 mg/dL (9-20); Calcium 9.7 mg/dL (8.4-10.2); Carbon Dioxide 26 mmol/L (22-32); Chloride 99 mmol/L (98-107); Estimated Glomerular Filt Rate > 60.0 mL/min (>60); Glucose 246 mg/dL (70-100); HEMOLYSIS < 15 (0-50); Sodium 137 mmol/L (137-145)
[2019-09-20] MEDS: IMMUNE GLOBULIN IV (11:02)
[2019-09-20] MEDS: ISOOSMOTIC VEHICLE IV (11:02)
[2019-09-21] MEDS: ISOOSMOTIC VEHICLE IV (10:19)
[2019-09-21] MEDS: IMMUNE GLOBULIN IV (10:19)
[2019-09-21 10:29] VITALS: BP 144/80; PULSE 87; RESP 16; TEMP 36.8; O2SAT 97
[2019-09-22 09:51] VITALS: BP 149/80; PULSE 85; RESP 18; TEMP 36.5; O2SAT 96
[2019-09-22] MEDS: ISOOSMOTIC VEHICLE IV (09:53)
[2019-09-22] MEDS: IMMUNE GLOBULIN IV (09:53)
[2019-09-22 11:06] VITALS: BP 134/84; PULSE 85; RESP 16; TEMP 36.7; O2SAT 98
[2019-09-22 12:10] VITALS: BP 147/89; PULSE 77; RESP 18; TEMP 36.7; O2SAT 97
--- NOTE | 2019-09-22 12:14 | PC.NURSE ---
peripherial IV site LFA intact, day 2. flushed with NS
[2019-09-23 10:03] VITALS: BP 146/87; PULSE 81; RESP 16; TEMP 36.9; O2SAT 96
[2019-09-23] MEDS: IMMUNE GLOBULIN IV (10:32)
[2019-09-23] MEDS: ISOOSMOTIC VEHICLE IV (10:32)
[2019-09-23 12:30] VITALS: BP 153/88; PULSE 92; RESP 16; TEMP 36.8; O2SAT 96
[2019-09-23 13:06] VITALS: BP 152/83; PULSE 87; RESP 16; TEMP 36.8; O2SAT 96
[2019-09-24] MEDS: ISOOSMOTIC VEHICLE IV (09:48)
[2019-09-24] MEDS: IMMUNE GLOBULIN IV (09:48)
[2019-09-24 09:59] VITALS: BP 151/84; PULSE 84; RESP 18; TEMP 37; O2SAT 97
[2019-09-24 11:27] VITALS: BP 146/79; PULSE 71; RESP 16; TEMP 36.9
[2019-09-24 12:36] VITALS: BP 152/73; PULSE 86; RESP 18
[2019-09-28] MEDS: ISOOSMOTIC VEHICLE IV (10:19)
[2019-09-28] MEDS: IMMUNE GLOBULIN IV (10:19)
[2019-09-28 10:22] VITALS: BP 157/88; PULSE 87; RESP 16; TEMP 36.7; O2SAT 97
[2019-09-28 11:34] VITALS: BP 153/92; PULSE 85; RESP 16; TEMP 36.6; O2SAT 99
[2019-09-28 12:39] VITALS: BP 155/84; PULSE 93; RESP 16; TEMP 36.7; O2SAT 100
[2019-10-05] MEDS: ISOOSMOTIC VEHICLE IV (10:16)
[2019-10-05] MEDS: IMMUNE GLOBULIN IV (10:16)
[2019-10-05 10:56] LABS: Estimated Glomerular Filt Rate > 60.0 mL/min (>60)
[2019-10-05 11:47] VITALS: BP 156/84; PULSE 84; RESP 16; TEMP 36.7; O2SAT 95
[2019-10-05 12:44] VITALS: BP 149/79; PULSE 85; RESP 18; TEMP 36.7
[2019-10-12 09:37] VITALS: BP 147/94; PULSE 92; RESP 20; TEMP 36.8; O2SAT 99
[2019-10-12] MEDS: ISOOSMOTIC VEHICLE IV (09:53)
[2019-10-12] MEDS: IMMUNE GLOBULIN IV (09:53)
[2019-10-12 09:56] LABS: Add Manual Diff / Slide Review NO; Basophils Absolute Auto 100 /uL (0-100); Basophils Percent Auto 0.9 % (0-2); Eosinophils Absolute Auto 200 /uL (0-450); Eosinophils Percent Auto 2.6 % (2-4); Hematocrit 40.4 % (41-53); Hemoglobin 13.6 g/dL (13.5-17.5); Lymphocytes Absolute Auto 2600 /uL (1100-4500); Lymphocytes Percent Auto 45.2 % (25-40); Mean Corpuscular HGB Conc 33.7 % (30-36); Mean Corpuscular Hemoglobin 30.4 PG (26-34); Mean Corpuscular Volume 90.1 fL (80-100); Monocytes Absolute Auto 700 /uL (0-900); Monocytes Percent Auto 11.9 % (3-14); Neutrophils Absolute Auto 2300 /uL (1500-7000); Neutrophils Percent Auto 39.4 % (50-75); Platelet Count 189 X10^3/uL (150-400); Red Blood Cell Count 4.48 X10^6/uL (4.5-5.9); Red Cell Distribution Width 13.4 % (11.6-14.8); White Blood Cell Count 5.8 X10^3/uL (4.5-11.0)
[2019-10-12 10:38] LABS: BUN Creatinine Ratio 18.6 (6-22); Blood Urea Nitrogen 13 mg/dL (9-20); Calcium 9.4 mg/dL (8.4-10.2); Carbon Dioxide 29 mmol/L (22-32); Chloride 100 mmol/L (98-107); Estimated Glomerular Filt Rate > 60.0 mL/min (>60); Glucose 206 mg/dL (70-100); HEMOLYSIS < 15 (0-50); Potassium 4.2 mmol/L (3.4-5.1); Sodium 138 mmol/L (137-145)
[2019-10-19 10:52] LABS: Add Manual Diff / Slide Review NO; Basophils Absolute Auto 100 /uL (0-100); Eosinophils Absolute Auto 200 /uL (0-450); Eosinophils Percent Auto 2.6 % (2-4); Hematocrit 41.8 % (41-53); Hemoglobin 14.1 g/dL (13.5-17.5); Lymphocytes Absolute Auto 2800 /uL (1100-4500); Lymphocytes Percent Auto 44.7 % (25-40); Mean Corpuscular HGB Conc 33.7 % (30-36); Mean Corpuscular Hemoglobin 30.5 PG (26-34); Mean Corpuscular Volume 90.3 fL (80-100); Monocytes Absolute Auto 700 /uL (0-900); Monocytes Percent Auto 10.5 % (3-14); Neutrophils Absolute Auto 2600 /uL (1500-7000); Neutrophils Percent Auto 41.2 % (50-75); Platelet Count 183 X10^3/uL (150-400); Red Blood Cell Count 4.63 X10^6/uL (4.5-5.9); Red Cell Distribution Width 13.6 % (11.6-14.8); White Blood Cell Count 6.2 X10^3/uL (4.5-11.0)
--- NOTE | 2019-10-19 11:08 | PC.NURSE ---
Unable to get blood from patient for bmp after multiple blood draw attempts. Dr. Peñaloza contacted and verbal orders to start IVIG this week without lab results received by this RN.
[2019-10-19] MEDS: ISOOSMOTIC VEHICLE IV (11:14)
[2019-10-19] MEDS: IMMUNE GLOBULIN IV (11:14)
[2019-10-26 10:22] VITALS: BP 153/90; PULSE 84; RESP 16; TEMP 36.6; O2SAT 100
[2019-10-26] MEDS: IMMUNE GLOBULIN IV (10:38)
[2019-10-26] MEDS: ISOOSMOTIC VEHICLE IV (10:38)
[2019-10-26 10:45] LABS: Estimated Glomerular Filt Rate > 60.0 mL/min (>60)
[2019-10-26 12:28] VITALS: BP 153/86; PULSE 76; RESP 18; TEMP 36.7; O2SAT 98
== END ==
PROVIDERS: PCP Family Medicine; Visit Provider Family Medicine
DX: G11.9 Hereditary ataxia, unspecified (principal); R76.8 Other specified abnormal immunological findings in serum; N18.9 Chronic kidney disease, unspecified
CPT/HCPCS: 36000; 36415; 80048; 82565; 82784; 85025; 96365; 96366; J1561; J2930

== ENCOUNTER → 2019-11-30 11:41 | Outpatient (CLI) | payer OTHER, SELFPAY ==
[2019-06-10 10:21] VITALS: BMI 28.3
[2019-11-30 12:12] LABS: Add Manual Diff / Slide Review NO; Basophils Absolute Auto 0 /uL (0-100); Basophils Percent Auto 0.6 % (0-2); Eosinophils Absolute Auto 100 /uL (0-450); Eosinophils Percent Auto 1.3 % (2-4); Hematocrit 45.6 % (41-53); Hemoglobin 15.1 g/dL (13.5-17.5); Lymphocytes Absolute Auto 2500 /uL (1100-4500); Mean Corpuscular HGB Conc 33.1 % (30-36); Mean Corpuscular Hemoglobin 30.3 PG (26-34); Mean Corpuscular Volume 91.5 fL (80-100); Monocytes Absolute Auto 500 /uL (0-900); Monocytes Percent Auto 8.4 % (3-14); Neutrophils Absolute Auto 2900 /uL (1500-7000); Neutrophils Percent Auto 48.7 % (50-75); Platelet Count 184 X10^3/uL (150-400); Red Blood Cell Count 4.98 X10^6/uL (4.5-5.9); Red Cell Distribution Width 14.5 % (11.6-14.8); White Blood Cell Count 6.1 X10^3/uL (4.5-11.0)
[2019-11-30 13:09] LABS: Hemoglobin A1C% w Est Avg Glu 9.7 % (4.0-6.0)
[2019-11-30 13:52] LABS: Alanine Aminotransferase 17 IU/L (<50); Albumin 4.7 g/dL (3.5-5.0); Albumin Globulin Ratio 1.4 (1.0-2.8); Alkaline Phosphatase 70 U/L (38-126); Aspartate Aminotransferase 29 IU/L (17-59); BUN Creatinine Ratio 17.5 (6-22); Bilirubin Total 0.5 mg/dL (0.2-1.3); Blood Urea Nitrogen 14 mg/dL (9-20); Calcium 9.9 mg/dL (8.4-10.2); Carbon Dioxide 27 mmol/L (22-32); Chloride 99 mmol/L (98-107); Estimated Glomerular Filt Rate > 60.0 mL/min (>60); Globulin 3.4 g/dL (1.7-4.1); Glucose 169 mg/dL (70-100); HEMOLYSIS 18 (0-50); Potassium 4.1 mmol/L (3.4-5.1); Sodium 139 mmol/L (137-145); Total Protein 8.1 g/dL (6.3-8.2)
== END ==
PROVIDERS: PCP Family Medicine; Visit Provider Family Medicine
DX: R76.8 Other specified abnormal immunological findings in serum (principal); E11.9 Type 2 diabetes mellitus without complications; E78.5 Hyperlipidemia, unspecified; G11.9 Hereditary ataxia, unspecified; I10 Essential (primary) hypertension; I25.10 Atherosclerotic heart disease of native coronary artery without angina pectoris
CPT/HCPCS: 36415; 80053; 83036; 85025

== ENCOUNTER → 2019-12-31 16:03 | Outpatient (CLI) | payer OTHER, SELFPAY ==
[2019-06-10 10:21] VITALS: BMI 28.3
[2019-12-31 16:51] LABS: Add Manual Diff / Slide Review NO; Basophils Absolute Auto 0 /uL (0-100); Basophils Percent Auto 0.5 % (0-2); Eosinophils Absolute Auto 100 /uL (0-450); Hematocrit 43.8 % (41-53); Hemoglobin 14.5 g/dL (13.5-17.5); Lymphocytes Absolute Auto 2600 /uL (1100-4500); Lymphocytes Percent Auto 40.9 % (25-40); Mean Corpuscular Volume 90.8 fL (80-100); Monocytes Absolute Auto 500 /uL (0-900); Monocytes Percent Auto 8.4 % (3-14); Neutrophils Absolute Auto 3100 /uL (1500-7000); Neutrophils Percent Auto 49.2 % (50-75); Platelet Count 188 X10^3/uL (150-400); Red Blood Cell Count 4.83 X10^6/uL (4.5-5.9); White Blood Cell Count 6.2 X10^3/uL (4.5-11.0)
[2019-12-31 17:08] LABS: Alanine Aminotransferase 16 IU/L (<50); Albumin 4.8 g/dL (3.5-5.0); Albumin Globulin Ratio 1.4 (1.0-2.8); Alkaline Phosphatase 75 U/L (38-126); Aspartate Aminotransferase 26 IU/L (17-59); BUN Creatinine Ratio 21.4 (6-22); Bilirubin Total 0.3 mg/dL (0.2-1.3); Blood Urea Nitrogen 15 mg/dL (9-20); Carbon Dioxide 29 mmol/L (22-32); Chloride 99 mmol/L (98-107); Estimated Glomerular Filt Rate > 60.0 mL/min (>60); Globulin 3.5 g/dL (1.7-4.1); Glucose 198 mg/dL (70-100); HEMOLYSIS < 15 (0-50); Potassium 4.6 mmol/L (3.4-5.1); Sodium 138 mmol/L (137-145); Total Protein 8.3 g/dL (6.3-8.2)
== END ==
PROVIDERS: PCP Family Medicine; Visit Provider Family Medicine
DX: G11.9 Hereditary ataxia, unspecified (principal); Z79.899 Other long term (current) drug therapy
CPT/HCPCS: 36415; 80053; 85025

== ENCOUNTER → 2020-01-20 11:11 | Outpatient (CLI) | payer OTHER, SELFPAY ==
[2019-06-10 10:21] VITALS: BMI 28.3
[2020-01-20 12:00] LABS: Add Manual Diff / Slide Review NO; Basophils Absolute Auto 0 /uL (0-100); Basophils Percent Auto 0.6 % (0-2); Eosinophils Absolute Auto 100 /uL (0-450); Eosinophils Percent Auto 1.4 % (2-4); Hematocrit 42.3 % (41-53); Lymphocytes Absolute Auto 2400 /uL (1100-4500); Lymphocytes Percent Auto 40.2 % (25-40); Mean Corpuscular HGB Conc 33.2 % (30-36); Mean Corpuscular Volume 90.5 fL (80-100); Monocytes Absolute Auto 500 /uL (0-900); Monocytes Percent Auto 8.7 % (3-14); Neutrophils Absolute Auto 2900 /uL (1500-7000); Neutrophils Percent Auto 49.1 % (50-75); Platelet Count 172 X10^3/uL (150-400); Red Blood Cell Count 4.67 X10^6/uL (4.5-5.9); Red Cell Distribution Width 13.8 % (11.6-14.8)
[2020-01-20 12:12] LABS: Hemoglobin A1C% w Est Avg Glu 9.4 % (4.0-6.0)
[2020-01-20 12:30] LABS: Alanine Aminotransferase 17 IU/L (<50); Albumin 4.7 g/dL (3.5-5.0); Albumin Globulin Ratio 1.6 (1.0-2.8); Alkaline Phosphatase 67 U/L (38-126); Aspartate Aminotransferase 26 IU/L (17-59); BUN Creatinine Ratio 18.6 (6-22); Bilirubin Total 0.5 mg/dL (0.2-1.3); Blood Urea Nitrogen 13 mg/dL (9-20); Calcium 9.8 mg/dL (8.4-10.2); Carbon Dioxide 26 mmol/L (22-32); Chloride 101 mmol/L (98-107); Estimated Glomerular Filt Rate > 60.0 mL/min (>60); Glucose 220 mg/dL (70-100); HEMOLYSIS 23 (0-50); Potassium 4.9 mmol/L (3.4-5.1); Sodium 138 mmol/L (137-145); Total Protein 7.7 g/dL (6.3-8.2)
== END ==
PROVIDERS: PCP Family Medicine; Referring Provider Family Medicine; Visit Provider Family Medicine
DX: E11.9 Type 2 diabetes mellitus without complications (principal); G11.9 Hereditary ataxia, unspecified; I10 Essential (primary) hypertension; I25.10 Atherosclerotic heart disease of native coronary artery without angina pectoris; R76.8 Other specified abnormal immunological findings in serum
CPT/HCPCS: 36415; 80053; 83036; 85025

== ENCOUNTER → 2020-01-25 13:17 | Outpatient (CLI) | payer OTHER, SELFPAY ==
[2019-06-10 10:21] VITALS: BMI 28.3
--- NOTE | 2020-01-25 13:18 | DI.US.S_ITS ---
PROCEDURE: US ABDOMEN COMPLETE INDICATIONS: FOLLOW-UP LIVER CYST ON CT TECHNIQUE: Real-time scanning was performed of the abdominal and retroperitoneal organs, with image documentation. COMPARISON: [facility], CT, CT CHEST ABD PEL WO CON, 03/30/2019, 13:10. FINDINGS: Liver: Liver is normal in size and homogeneous in echotexture, with a 7 x 4 x 6 mm calcification at the right anterior hepatic lobe. No cyst is seen.. Gallbladder: The gallbladder appears normal. Biliary ducts: Intrahepatic bile ducts are non-dilated. Extrahepatic bile duct caliber measures 4.0 mm. Normal is 6-7 mm or less in diameter, or 10 mm or less post-cholecystectomy. Pancreas: Visualized portions of the pancreas are sonographically normal. Spleen: Spleen is normal in size and homogeneous in echotexture. Kidneys: Kidneys are normal in size and echotexture. Right kidney measures 10.6 cm long; left kidney measures 11.0 cm long. No hydronephrosis or nephrolithiasis. No solid masses. Aorta: Visualized aorta is normal in caliber at less than 3 cm. Iliacs: Proximal common iliac arteries are normal in caliber at less than 2.5 cm. IVC: Intrahepatic inferior vena cava is patent. Miscellaneous: No free abdominal fluid. IMPRESSION: Punctate calcification noted within the right liver, a right liver cyst previously present on CT scanning/ could not be located by ultrasound. No followup is recommended given the fact that that the cysts measure water density on the prior CT scan. Dictated by: Anatoly Rosen M.D. on 01/25/2020 at 14:48 Approved by: Anatoly Rosen M.D. on 01/25/2020 at 14:52
== END ==
PROVIDERS: PCP Family Medicine; Referring Provider Family Medicine; Visit Provider Family Medicine
DX: K76.89 Other specified diseases of liver (principal)
CPT/HCPCS: 76700

== ENCOUNTER → 2020-04-25 11:56 | Outpatient (CLI) | payer OTHER, SELFPAY ==
[2019-06-10 10:21] VITALS: BMI 28.3
[2020-04-25 13:08] LABS: Add Manual Diff / Slide Review NO; Basophils Absolute Auto 0 /uL (0-100); Basophils Percent Auto 0.6 % (0-2); Eosinophils Absolute Auto 100 /uL (0-450); Eosinophils Percent Auto 1.1 % (2-4); Hematocrit 46.4 % (41-53); Hemoglobin 15.2 g/dL (13.5-17.5); Lymphocytes Absolute Auto 3000 /uL (1100-4500); Lymphocytes Percent Auto 42.8 % (25-40); Mean Corpuscular HGB Conc 32.8 % (30-36); Mean Corpuscular Hemoglobin 29.9 PG (26-34); Mean Corpuscular Volume 91.3 fL (80-100); Monocytes Absolute Auto 700 /uL (0-900); Monocytes Percent Auto 9.6 % (3-14); Neutrophils Absolute Auto 3200 /uL (1500-7000); Neutrophils Percent Auto 45.9 % (50-75); Platelet Count 195 X10^3/uL (150-400); Red Blood Cell Count 5.08 X10^6/uL (4.5-5.9); Red Cell Distribution Width 13.8 % (11.6-14.8); White Blood Cell Count 7.1 X10^3/uL (4.5-11.0)
[2020-04-25 13:32] LABS: Alanine Aminotransferase 16 IU/L (<50); Albumin 5.1 g/dL (3.5-5.0); Albumin Globulin Ratio 1.5 (1.0-2.8); Alkaline Phosphatase 74 U/L (38-126); Aspartate Aminotransferase 26 IU/L (17-59); BUN Creatinine Ratio 25.7 (6-22); Bilirubin Total 0.7 mg/dL (0.2-1.3); Blood Urea Nitrogen 19 mg/dL (9-20); Calcium 10.3 mg/dL (8.4-10.2); Carbon Dioxide 26 mmol/L (22-32); Chloride 101 mmol/L (98-107); Cholesterol 309 mg/dL (140-199); Estimated Glomerular Filt Rate > 60.0 mL/min (>60); Globulin 3.3 g/dL (1.7-4.1); Glucose 237 mg/dL (70-100); HDL Cholesterol 66 mg/dL (40-60); HEMOLYSIS 22 (0-50); LDL Cholesterol Calculated 213 mg/dL (<100); Potassium 4.6 mmol/L (3.4-5.1); Sodium 140 mmol/L (137-145); Total Protein 8.4 g/dL (6.3-8.2); Triglycerides 150 mg/dL (35-150)
[2020-04-25 13:33] LABS: Hemoglobin A1C% w Est Avg Glu 10.5 % (4.0-6.0)
== END ==
PROVIDERS: PCP Family Medicine; Referring Provider Family Medicine; Visit Provider Family Medicine
DX: E11.9 Type 2 diabetes mellitus without complications (principal); E78.5 Hyperlipidemia, unspecified; I10 Essential (primary) hypertension; Z79.899 Other long term (current) drug therapy
CPT/HCPCS: 36415; 80053; 80061; 83036; 85025

== ENCOUNTER → 2020-07-18 17:06 | Outpatient (CLI) | payer OTHER, SELFPAY ==
[2019-06-10 10:21] VITALS: BMI 28.3
[2020-07-18 18:30] LABS: Add Manual Diff / Slide Review NO; Basophils Absolute Auto 0 /uL (0-100); Basophils Percent Auto 0.7 % (0-2); Eosinophils Absolute Auto 100 /uL (0-450); Eosinophils Percent Auto 1.4 % (2-4); Hematocrit 43.2 % (41-53); Lymphocytes Absolute Auto 2200 /uL (1100-4500); Lymphocytes Percent Auto 38.6 % (25-40); Mean Corpuscular HGB Conc 32.5 % (30-36); Mean Corpuscular Hemoglobin 29.9 PG (26-34); Monocytes Absolute Auto 600 /uL (0-900); Monocytes Percent Auto 10.1 % (3-14); Neutrophils Absolute Auto 2900 /uL (1500-7000); Neutrophils Percent Auto 49.2 % (50-75); Platelet Count 164 X10^3/uL (150-400); Red Blood Cell Count 4.69 X10^6/uL (4.5-5.9); Red Cell Distribution Width 13.8 % (11.6-14.8); White Blood Cell Count 5.8 X10^3/uL (4.5-11.0)
[2020-07-18 18:44] LABS: Hemoglobin A1C% w Est Avg Glu 10.7 % (4.0-6.0)
[2020-07-18 18:54] LABS: Alanine Aminotransferase 18 IU/L (<50); Albumin 4.6 g/dL (3.5-5.0); Albumin Globulin Ratio 1.5 (1.0-2.8); Alkaline Phosphatase 110 U/L (38-126); Aspartate Aminotransferase 23 IU/L (17-59); BUN Creatinine Ratio 10.6 (6-22); Bilirubin Total 0.4 mg/dL (0.2-1.3); Blood Urea Nitrogen 9 mg/dL (9-20); Calcium 9.5 mg/dL (8.4-10.2); Carbon Dioxide 29 mmol/L (22-32); Chloride 101 mmol/L (98-107); Cholesterol 206 mg/dL (140-199); Estimated Glomerular Filt Rate > 60.0 mL/min (>60); Glucose 257 mg/dL (70-100); HDL Cholesterol 64 mg/dL (40-60); HEMOLYSIS < 15 (0-50); LDL Cholesterol Calculated 108 mg/dL (<100); Potassium 5.2 mmol/L (3.4-5.1); Sodium 139 mmol/L (137-145); Total Protein 7.6 g/dL (6.3-8.2); Triglycerides 169 mg/dL (35-150)
== END ==
PROVIDERS: PCP Family Medicine; Referring Provider Family Medicine; Visit Provider Family Medicine
DX: E11.9 Type 2 diabetes mellitus without complications (principal); G11.9 Hereditary ataxia, unspecified; R76.8 Other specified abnormal immunological findings in serum; Z29.8 Encounter for other specified prophylactic measures
CPT/HCPCS: 36415; 80053; 80061; 83036; 85025

== ENCOUNTER → 2020-09-27 12:38 | Outpatient (CLI) | payer OTHER, SELFPAY ==
[2019-06-10 10:21] VITALS: BMI 28.3
[2020-09-27 13:20] LABS: Hemoglobin A1C% w Est Avg Glu 9.3 % (4.0-6.0)
[2020-09-27 14:00] LABS: Blood Urea Nitrogen 10 mg/dL (9-20); Calcium 9.6 mg/dL (8.4-10.2); Carbon Dioxide 33 mmol/L (22-32); Chloride 101 mmol/L (98-107); Estimated Glomerular Filt Rate > 60.0 mL/min (>60); Glucose 161 mg/dL (70-100); HEMOLYSIS < 15 (0-50); Potassium 4.8 mmol/L (3.4-5.1); Sodium 141 mmol/L (137-145)
== END ==
PROVIDERS: PCP Family Medicine; Referring Provider Family Medicine; Visit Provider Family Medicine
DX: E11.65 Type 2 diabetes mellitus with hyperglycemia (principal)
CPT/HCPCS: 36415; 80048; 83036

== ENCOUNTER → 2020-10-09 11:28 | Outpatient (CLI) | payer OTHER, SELFPAY ==
[2019-06-10 10:21] VITALS: BMI 28.3
[2020-10-09 13:09] LABS: Add Manual Diff / Slide Review NO; Basophils Absolute Auto 0 /uL (0-100); Basophils Percent Auto 0.6 % (0-2); Eosinophils Absolute Auto 100 /uL (0-450); Eosinophils Percent Auto 1.3 % (2-4); Hematocrit 42.5 % (41-53); Hemoglobin 14.2 g/dL (13.5-17.5); Lymphocytes Absolute Auto 2800 /uL (1100-4500); Lymphocytes Percent Auto 39.8 % (25-40); Mean Corpuscular HGB Conc 33.3 % (30-36); Mean Corpuscular Hemoglobin 30.6 PG (26-34); Monocytes Absolute Auto 600 /uL (0-900); Monocytes Percent Auto 9.3 % (3-14); Neutrophils Absolute Auto 3400 /uL (1500-7000); Platelet Count 183 X10^3/uL (150-400); Red Blood Cell Count 4.63 X10^6/uL (4.5-5.9); Red Cell Distribution Width 14.1 % (11.6-14.8); White Blood Cell Count 6.9 X10^3/uL (4.5-11.0)
[2020-10-09 16:15] LABS: Alanine Aminotransferase 24 IU/L (<50); Albumin 4.7 g/dL (3.5-5.0); Albumin Globulin Ratio 1.5 (1.0-2.8); Alkaline Phosphatase 80 U/L (38-126); Aspartate Aminotransferase 28 IU/L (17-59); Bilirubin Total 0.3 mg/dL (0.2-1.3); Bilirubin Unconjugated 0.2 mg/dL (0.0-1.1); Globulin 3.2 g/dL (1.7-4.1); HEMOLYSIS < 15 (0-50); Total Protein 7.9 g/dL (6.3-8.2)
[2020-10-13 16:39] LABS: TPMT Activity 19.4 (.)
== END ==
PROVIDERS: PCP Family Medicine; Referring Provider Psychiatry & Neurology Neurology; Visit Provider Psychiatry & Neurology Neurology
DX: Z79.899 Other long term (current) drug therapy (principal)
CPT/HCPCS: 36415; 80076; 82657; 85025

== ENCOUNTER → 2020-12-20 15:08 | Outpatient (CLI) | payer OTHER, SELFPAY ==
[2019-06-10 10:21] VITALS: BMI 28.3
[2020-12-20 15:57] LABS: Hemoglobin A1C% w Est Avg Glu 8.2 % (4.0-6.0)
[2020-12-20 15:59] LABS: BUN Creatinine Ratio 19.7 (6-22); Blood Urea Nitrogen 14 mg/dL (9-20); Calcium 9.7 mg/dL (8.4-10.2); Carbon Dioxide 34 mmol/L (22-32); Chloride 100 mmol/L (98-107); Estimated Glomerular Filt Rate > 60.0 mL/min (>60); Glucose 148 mg/dL (80-110); HEMOLYSIS < 15 (0-50); Sodium 140 mmol/L (137-145)
[2020-12-20 16:32] LABS: TSH w/ Reflex to FT4 1.98 uIU/mL (0.47-4.68)
[2020-12-20 16:50] LABS: Vitamin B12 793 pg/mL (239-931)
== END ==
PROVIDERS: PCP Family Medicine; Referring Provider Family Medicine; Visit Provider Family Medicine
DX: E11.65 Type 2 diabetes mellitus with hyperglycemia (principal)
CPT/HCPCS: 36415; 80048; 82607; 83036; 84443

== ENCOUNTER → 2021-02-14 12:56 | Outpatient (CLI) | payer OTHER, SELFPAY ==
[2019-06-10 10:21] VITALS: BMI 28.3
--- NOTE | 2021-02-14 12:57 | DIET.PN ---
Diabetes Intake: Initial Assessment Assess: Mr. Ordonez is a 60 YOM referred for type 2 diabetes. He reports 15 yr hx of diabetes with 6 yrs on metformin. He recently started on glipizide. He admittedly consumes a high carb diet. He does not monitor his blood sugar consistently. He has not been active due to chronic back pain r/t bulging discs, which he is seeing a neurologist. This has caused balance issues making walking more difficult. His is concerned some of his back medications are affecting his blood sugars. Labs: Per pt report: A1c: 8.2 Meds: metformin 1000mg BID; glipizide Diet: per 24 hr recall: B: sausage, eggs, ww toast, fruit L: turkey leegr chili w/ rice D: turkey sandwich on ww bread Sn: unsalted mixed nuts, fruit evening sn peach cobbler w/ ice cream; bananas; carrots Wt: 181lb Ht: 66in BMI: 29.2 BP: DX: Altered nutrition related laboratory values related to impaired glucose metabolism, lack of previous exposure to nutrition information as evidenced by pt report, diagnosis of diabetes, previous diet high in refined carbohydrates. Intervention: 1. Completed intake assessment. Discussed barriers to care. 2. Discussed pathophysiology of diabetes. Reviewed A1c and its correlation to blood glucose numbers. Discussed recommended BG ranges. 3. Discussed importance of self-monitoring, how often, and when to check. Provided demonstration on use of glucometer. 4. Reviewed hyper/hypoglycemia and treatment. 5. Reviewed safe disposal of equipment (strip/lancets/insulin needles). 6. Created SMART goals for pt self-care and success. 7. Discussed program curriculum outline and class needs based on individual goals. SMART Goals: 1. Pt goal weight 170 and A1c 7.0 through improved dietary habits, carb counting, portion control, and monitoring BG regularly. Monitor/Evaluate: Pt will attend full DSME program. Basic Nutrition class scheduled for March 14. Today?s visit was done via tele [email or web address]. 1 hour was spent [id number] by video. Patient consented to receive these services via tele [email or web address] using the [employer] application. Participants in the tele conference were myself and the patient only. I was located at [facility] and the patient at his/her home.
== END ==
PROVIDERS: PCP Family Medicine; Referring Provider Family Medicine; Visit Provider Family Medicine
DX: E11.9 Type 2 diabetes mellitus without complications (principal); Z79.84 Long term (current) use of oral hypoglycemic drugs
CPT/HCPCS: G0108

== ENCOUNTER → 2021-03-14 10:48 | Outpatient (CLI) | payer OTHER, SELFPAY ==
[2021-02-15 11:46] VITALS: BMI 28.3
--- NOTE | 2021-03-14 10:50 | DIET.PN ---
Diabetes: Healthy Eating 1 Intervention: ? Discussed pathophysiology of diabetes and impact of nutrition/diet on blood sugar control.? Discussed fed versus non-fed state.?? ? Reviewed importance of Balance, Variety, and Moderation. ? Discussed the effect of carbohydrates/protein/fat on blood sugar control.? ? Stressed importance of consistent carbohydrate intake at each meal and provided instructions for recommended servings/portions of carbohydrates/protein per meal. Provided educational material. ? Reviewed carbohydrate counting and measuring carbohydrate content via serving sizes and reading nutrition labels.? Provided handouts.?? ? Discussed the difference between simple versus complex carbohydrates and the effect of fiber on blood sugar control.? Discussed various methods to increase fiber content in diet. ? Discussed the plate method for creating more carbohydrate conscious balanced meals. ? Stressed importance of meal timing and not going >4-5 hours between meals. Encouraged adding protein to evening snack to support glucose control overnight. ? Discussed importance of making dietary habits part of lifestyle change. Today?s visit was done via [employer]. 1 hour was spent [id number] by video and phone. Patient consented to receive these services via [employer] using the [employer] application. Participants in the tele conference were myself and the patient and his . I was located at [facility] and the patient at his/her home.
== END ==
PROVIDERS: PCP Family Medicine; Referring Provider Family Medicine; Visit Provider Family Medicine
DX: E11.9 Type 2 diabetes mellitus without complications (principal); Z71.3 Dietary counseling and surveillance
CPT/HCPCS: G0108

== ENCOUNTER → 2021-03-28 13:04 | Outpatient (CLI) | payer OTHER, MEDICARE, SELFPAY ==
[2021-02-15 11:46] VITALS: BMI 28.3
[2021-03-28 14:36] LABS: Hemoglobin A1C% w Est Avg Glu 8.2 % (4.0-6.0)
== END ==
PROVIDERS: PCP Family Medicine; Referring Provider Family Medicine; Visit Provider Family Medicine
DX: E11.65 Type 2 diabetes mellitus with hyperglycemia (principal)
CPT/HCPCS: 36415; 83036

== ENCOUNTER → 2021-08-20 11:12 | Outpatient (CLI) | payer OTHER, MEDICARE, SELFPAY ==
[2021-02-15 11:46] VITALS: BMI 28.3
[2021-08-20 12:52] LABS: Hemoglobin A1C% w Est Avg Glu 8.6 % (4.0-6.0)
[2021-08-20 12:56] LABS: BUN Creatinine Ratio 17.8 (6-22); Blood Urea Nitrogen 13 mg/dL (9-20); Calcium 9.7 mg/dL (8.4-10.2); Carbon Dioxide 32 mmol/L (22-32); Chloride 103 mmol/L (98-107); Estimated Glomerular Filt Rate > 60.0 mL/min (>60); Glucose 164 mg/dL (80-110); Sodium 141 mmol/L (137-145)
[2021-08-20 12:57] LABS: HEMOLYSIS 229 (0-50); Potassium 5.9 mmol/L (3.4-5.1)
[2021-08-20 16:37] LABS: Creatinine Urine Random 266.9 mg/dL
[2021-08-20 16:45] LABS: Microalbumi Creatinin Ratio Ur 18.3 ug/mg CR (<30); Microalbumin Urine Random 4.9 mg/dL (0-1.6)
== END ==
PROVIDERS: PCP Family Medicine; Referring Provider Family Medicine; Visit Provider Family Medicine
DX: E11.65 Type 2 diabetes mellitus with hyperglycemia (principal)
CPT/HCPCS: 36415; 80048; 82043; 82570; 83036

== ENCOUNTER → 2022-01-10 10:06 | Outpatient (CLI) | payer OTHER, MEDICARE, SELFPAY ==
[2021-02-15 11:46] VITALS: BMI 28.3
[2022-01-10 11:14] LABS: Hemoglobin A1C% w Est Avg Glu 7.4 % (4.0-6.0)
[2022-01-10 11:47] LABS: HEMOLYSIS < 15 (0-50); Potassium 4.4 mmol/L (3.4-5.1)
== END ==
PROVIDERS: PCP Family Medicine; Referring Provider Family Medicine; Visit Provider Family Medicine
DX: E11.65 Type 2 diabetes mellitus with hyperglycemia (principal); E87.5 Hyperkalemia
CPT/HCPCS: 36415; 83036; 84132

== ENCOUNTER → 2022-10-01 10:41 | Outpatient (CLI) | payer OTHER, MEDICARE, SELFPAY ==
[2021-02-15 11:46] VITALS: BMI 28.3
[2022-10-01 12:08] LABS: Creatinine Urine Random 233.8 mg/dL
[2022-10-01 12:13] LABS: Microalbumi Creatinin Ratio Ur 15.8 ug/mg CR (<30); Microalbumin Urine Random 3.7 mg/dL (0-1.6)
== END ==
PROVIDERS: PCP Family Medicine; Visit Provider Family Medicine
DX: E11.65 Type 2 diabetes mellitus with hyperglycemia (principal)
CPT/HCPCS: 82043; 82570

== ENCOUNTER 2023-04-26 14:27 | Emergency (ER) | payer OTHER, MEDICARE, SELFPAY ==
[2021-02-15 11:46] VITALS: BMI 28.3
[2023-04-26 14:30] VITALS: BP 156/70; PULSE 71; RESP 15; TEMP 36.7; O2SAT 98; BMI 29.9
[2023-04-26] MEDS: TET,DIPH,PERTUSS(ACELL),VAC/PF 0.5 ML SYRINGE IM (15:04)
--- NOTE | 2023-04-26 15:06 | ED.SKABFB ---
HPI - Skin/Abscess/Foreign Bdy General Chief complaint: Skin/Abscess/Foreign Body Stated complaint: rt foot may be infected T 2 Diabetes Time Seen by Provider: 04/26/23 14:33 Source: patient Mode of arrival: Ambulatory Limitations: no limitations History of Present Illness HPI narrative: 62-year-old male nonsmoker with history of diabetes, coronary artery disease, cerebellar ataxia and stenosis of the left vertebral artery presents with his for evaluation of some redness and swelling adjacent to the toenail of his right great toe. He denies any trauma or injury. His states that she was performing foot care and when performing a pedicure today she noted some redness and swelling adjacent to the great toe and the drainage of a small amount of yellowish material and there here for evaluation of infection knowing there is increased risk due to his history of diabetes. The patient overall feels quite well and denies systemic complaints such as dizziness, weakness or lightheadedness. He has no chest pain, trouble breathing or cough. He is had no nausea, vomiting or diarrhea. He denies much in the way of pain and they state that this has only been present for 1 or 2 days at most Related Data Home Medications Medication Instructions Recorded Confirmed multivitamin with minerals 1 tab PO DAILY 04/28/18 01/03/23 sertraline 50 mg tablet 50 mg PO DAILY 12/14/20 01/03/23 azathioprine 50 mg tablet 75 mg PO DAILY ataxia 10/04/21 01/03/23 Previous Rx's Medication Instructions Recorded blood sugar diagnostic (Blood #100 ea 05/21/18 Glucose Test strips) aspirin 81 mg tablet,delayed 81 mg PO DAILY #90 tabs 04/12/19 release walker #1 ea 06/04/19 Disabled Parking Permit #1 ea 07/21/19 ondansetron 4 mg disintegrating 4 mg PO Q4H PRN nausea and 06/12/21 tablet vomiting #30 tabs losartan 100 mg tablet 100 mg PO DAILY #90 tabs 09/14/21 atorvastatin 40 mg tablet See Rx Instructions .Route 02/05/23 .COMPLEX #90 tabs glipizide 5 mg tablet, extended 5 mg PO DAILY #90 tabs 02/05/23 release 24 hr metformin 500 mg tablet See Rx Instructions .Route 02/05/23 .COMPLEX #360 tabs metoprolol succinate 50 mg See Rx Instructions .Route 02/05/23 tablet,extended release 24 hr .COMPLEX #90 tabs cephalexin 500 mg capsule 500 mg PO Q6H 7 days #28 caps 04/26/23 Allergies Allergy/AdvReac Type Severity Reaction Status Date / Time No Known Drug Allergies Allergy Verified 04/26/23 14:35 Review of Systems Review of Systems Narrative: GENERAL: Denies chills, fatigue, malaise, fever, sweats. HEENT: Denies sinus pain, ear pain, sore throat, difficulty swallowing, dizziness. RESPIRATORY: Denies dyspnea, cough, wheezing, hemoptysis, sputum. CARDIOVASCULAR: Denies chest pain, palpitations, orthopnea, edema, GASTROINTESTINAL: Denies nausea, vomiting, abdominal pain, diarrhea, constipation, melena. : Denies dysuria, frequency, incontinence, hematuria, urinary retention. MUSCULOSKELETAL: denies weakness, joint pain, or bony pain SKIN: See HPI NEUROLOGIC: Denies weakness, headache, numbness, change in speech, confusion, seizures, incoordination. PSYCHIATRIC: No concerning psychosocial issues. 12 point review of systems is negative except for those stated above Patient History Medical History (Updated 04/26/23 @ 15:04 by Eros Santos DO) Asbestosis Cataract (~2009) Chronic back pain (~2000) Coronary artery disease Coronary artery disease involving [place] coronary artery of [place] heart without angina pectoris (11/11/16) Diabetes Hearing loss (~1999) Heart attack (~2001) Hyperlipidemia (11/11/16) Hypertension Overweight (BMI 25.0-29.9) Positive ASAEL antibody SS-A antibody positive Stenosis of left vertebral artery Type 2 diabetes mellitus Vertigo Surgical History Anesthesia History of cataract surgery Surgical procedure planned (~2001) Family History Mother Diabetes mellitus Father No problems noted. Social History household members: spouse and family Smoking Status: Never smoker alcohol intake: former eating out: 1-3 times/week Type(s) of exercise: none Smoking Status: Never smoker alcohol intake frequency: 0-2 drinks per day Substance Use Type: does not use Exam Narrative Exam Narrative: GEN: AOx3 and in minimal, if any, distress EYES: Pupils are equal, round, and reactive to light and accommodation. Extraoccular muscles are intact bilaterally. There is no subconjunctival hemorrhage or exudate. CHEST: Lungs are clear to auscultation bilaterally and free of wheezes, rales, or rhonchi. Heart rate is regular rhythm, there are no murmurs, clicks, rubs, or gallops. There is no chest wall tenderness. ABD: Abdomen is soft and nontender. There is no guarding or rebound. Bowel sounds are normal in all 4 quadrants. There is no mass or organomegaly. EXT: Right great toe with minimal erythema at the medial edge of great toe with no fluctuance or current drainage, skin is intact and patient has sensation, there is no fluctuance or induration, nail bed and nail fold are intact, very minimal if any start to paronychia Full painless ROM of all extremities with no loss of sensation or strength. SKIN: Warm, pink, and dry. No erythema or rash Initial Vital Signs Initial Vital Signs: Vital Signs Temperature 98.1 F 04/26/23 14:30 Pulse Rate 71 04/26/23 14:30 Respiratory Rate 15 04/26/23 14:30 Blood Pressure 156/70 H 04/26/23 14:30 Pulse Oximetry 98 04/26/23 14:30 Oxygen Delivery Method Room Air 04/26/23 14:30 Course Orders Ordered: Discontinued Medications Diphtheria/Tetanus/Acell Pertussis (Tet,Diph,Pertuss(Acell),Vac/Pf 0.5 Ml Syringe) 0.5 ml IM .ONCE ONE Stop: 04/26/23 15:00 Last Admin: 04/26/23 15:04 Dose: 0.5 ml Documented By: FILI Vital Signs Vital signs: Vital Signs - 8 hr 04/26/23 14:30 Temperature 98.1 F Pulse Rate 71 Respiratory Rate 15 Blood Pressure 156/70 H Pulse Oximetry 98 Oxygen Delivery Method Room Air MDM - Skin/Abscess/Foreign Bdy MDM Narrative Medical decision making narrative: [62] year old patient presents with drainage on R great toe Multiple etiologies for patient's symptoms considered including, but not limited to: [Ingrown toenail versus paronychia versus other] Prior Charts reviewed in our EMR Primary Historian: patient Patient with very reassuring history and physical exam presents with 1 or 2 days of minimal erythema and slight purulent drainage medial to the right great toenail. He has no systemic complaints. There is no fluctuance or induration, no indication for procedural intervention at this time. Patient will require antibiotics and I suggested foot soaks in warm water with Epsom salts twice daily. I discussed the importance of close follow-up and provided contact information for Podiatry, suggesting they call the office on Friday. Return precautions including worsening pain, redness or drainage, significant swelling, red streaks or systemic complaints such as fever, chills nor nausea or vomiting or other bothersome symptoms Findings and discharge diagnosis discussed with patient/family followed by verbalization of understanding Return precautions discussed with patient/family whom verbalize understanding of diagnosis and plan Discharge Plan Departure Patient Disposition: Home Clinical Impression: Ingrowing toenail of left foot Instructions: DI for Infected Ingrown Toenail Activity Restrictions/Additional Instructions: *You have been diagnosed with [left great toe ingrown toenail] *What to do: *Please continue to take your regular medications as directed. [ x] New medication prescriptions sent to your pharmacy: [ [facility]] [ ] New medication written as a paper prescription [ ] No new medications given *Please follow up with your primary care provider in 2-3 days, call for an appointment. Let them know you were seen in the Emergency Department and that we ask that you be seen in follow up. We will electronically transmit a record of today's note if your PCP is in our system * also, as we discussed I have given you contact information for Dr. Covarrubias with Podiatry, please call the office on Friday, let them know that you were seen in the emergency department and we would like you seen in follow-up * as we discussed please soak your right foot in warm water with Epsom salts twice daily *Return to Emergency Department if you should have any new, worsening or concerning symptoms, such as [fever greater than 101 F, shaking chills, worsening pain, persistent vomiting or other bothersome symptoms] Prescriptions: New cephalexin 500 mg capsule 500 mg PO Q6H 7 Days Qty: 28 0RF No Action sertraline 50 mg tablet 50 mg PO DAILY Patient Comments: Prescribed by [place] doctor aspirin 81 mg tablet,delayed release (DR/EC) 81 mg PO DAILY Qty: 90 3RF (DME) walker Qty: 1 0RF Dose Instruction: As directed Rx Instructions: As directed (DME) Disabled Parking Permit Qty: 1 0RF Dose Instruction: As directed Rx Instructions: As directed ondansetron 4 mg tablet,disintegrating 4 mg PO Q4H PRN (Reason: nausea and vomiting) Qty: 30 0RF losartan 100 mg tablet 100 mg PO DAILY Qty: 90 3RF azathioprine 50 mg tablet 75 mg PO DAILY Patient Comments: Medication ordered by [facility] Neurologist Dr. Li atorvastatin 40 mg tablet See Rx Instructions .ROUTE .COMPLEX Qty: 90 1RF Dose Instruction: take 1 tablet by mouth at bedtime Rx Instructions: take 1 tablet by mouth at bedtime glipizide 5 mg tablet extended release 24hr 5 mg PO DAILY Qty: 90 1RF metformin 500 mg tablet See Rx Instructions .ROUTE .COMPLEX Qty: 360 1RF Dose Instruction: take 2 tablets by mouth twice a day Rx Instructions: take 2 tablets by mouth twice a day metoprolol succinate 50 mg tablet extended release 24 hr See Rx Instructions .ROUTE .COMPLEX Qty: 90 1RF Dose Instruction: take 1 tablet by mouth once daily for hypertension Rx Instructions: take 1 tablet by mouth once daily for hypertension (DME) blood sugar diagnostic [Blood Glucose Test] strip See Dose Instructions .ROUTE .MEDSUPPLY Qty: 100 8RF Dose Instruction: As directed Rx Instructions: As directed multivitamin with minerals Tablet 1 tab PO DAILY Referrals: Amanda Covarrubias DPM [Physician] - Avril Reynolds DO [Primary Care Provider] - Stand Alone Forms: Patient Portal/API
[2023-04-26 15:08] VITALS: BP 146/69; PULSE 78; RESP 18; O2SAT 98
== END 2023-04-26 15:21 | disposition home or self-care (01) ==
PROVIDERS: Emergency Provider Emergency Medicine; PCP Family Medicine
DX: L60.0 Ingrowing nail (principal); Z23 Encounter for immunization
CPT/HCPCS: 90471; 99283; 90715

== ENCOUNTER 2024-09-03 08:08 | Day surgery (SDC) | payer OTHER, SELFPAY ==
[2021-02-15 11:46] VITALS: BMI 28.3
[2024-09-03 08:48] VITALS: BP 174/91; PULSE 92; RESP 16; TEMP 36.3; O2SAT 97
[2024-09-03] MEDS: LACTATED RINGERS 1,000 ML 42 ML IV (08:53)
--- NOTE | 2024-09-03 09:22 | PM.HP.1 ---
History of Present Illness History of Present Illness Date Patient Seen: 09/03/24 Time Patient Seen: 09:22 Chief complaint: Colonoscopy Narrative: colon cancer screening, first scope, [place] guard has been negative. [facility] Medical History Type 2 diabetes mellitus Overweight (BMI 25.0-29.9) SS-A antibody positive Positive ASAEL antibody Asbestosis Chronic back pain (~2000) Hearing loss (~1999) Cataract (~2009) Heart attack (~2001) Hypertension Stenosis of left vertebral artery Vertigo Coronary artery disease Diabetes Hyperlipidemia (11/11/16) Coronary artery disease involving [place] coronary artery of [place] heart without angina pectoris (11/11/16) Surgical History Anesthesia History of cataract surgery Surgical procedure planned (~2001) Family History Mother Diabetes mellitus Father No problems noted. Social History household members: spouse and family Smoking Status: Never smoker alcohol intake: former eating out: 1-3 times/week Type(s) of exercise: none Meds Home Medications and Allergies Home Medications Medication Instructions Recorded Confirmed Type multivitamin with minerals 1 tab PO DAILY 04/28/18 06/24/24 History blood sugar diagnostic (Blood #100 ea 05/21/18 06/24/24 Rx Glucose Test strips) aspirin 81 mg tablet,delayed 81 mg PO DAILY #90 tabs 04/12/19 09/03/24 Rx release walker #1 ea 06/04/19 06/24/24 Rx Disabled Parking Permit #1 ea 07/21/19 06/24/24 Rx sertraline 50 mg tablet 50 mg PO DAILY 12/14/20 06/24/24 History ondansetron 4 mg disintegrating 4 mg PO Q4H PRN nausea and 06/12/21 06/24/24 Rx tablet vomiting #30 tabs losartan 100 mg tablet 100 mg PO DAILY #90 tabs 09/14/21 06/24/24 Rx azathioprine 50 mg tablet 75 mg PO DAILY ataxia 10/04/21 06/24/24 History atorvastatin 40 mg tablet See Rx Instructions .Route 02/05/23 06/24/24 Rx .COMPLEX #90 tabs glipizide 5 mg tablet, extended 5 mg PO DAILY #90 tabs 02/05/23 06/24/24 Rx release 24 hr metoprolol succinate 50 mg See Rx Instructions .Route 02/05/23 06/24/24 Rx tablet,extended release 24 hr .COMPLEX #90 tabs metformin 500 mg tablet 1,000 mg (2 x 500 mg) PO BID #120 10/02/23 09/03/24 Rx tabs inhalational spacing device #1 ea 07/02/24 Rx fluticasone propionate 44 2 puff inhalation BID #10.6 grams 07/26/24 Rx mcg/actuation HFA aerosol inhaler sodium,potassium,mag sulfates 17.5 See Rx Instructions PO .COMPLEX 08/04/24 Rx gram-3.13 gram-1.6 gram oral soln #354 mL (Suprep Bowel Prep Kit) Allergies Allergy/AdvReac Type Severity Reaction Status Date / Time No Known Drug Allergies Allergy Verified 09/03/24 08:46 Review of Systems Review of Systems Narrative: right hand tremor ROS: Yes All systems reviewed with the patient and are negative except as otherwise documented Exam Vital Signs (past 8 hours): - 09/03/24 08:48 Temperature 97.3 F L Pulse Rate 92 H Respiratory Rate 16 Blood Pressure 174/91 H Pulse Oximetry 97 Oxygen Delivery Method Room Air Oxygen Delivery Method Room Air Const General: cooperative, comfortable and well groomed Nutritional Appearance: average body habitus HENMT Head: normocephalic and atraumatic Ears: hearing grossly normal bilaterally Eyes Periorbital: periorbital findings normal Sclera: sclerae normal Neck Neck: trachea midline Resp Effort & Inspection: normal respiratory effort and able to speak in complete sentences Cardio Rate: regular rate Rhythm: regular rhythm GI Inspection: non-distended Palpation: soft Skin General: elasticity normal and No atrophy Neuro General: patient alert, patient awake and patient oriented x3 Cranial Nerves: tongue midline Speech: speech normal Psych Appearance: grossly normal Mental Status: mental status grossly normal Judgment: judgment good Assessment & Plan Assessment & Plan narrative: first colonoscopy for colon cancer screening using anesthesia Time-Based Coding :: [TOTAL MINUTES] spent with patient and on the chart (including review of chart, obtaining history, exam, reviewing outside data, placing orders, documenting exam and treatment plan, and counseling patient) on [DATE].
--- NOTE | 2024-09-03 09:45 | PM.OP.COLON ---
Operative Date/Time/Diagnoses Date of procedure: 09/03/24 Time of procedure: 09:45 Pre-op diagnosis: Colon cancer screening Post-op diagnosis: same Procedure & Clinicians Study performed: Colonoscopy with anesthesia Same procedure as scheduled: Yes Indications: Colon cancer screening Surgeon: Lisha Meraz Procedure Notes Procedure in detail: Preop diagnosis: Colon cancer screening Postop diagnosis: Same Operative procedure: Colonoscopy with anesthesia Surgeon: Joseline Meraz MD Findings: Slight decreased rectal tone, normal-sized prostate. No polyps identified Procedure: Patient placed in a lateral position. Rectal exam performed showing normal tone no masses. Colonoscope inserted into the rectum and advanced to ileocecal valve with minimal difficulty. Insufflation extraction of the scope and the above findings. Retroflex was included in the rectum. Impression: No polyps identified. Slight decreased rectal tone Plan: Repeat colonoscopy in 10 years is otherwise indicated by change in clinical condition Specimen(s): none sent Complications: none Post-procedure Recommendations: Colonoscopy in 10 years Follow up: as needed Disposition: PACU
[2024-09-03 09:48] VITALS: BP 113/71; PULSE 68; RESP 12; TEMP 36.3; O2SAT 98
[2024-09-03 09:53] VITALS: BP 121/73; PULSE 66; RESP 12; O2SAT 96
[2024-09-03 09:59] VITALS: BP 135/75; PULSE 74; RESP 16; TEMP 36.3; O2SAT 92
[2024-09-03 10:01] VITALS: BP 141/78; PULSE 73; RESP 12; TEMP 36.3; O2SAT 99
[2024-09-03 10:12] VITALS: BP 133/76; PULSE 85
== END 2024-09-03 10:23 | disposition home or self-care (01) ==
PROVIDERS: PCP Student in an Organized Health Care Education/Training Program; Referring Provider Surgery; Visit Provider Surgery
PROC: 0DJD8ZZ Inspection of Lower Intestinal Tract, Via Natural or Artificial Opening Endoscopic (ICD-10-PCS; CPT 45378; principal; 2024-09-03 09:15)
DX: Z12.11 Encounter for screening for malignant neoplasm of colon (principal)
CPT/HCPCS: 45378; J2704

== ENCOUNTER → 2024-11-15 17:14 | Outpatient (CLI) | payer OTHER, SELFPAY ==
[2021-02-15 11:46] VITALS: BMI 28.3
--- NOTE | 2024-11-15 17:16 | DI.RAD.S_ITS ---
PROCEDURE: XR CHEST 2V INDICATIONS: Cough TECHNIQUE: 2 views of the chest were acquired. COMPARISON: [facility], CR, XR CHEST 1V, 07/26/2018, 18:57. FINDINGS: Surgical changes and devices: None. Lungs and pleura: Lungs are clear. No pleural effusions or pneumothorax. Mediastinum: Mediastinal contours are normal. Heart size is normal. Bones and chest wall: No suspicious bony abnormalities. Soft tissues appear unremarkable. IMPRESSION: No acute cardiopulmonary abnormality is seen. Dictated by: Jin Sherman M.D. on 11/16/2024 at 8:13 Approved by: Jin Sherman M.D. on 11/16/2024 at 8:13
== END ==
LOC: RAD 17:15
PROVIDERS: PCP Student in an Organized Health Care Education/Training Program; Referring Provider Nurse Practitioner Family; Visit Provider Nurse Practitioner Family
DX: R05.9 Cough, unspecified (principal)
CPT/HCPCS: 71046

== ENCOUNTER → 2025-09-28 14:46 | Outpatient (CLI) | payer OTHER, SELFPAY ==
[2021-02-15 11:46] VITALS: BMI 28.3
[2025-09-28 17:05] LABS: Prostate Specific Antigen 11.0 ng/mL (0.10-4.00)
== END ==
PROVIDERS: Urology; PCP Student in an Organized Health Care Education/Training Program; Referring Provider Student in an Organized Health Care Education/Training Program; Visit Provider Student in an Organized Health Care Education/Training Program
DX: R97.20 Elevated prostate specific antigen [PSA] (principal)
CPT/HCPCS: 36415; 51798; 81002; 84153; 99213